=== PATIENT | male | born 1940 | race Caucasian/White ===

== ENCOUNTER 2017-08-17 15:50 | Emergency (ER) | payer MEDICARE, OTHER ==
[~2017-08-17] VITALS: Ht 177.8 cm; Wt 61.2 kg
[~2017-08-17 15:50] MED LIST: BUSPIRONE HCL15 MG PO; FISH OIL; FOLIC ACID1 MG PO; IRON TAB PO; LACTULOSE10 GM/15 M PO; OXYCONTIN30 MG PO; PANTOPRAZOLE SO40 MG PO; PROPRANOLOL HCL10 MG PO; SUCRALFATE1 GM; VITAMIN D PO; VITAMIN E; XANAX2 MG PO; XIFAXAN550 MG PO; [UNRECOGNIZED DRUG - OTHER] PO
== END 2017-08-17 17:41 | disposition left against medical advice (07) ==
LOC: ER 15:50
DX: K59.00 Constipation, unspecified (principal)
CPT/HCPCS: 99282

== ENCOUNTER 2019-11-26 18:46 | Inpatient (IN) | payer MEDICARE, OTHER ==
[~2019-11-26] VITALS: Ht 177.8 cm; Wt 61.2 kg
[~2019-11-26 18:46] MED LIST changes: -SUCRALFATE1 GM; +SUCRALFATE1 GM PO
[2019-11-26] MEDS ORDERED: LACTULOSE SYRUP 20 GM/30 ML UDC PO NR (19:00)
--- NOTE | 2019-11-26 19:09 | Emergency Department Note ---
History of Present Illnes History of Present Illness Chief Complaint: Abdominal Complaints History of Present Illness This is a 79 year old male arrives to ED with complaints of abdominal pain for several days, patient unable to be detailed history. Son states patient is on OxyContin and this is happening the past and is taking too much- where he becomes altered and more confused. Chief Complaint Comment LOWER QUADRANT PAIN. UNABLE TO ANSWER QUESTIONS APPROPRIATLY. JUST KEEPS SAYING I AM HURTING AND OH MY GOODNESS Historian: Patient Arrival Mode: Car Additional Treatment CAMPUS COORDINATOR: NONE Past Medical/Family History Physician Review I have reviewed the patient's past medical and family history. Any updates have been documented here. Past Medical History Recent Fever: No Clinical Suspicion of Infectio: No New/Unexplained Change in Ment: No Other Medical History: 1. Melena, resolved. 2. Alcoholic cirrhosis by history. 3. Anemia. 4. Thrombocytopenia. 5. Cancer of stomach by history, status post surgery, Radiation and Chemotherapy in 2007. 6. Dysrhythmia status post permanent pacemaker by history. 7. Right renal mass on CT abdomen detected during this hospitalization. 8. Chronic back pain with lumbar spondylosis. 9. Abnormal thyroid-stimulating hormone level. Other Surgery: REMOVED HALF OF STOMACH ([place]) Other Last Tetanus: UNK Review of Systems Review of Systems Constitutional: Reports no symptoms EENTM: Reports no symptoms Cardiovascular: Reports no symptoms Respiratory: Reports no symptoms Gastrointestinal: Reports as per HPI, Reports abdominal pain Genitourinary: Reports no symptoms Musculoskeletal: Reports no symptoms Integumentary: Reports no symptoms Neurological: Reports no symptoms Psychological: Reports no symptoms Endocrine: Reports no symptoms Hematological/Lymphatic: Reports no symptoms Physical Exam Related Data Allergies: Coded Allergies: No Known Drug Allergies (Verified Allergy, Mild, 01/10/08) Triage Vital Signs Vital Signs Date Time Temp Pulse Resp B/P (MAP) Pulse Ox O2 Delivery O2 Flow Rate FiO2 11/26/19 18:51 99.3 89 18 126/76 Room Air Physical Exam CONSTITUTIONAL Constitutional: Present well-developed, Present well-nourished HENT HENT: Present normocephalic, Present atraumatic, Present oropharynx clear/moist, Present nose normal HENT L/R: Present left ext ear normal, Present right ext ear normal EYES Eyes: Reports PERRL, Reports conjunctivae normal NECK Neck: Present ROM normal PULMONARY Pulmonary: Present effort normal, Present breath sounds normal CARDIOVASCULAR Cardiovascular: Present regular rhythm, Present heart sounds normal, Present capillary refill normal, Present normal rate GASTROINTESTINAL Abdominal: Present soft, Present nontender, Present bowel sounds normal GENITOURINARY Genitourinary: Present exam deferred SKIN Skin: Present warm, Present dry MUSCULOSKELETAL Musculoskeletal: Present ROM normal NEUROLOGICAL Neurological: Present alert, Present oriented x 3, Present no gross motor or sensory deficits PSYCHOLOGICAL Psychological: Present mood/affect normal, Present judgement normal Results Laboratory Lab results reviewed: Yes Laboratory comments Laboratory Tests Test 11/26/19 19:30 11/26/19 19:15 White Blood Count 11.88 x10e3/uL (4.8-10.8) Red Blood Count 3.78 x10e6/uL (4.3-5.7) Hemoglobin 11.6 g/dL (14.0-18.0) Hematocrit 35.2 % (38.2-49.6) Mean Corpuscular Volume 93.1 fL (81-99) Mean Corpuscular Hemoglobin 30.7 pg (28-32) Mean Corpuscular Hemoglobin Concent 33.0 g/dL (31-35) Red Cell Distribution Width 13.9 % (11.7-14.4) Platelet Count 137 x10e3/uL (140-360) Neutrophils (%) (Auto) 86.6 % (38.7-80.0) Lymphocytes (%) (Auto) 4.4 % (18.0-39.1) Monocytes (%) (Auto) 7.9 % (4.4-11.3) Eosinophils (%) (Auto) 0.3 % (0.0-6.0) Basophils (%) (Auto) 0.3 % (0.0-1.0) Neutrophils # (Auto) 10.3 (2.1-6.9) Lymphocytes # (Auto) 0.5 (1.0-3.2) Monocytes # (Auto) 0.9 (0.2-0.8) Eosinophils # (Auto) 0.0 (0.0-0.4) Basophils # (Auto) 0.0 (0.0-0.1) Absolute Immature Granulocyte (auto 0.06 x10e3/uL (0-0.1) Sodium Level 131 mmol/L (136-145) Potassium Level 5.2 mmol/L (3.5-5.1) Chloride Level 98 mmol/L (98-107) Carbon Dioxide Level 22 mmol/L (22-29) Anion Gap 16.2 mmol/L (8-16) Blood Urea Nitrogen 17 mg/dL (7-26) Creatinine 0.95 mg/dL (0.72-1.25) Estimat Glomerular Filtration Rate > 60 ML/MIN (60-) BUN/Creatinine Ratio 18 (6-25) Glucose Level 91 mg/dL (74-118) Calcium Level 8.7 mg/dL (8.4-10.2) Total Bilirubin 0.6 mg/dL (0.2-1.2) Aspartate Amino Transf (AST/SGOT) 45 IU/L (5-34) Alanine Aminotransferase (ALT/SGPT) 20 IU/L (0-55) Alkaline Phosphatase 71 IU/L (40-150) Ammonia 56 UG/DL (31-123) Creatine Kinase 144 IU/L (30-200) Creatine Kinase MB 3.90 ng/mL (0-5.0) Troponin I 0.015 ng/mL (0-0.300) Total Protein 7.0 g/dL (6.5-8.1) Albumin 3.7 g/dL (3.5-5.0) Globulin 3.3 g/dL (2.3-3.5) Albumin/Globulin Ratio 1.1 (0.8-2.0) Lipase 7 U/L (8-78) Urine Color Yellow (YELLOW) Urine Clarity Clear (CLEAR) Urine pH 7 (5 - 7) Urine Specific [place] 1.025 (1.010-1.025) Urine Protein Negative (NEGATIVE) Urine Glucose (UA) Negative (NEGATIVE) Urine Ketones Negative (NEGATIVE) Urine Blood Negative (NEGATIVE) Urine Nitrite Negative (NEGATIVE) Urine Bilirubin Negative (NEGATIVE) Urine Urobilinogen 1 mg/dL (0.2 - 1) Urine Leukocyte Esterase Negative (NEGATIVE) Urine RBC 0-5 /HPF (0-5) Urine WBC 0-5 /HPF (0-5) Urine Epithelial Cells None /LPF (NONE) Urine Bacteria Rare /HPF (NONE) Imaging Imaging results reviewed: Yes Impressions IMPRESSION: 1. Left lower lobe pneumonia. 2. Findings compatible with distal biliary obstruction due to choledocholithiasis in the distal common bile duct, with mild intrahepatic biliary ductal dilation and gallbladder distention. Correlate with lab values. Recommend right upper quadrant. 3. Pancreatic duct dilation can be due to pancreatic atrophy or due to distal pancreatic duct obstruction. 4. Colonic findings compatible with constipation. Assessment & Plan Medical Decision Making MDM 79-year-old male arrives to the ED with a change in mental status. Concerns of possible to much opiate use. Patient's pupils are pinpoint. Patient was admitted for altered mental status and closer monitoring. CT abdomen and pelvis performed given patient's complaints of pain. Concerning for choledocholithiasis. GI consulted and MRCP was ordered. CT shows questionable left lower lobe pneumonia, however, patient does not have a cough and low suspicion for this being a true clinical pneumonia based on patient's physical exam and history. No concerns of infection organ dysfunction at time of admission. Assessment & Plan Final Impression: (1) Choledocholithiasis Depart Disposition: ADMITTED Last Vital Signs Date Time Temp Pulse Resp B/P (MAP) Pulse Ox O2 Delivery O2 Flow Rate FiO2 11/26/19 18:51 99.3 89 18 126/76 Room Air Home Meds Reported Medications Lactulose (LACTULOSE) 10 Gm/15 Ml Solution, 10 GM PO TID 08/07/14 Oxycodone Hcl (OXYCONTIN) 30 Mg Tab.er.12h, 30 MG PO Q8H 08/07/14 Rifaximin (XIFAXAN) 550 Mg Tablet, 550 MG PO BID 04/25/12 Sucralfate (SUCRALFATE) 1 Gm Tablet, 1 GM PO BID 04/25/12 Medications in the ED Lactulose 20 gm ONCE ONCE PO ; Start 11/26/19 at 19:00; Stop 11/26/19 at 19:01; Status MARILYN LUGO, DO Nov 26, 2019 19:09
[2019-11-26 19:40] LABS: BASOPHILS % 0.3 % (0.0-1.0); EOSINOPHILS % 0.3 % (0.0-6.0); HEMATOCRIT 35.2 % (38.2-49.6); HEMOGLOBIN 11.6 g/dL (14.0-18.0); LYMPHOCYTES # (AUTO) 0.5 (1.0-3.2); LYMPHOCYTES % 4.4 % (18.0-39.1); MEAN CORPUSCULAR HEMOGLOBIN 30.7 pg (28-32); MEAN CORPUSCULAR VOLUME 93.1 fL (81-99); MONOCYTES # (AUTO) 0.9 (0.2-0.8); MONOCYTES % 7.9 % (4.4-11.3); NEUTROPHILS # (AUTO) 10.3 (2.1-6.9); NEUTROPHILS % 86.6 % (38.7-80.0); PLATELET COUNT 137 x10e3/uL (140-360); RED BLOOD COUNT 3.78 x10e6/uL (4.3-5.7); RED CELL DISTRIBUTION WIDTH 13.9 % (11.7-14.4)
--- OUTSIDE RECORDS SUMMARY | 2019-11-26 19:51 | XMS REPORT | Continuity of Care Document ---
Author Author [facility] Organization [facility] Address [address] [place] [place] [address] Phone Unavailable Care Team Providers Care Malt House Operator Name Role Phone TG FLOREZ MD PCP Payers Payer Name Policy Type Policy Number Effective Date Expiration Date S josselyn Miscellaneous Ppo [id number] 2004 00:00:00 [facility] Medicare A & B [id number] 2004 00:00:00 [facility] Problems Condition Name Condition Details Condition Category Status Onset Date Resolution Date Last Treatment Date Treating Clinician Comments Source Hepatic encephalopathy Hepatic encephalopathy Problem Active 2014-09-06 00:00:00 [facility] Hepatic cirrhosis Cirrhosis Problem Active 2014-09-05 00:00:00 [facility] Gastrointestinal hemorrhage GI bleed Problem Active 2014-09-05 00:00:00 [facility] Hyperammonemia Hyperammonemia Problem Active 2014-09-05 00:00:00 [facility] Allergies, Adverse Reactions, Alerts Allergy Name Allergy Type Status Severity Reaction(s) Onset Date Inacti ve Date Treating Clinician Comments Source adhesive tape DA Active 2017-04-10 00:00:00 [facility] nut - unspecified FA Active 2017-04-10 00:00:00 [facility] nut - unspecified DA Active 2017-04-10 00:00:00 [facility] Medications Ordered Medication Name Filled Medication Name Start Date Stop Da te Current Medication? Ordering Clinician Indication Dosage Frequency Signature (SIG) Comments Components Source Lactulose 10 Gm/15 Ml Solution Lactulose 10 Gm/15 Ml Solution Yes 1 Three Times A Day [facility] Oxycodone Hcl (Oxycontin) 30 Mg Tab.er.12h Oxycodone H cl (Oxycontin) 30 Mg Tab.er.12h Yes 30 Every 8 Hours C [facility] Rifaximin (Xifaxan) 550 Mg Tablet Rifaximin (Xifaxan) 550 Mg Tablet Yes 550 Twice A Day [facility] Sucralfate 1 Gm Tablet Sucralfate 1 Gm Tablet Yes 1 Twice A Day [facility] Pantoprazole Sodium (Protonix) 40 Mg Tablet., 40 Mg Oral Pantoprazole Sodium (Protonix) 40 Mg Tablet.dr, 40 Mg Oral 2016-09-03 00:00:00 No 40 Daily [facility] Propranolol Hcl 10 Mg Tablet, 10 Mg Oral Propranolol H cl 10 Mg Tablet, 10 Mg Oral 2016-09-03 00:00:00 No 10 Twice A Day [facility] Alprazolam (Xanax) 2 Mg Tablet, 4 Mg Oral Alprazolam ( Xanax) 2 Mg Tablet, 4 Mg Oral 2015-08-06 00:00:00 No 4 As Needed as neede d for Anxiety [facility] Folic Acid 1 Mg Tablet, 1 Mg Oral Folic Acid 1 Mg Tablet, 1 Mg O ral 2015-08-06 00:00:00 No 1 Daily [facility] Propranolol Hcl 10 Mg Tablet, 20 Mg Oral Propranolol H cl 10 Mg Tablet, 20 Mg Oral 2014-10-08 00:00:00 No 20 Twice A Day [facility] Buspirone Hcl 15 Mg Tablet, 15 Mg Oral Buspirone Hcl 15 Mg Table t, 15 Mg Oral 2014-08-07 00:00:00 No 15 Daily [facility] Fish Oil , Fish Oil , 2014-08-07 00:00:00 No Linda ly [facility] Folic Acid 1 Mg Tablet, 1 Mg Oral Folic Acid 1 Mg Tablet, 1 Mg O ral 2014-08-07 00:00:00 No 1 Daily [facility] Iron Tab , Mg Oral Iron Tab , Mg Oral 2014-08-07 00:00:00 No Daily [facility] Lactulo , 15 Mg Oral Lactulo , 15 Mg Oral 2014-08-07 00:00:00 No 15 Three Times A Day [facility] Vitamin D , Oral Vitamin D , Oral 2014-08-07 00:00:00 No Daily [facility] Vitamin E , Vitamin E , 2014-08-07 00:00:00 No D aily [facility] Procedures This patient has no known procedures. Encounters Start Date/Time End Date/Time [facility] ID Source 2017-08-17 15:50:00 2017-08-17 15:50:00 Registered Emergency Room [facility] [id number] [facility] 2016-12-15 10:23:00 2016-12-15 10:23:00 Registered Surgical Day Care [facility] [id number] [facility] Results Test Description Test Time Test Comments Results Result Comments Source - CT CHEST W/O CONTRAST 2019-06-29 10:32:00 Na me: JACK MANZANO [facility] : 1940 Age/S: 79 / M [address] [facility] Unit #: [id number] Loc: [place] [address] Phys: Tg Florez MD Acct: [id number] Dis Date: Status: REG CLI PHONE #: [phone] Exam Date: 06/29/2019927 FAX #: [phone] Reason: LUNG NODULE FU EXAMS: CPT CODE: [id number] CT CHEST W/O CONTRAST 88116 REASON FOR EXAM: LUNG NODULE FU EXAM ORDER DATE: 06/29/2019 9:25 AM Ordering MLuz Maria: Tg Florez MD PROCEDURE: - CT CHEST W/O CONTRAST Comparison:CT chest March 31, [address] images of the chest were obtained without IV contrast. Reconstructed sagittal and coronal images of the chest were provided for interpretation. Dose reduction techniques were applied. FINDINGS: The absence of IV contrast limits the sensitivity of this exam for detecting soft tissue pathology and differentiating atelectasis from consolidations. Visualized neck: Grossly normal Airways, Lungs and Pleura: There is a noncalcified nodule in the middle lobe (series 3 image 66) that measures 6 mm in size and is unchanged from the previous exam. There are a few additional punctate noncalcified nodules scattered throughout the right lung which are unchanged. Calcified granuloma in the left upper lobe abutting major fissure is stable in appearance. Heart, great vessels, pulmonary vessels, mediastinum: Left subclavian pacemaker is present with leads terminating in the right atrium and right ventricle. There is also severe three-vessel coronary atherosclerosis. Atherosclerotic calcifications are also present in the aorta. There is also a fusiform aneurysm of the ascending aorta measuring 4.5 cm in jason meter which is grossly unchanged from the previous examination. Normal caliber of the pulmonary trunk. Lymph nodes: No axillary, internal mammary, or mediastinal adenopathy. Calcified lymph nodes are present in the left hilum. Further evaluation of the hilar lymph nodes is limited due to the absence of IV contrast Musculoskeletal/chest wall: There are degenerative changes in the thoracic spine and there is height loss of the L1 vertebral body that PAGE 1 Signed Report (CONTINUED) Name: JACK MANZANO [facility] : 1940 Age/S: 79 / M [address] [facility] Unit #: [id number] Loc: [place] [address] Phys: Tg Florez MD Acct: [id number] Dis Date: Status: REG CLI PHONE #: [phone] Exam Date: 06/29/2019927 FAX #: [phone] Reason: LUNG NODULE FU EXAMS: CPT CODE: [id number] CT CHEST W/O CONTRAST [address]993 <Continued> is unchanged from the previous exam Visualized upper abdomen: Pancreas is atrophic. Postsurgical changes are present in the stomach. Heavy stool burden in the visualized colon IMPRESSION: Stable noncalcified nodule in the middle lobe of the right lung. This is likely benign. Prior granulomatous disease. Fusiform aneurysm of the ascending aorta is stable in size measuring 4.5 cm in diameter. Location: [facility] at 1032 Reported and signed by: Chiki Amos MD CC: Dr. Tg Florez Technologist:William Yarbrough RT(R),(MR),(CT) CTDI: DLP: Trnscb Date/Time: 06/29/2019 (1032) [id number] Orig Print D/T: S: 06/29/2019 (1467) PAGE 2 Signed Report COMPREHENSIVE METABOLIC PANEL 2019-06-19 17:22:00 Test Item SODIUM (test code = NA) 138 mmol/L 136-145 N POTASSIUM (test code = K) 4.9 mmol/L 3.5-5.1 N CHLORIDE (test code = CL) 104.0 mmol/L 98-107 N CARBON DIOXIDE (test code = CO2) 28.0 mmol/L 21-32 N ANION GAP (test code = GAP) 10.9 10-20 N GLUCOSE (test code = GLU) 91 mg/dL 74-106 N BLOOD UREA NITROGEN (test code = BUN) 10 mg/dL 7-18 N GLOMERULAR FILTRATION RATE (test code = GFR) > 60 mL/min >=60 Estimated GFR by using Modified MDRD formula.Chronic kidney disease is defined as either kidney damageor GFR <60 mL/min/1.73 m2 for >3 months. CREATININE (test code = CREAT) 0.80 mg/dL 0.7-1.3 N BUN/CREATININE RATIO (test code = BUN/CREA) 12.5 10-20 N TOTAL PROTEIN (test code = PROT) 7.0 gram/dL 6.4-8.2 N ALBUMIN (test code = ALB) 3.6 g/dL 3.4-5.0 N GLOBULIN (test code = GLOB) 3.4 gram/dL 2.7-4.2 N ALBUMIN/GLOBULIN RATIO (test code = A/G) 1.1 0.75-1.50 N CALCIUM (test code = CA) 8.9 mg/dL 8.5-10.1 N BILIRUBIN TOTAL (test code = BILT) 0.50 mg/dL 0.0-1.0 N SGOT/AST (test code = AST) 21 IUnit/L 15-37 N SGPT/ALT (test code = ALT) 19 IUnit/L 12-78 N ALKALINE PHOSPHATASE TOTAL (test code = ALKP) 102 IUnit/L 45-117 N Note change in reference range due to change in reagent. [id number] 17:22:00* Test Item Value Reference Range Interpretation Comments MAGNESIUM (test code = MAG) 2.1 mg/dL 1.8-2.4 N THYROID PROFILE [id number] 17:22:00* Test Item Value Reference Range Interpretation Comments T3 UPTAKE (test code = T3UP) 36.0 % 30.0-40.0 N T4 (THYROXINE) (test code = T4) 9.0 ug/dL 4.5-13.9 N T7 (FREE THYROXINE INDEX) (test code = T7) 3.24 FTI 1.3-5.1 N THYROID STIMULATING HORMONE (test code = TSH) 2.940 uIU/mL 0.36-3.7 4 N TSH REFERENCE RANGES: EUTHYROID: 0.35 - 4.3 mIU/mL HYPO : > 5.5 mIU/mL HYPER : < 0.35 mIU/mL COMPREHENSIVE METABOLIC [id number] 17:06:00* Test Item Value Reference Range Interpretation Comments SODIUM (test code = NA) 138 mmol/L 136-145 N POTASSIUM (test code = K) 4.9 mmol/L 3.5-5.1 N CHLORIDE (test code = CL) 104.0 mmol/L 98-107 N CARBON DIOXIDE (test code = CO2) mmol/L 21-32 ANION GAP (test code = GAP) 10-20 GLUCOSE (test code = GLU) mg/dL 74-106 BLOOD UREA NITROGEN (test code = BUN) mg/dL 7-18 GLOMERULAR FILTRATION RATE (test code = GFR) mL/min >=60 CREATININE (test code = CREAT) mg/dL 0.7-1.3 BUN/CREATININE RATIO (test code = BUN/CREA) 10-20 TOTAL PROTEIN (test code = PROT) gram/dL 6.4-8.2 ALBUMIN (test code = ALB) g/dL 3.4-5.0 GLOBULIN (test code = GLOB) gram/dL 2.7-4.2 ALBUMIN/GLOBULIN RATIO (test code = A/G) 0.75-1.50 CALCIUM (test code = CA) mg/dL 8.5-10.1 BILIRUBIN TOTAL (test code = BILT) mg/dL 0.0-1.0 SGOT/AST (test code = AST) IUnit/L 15-37 SGPT/ALT (test code = ALT) IUnit/L 12-78 ALKALINE PHOSPHATASE TOTAL (test code = ALKP) IUnit/L 45-117 [id number] 17:06:00* Test Item Value Reference Range Interpretation Comments MAGNESIUM (test code = MAG) mg/dL 1.8-2.4 THYROID PROFILE [id number] 17:06:00* Test Item Value Reference Range Interpretation Comments T3 UPTAKE (test code = T3UP) % 30.0-40.0 T4 (THYROXINE) (test code = T4) ug/dL 4.5-13.9 T7 (FREE THYROXINE INDEX) (test code = T7) FTI 1.3-5.1 THYROID STIMULATING HORMONE (test code = TSH) uIU/mL 0.36-3.7 4 CBC W/AUTO [id number] 16:41:00* Test Item Value Reference Range Interpretation Comments WHITE BLOOD CELL (test code = WBC) 3.5 K/mm3 4.5-12.5 L RED BLOOD CELL (test code = RBC) 4.23 mill/mm3 4.0-5.8 N HEMOGLOBIN (test code = HGB) 12.4 gram/dL 13.0-17.5 L HEMATOCRIT (test code = HCT) 38.4 % 42.0-52.0 L MEAN CELL VOLUME (test code = MCV) 90.8 fL 80-98 N MEAN CELL HGB (test code = MCH) 29.3 picogram 27.0-33.0 N MEAN CELL HGB CONCETRATION (test code = MCHC) 32.3 gram/dL 33.0-36. 0 L RED CELL DISTRIBUTION WIDTH (test code = RDW) 15.9 % 11.6-16. 2 N RED CELL DISTRIBUTION WIDTH SD (test code = RDW-SD) 53.4 fL 37 .0-51.0 H PLATELET COUNT (test code = PLT) 107 K/mm3 150-450 L MEAN PLATELET VOLUME (test code = MPV) 11.5 fL 6.7-11.0 H NEUTROPHIL % (test code = NT%) 50.8 % 39.0-69.0 N IMMATURE GRANULOCYTE % (test code = IG%) 0.3 % 0.0-5.0 N LYMPHOCYTE % (test code = LY%) 31.0 % 25.0-55.0 N MONOCYTE % (test code = MO%) 14.5 % 0.0-10.0 H EOSINOPHIL % (test code = EO%) 2.3 % 0.0-5.0 N BASOPHIL % (test code = BA%) 1.1 % 0.0-1.0 H NUCLEATED RBC % (test code = NRBC%) 0.0 % 0-0 N NEUTROPHIL # (test code = NT#) 1.79 K/mm3 1.8-7.7 L IMMATURE GRANULOCYTE # (test code = IG#) 0.01 x10 3/uL 0-0.03 N LYMPHOCYTE # (test code = LY#) 1.09 K/mm3 1.0-5.0 N MONOCYTE # (test code = MO#) 0.51 K/mm3 0-0.8 N EOSINOPHIL # (test code = EO#) 0.08 K/mm3 0.0-0.5 N BASOPHIL # (test code = BA#) 0.04 K/mm3 0.0-0.2 N NUCLEATED RBC # (test code = NRBC#) 0.00 K/mm3 0.0-0.1 N MANUAL DIFF REQUIRED (test code = MDIFF) NO BASIC METABOLIC [id number] 17:15:00* Test Item Value Reference Range Interpretation Comments SODIUM (test code = NA) 140 mmol/L 136-145 N POTASSIUM (test code = K) 4.4 mmol/L 3.5-5.1 N CHLORIDE (test code = CL) 108.0 mmol/L 98-107 H CARBON DIOXIDE (test code = CO2) 30.0 mmol/L 21-32 N ANION GAP (test code = GAP) 6.4 10-20 L GLUCOSE (test code = GLU) 93 mg/dL 74-106 N BLOOD UREA NITROGEN (test code = BUN) 13 mg/dL 7-18 N GLOMERULAR FILTRATION RATE (test code = GFR) > 60 mL/min >=60 Estimated GFR by using Modified MDRD formula.Chronic kidney disease is defined as either kidney damageor GFR <60 mL/min/1.73 m2 for >3 months. CREATININE (test code = CREAT) 0.90 mg/dL 0.7-1.3 N BUN/CREATININE RATIO (test code = BUN/CREA) 14.1 10-20 N CALCIUM (test code = CA) 8.8 mg/dL 8.5-10.1 N [id number] 17:15:00* Test Item Value Reference Range Interpretation Comments MAGNESIUM (test code = MAG) 2.2 mg/dL 1.8-2.4 N THYROID PROFILE [id number] 17:15:00* Test Item Value Reference Range Interpretation Comments T3 UPTAKE (test code = T3UP) 35.0 % 30.0-40.0 N T4 (THYROXINE) (test code = T4) 7.4 ug/dL 4.5-13.9 N T7 (FREE THYROXINE INDEX) (test code = T7) 2.59 FTI 1.3-5.1 N THYROID STIMULATING HORMONE (test code = TSH) 5.020 uIU/mL 0.36-3.7 4 H TSH REFERENCE RANGES: EUTHYROID: 0.35 - 4.3 mIU/mL HYPO : > 5.5 mIU/mL HYPER : < 0.35 mIU/mL BASIC METABOLIC [id number] 17:01:00* Test Item Value Reference Range Interpretation Comments SODIUM (test code = NA) 140 mmol/L 136-145 N POTASSIUM (test code = K) 4.4 mmol/L 3.5-5.1 N CHLORIDE (test code = CL) 108.0 mmol/L 98-107 H CARBON DIOXIDE (test code = CO2) mmol/L 21-32 ANION GAP (test code = GAP) 10-20 GLUCOSE (test code = GLU) mg/dL 74-106 BLOOD UREA NITROGEN (test code = BUN) mg/dL 7-18 GLOMERULAR FILTRATION RATE (test code = GFR) mL/min >=60 CREATININE (test code = CREAT) mg/dL 0.7-1.3 BUN/CREATININE RATIO (test code = BUN/CREA) 10-20 CALCIUM (test code = CA) mg/dL 8.5-10.1 [id number] 17:01:00* Test Item Value Reference Range Interpretation Comments MAGNESIUM (test code = MAG) mg/dL 1.8-2.4 THYROID PROFILE [id number] 17:01:00* Test Item Value Reference Range Interpretation Comments T3 UPTAKE (test code = T3UP) % 30.0-40.0 T4 (THYROXINE) (test code = T4) ug/dL 4.5-13.9 T7 (FREE THYROXINE INDEX) (test code = T7) FTI 1.3-5.1 THYROID STIMULATING HORMONE (test code = TSH) uIU/mL 0.36-3.7 4 COMPREHENSIVE METABOLIC [id number] 06:34:00* Test Item Value Reference Range Interpretation Comments SODIUM (test code = NA) 143 mmol/L 136-145 N POTASSIUM (test code = K) 3.6 mmol/L 3.5-5.1 N CHLORIDE (test code = CL) 113.0 mmol/L 98-107 H CARBON DIOXIDE (test code = CO2) 23.0 mmol/L 21-32 N ANION GAP (test code = GAP) 10.6 10-20 N GLUCOSE (test code = GLU) 87 mg/dL 74-106 N BLOOD UREA NITROGEN (test code = BUN) 7 mg/dL 7-18 N GLOMERULAR FILTRATION RATE (test code = GFR) > 60 mL/min >=60 Estimated GFR by using Modified MDRD formula.Chronic kidney disease is defined as either kidney damageor GFR <60 mL/min/1.73 m2 for >3 months. CREATININE (test code = CREAT) 0.60 mg/dL 0.7-1.3 L BUN/CREATININE RATIO (test code = BUN/CREA) 11.1 10-20 N TOTAL PROTEIN (test code = PROT) 4.9 gram/dL 6.4-8.2 L ALBUMIN (test code = ALB) 2.0 g/dL 3.4-5.0 L GLOBULIN (test code = GLOB) 2.9 gram/dL 2.7-4.2 N ALBUMIN/GLOBULIN RATIO (test code = A/G) 0.7 0.75-1.50 L CALCIUM (test code = CA) 7.4 mg/dL 8.5-10.1 L BILIRUBIN TOTAL (test code = BILT) 0.40 mg/dL 0.0-1.0 N SGOT/AST (test code = AST) 11 IUnit/L 15-37 L SGPT/ALT (test code = ALT) 10 IUnit/L 12-78 L ALKALINE PHOSPHATASE TOTAL (test code = ALKP) 46 IUnit/L 45-117 N Note change in reference range due to change in reagent. COMPREHENSIVE METABOLIC [id number] 06:14:00* Test Item Value Reference Range Interpretation Comments SODIUM (test code = NA) 143 mmol/L 136-145 N POTASSIUM (test code = K) 3.6 mmol/L 3.5-5.1 N CHLORIDE (test code = CL) 113.0 mmol/L 98-107 H CARBON DIOXIDE (test code = CO2) mmol/L 21-32 ANION GAP (test code = GAP) 10-20 GLUCOSE (test code = GLU) mg/dL 74-106 BLOOD UREA NITROGEN (test code = BUN) mg/dL 7-18 GLOMERULAR FILTRATION RATE (test code = GFR) mL/min >=60 CREATININE (test code = CREAT) mg/dL 0.7-1.3 BUN/CREATININE RATIO (test code = BUN/CREA) 10-20 TOTAL PROTEIN (test code = PROT) gram/dL 6.4-8.2 ALBUMIN (test code = ALB) g/dL 3.4-5.0 GLOBULIN (test code = GLOB) gram/dL 2.7-4.2 ALBUMIN/GLOBULIN RATIO (test code = A/G) 0.75-1.50 CALCIUM (test code = CA) mg/dL 8.5-10.1 BILIRUBIN TOTAL (test code = BILT) mg/dL 0.0-1.0 SGOT/AST (test code = AST) IUnit/L 15-37 SGPT/ALT (test code = ALT) IUnit/L 12-78 ALKALINE PHOSPHATASE TOTAL (test code = ALKP) IUnit/L 45-117 CBC W/AUTO [id number] 05:33:00* Test Item Value Reference Range Interpretation Comments WHITE BLOOD CELL (test code = WBC) 2.8 K/mm3 4.5-12.5 L RED BLOOD CELL (test code = RBC) 2.85 mill/mm3 4.0-5.8 L HEMOGLOBIN (test code = HGB) 8.7 gram/dL 13.0-17.5 L HEMATOCRIT (test code = HCT) 25.9 % 42.0-52.0 L MEAN CELL VOLUME (test code = MCV) 90.9 fL 80-98 N MEAN CELL HGB (test code = MCH) 30.5 picogram 27.0-33.0 N MEAN CELL HGB CONCETRATION (test code = MCHC) 33.6 gram/dL 33.0-36. 0 N RED CELL DISTRIBUTION WIDTH (test code = RDW) 15.9 % 11.6-16. 2 N RED CELL DISTRIBUTION WIDTH SD (test code = RDW-SD) 52.7 fL 37 .0-51.0 H PLATELET COUNT (test code = PLT) 97 K/mm3 150-450 L RESULT VERIFIED BY REPEAT ANALYSIS MEAN PLATELET VOLUME (test code = MPV) 10.7 fL 6.7-11.0 N NEUTROPHIL % (test code = NT%) 60.9 % 39.0-69.0 N IMMATURE GRANULOCYTE % (test code = IG%) 1.8 % 0.0-5.0 N LYMPHOCYTE % (test code = LY%) 17.0 % 25.0-55.0 L MONOCYTE % (test code = MO%) 16.0 % 0.0-10.0 H EOSINOPHIL % (test code = EO%) 3.2 % 0.0-5.0 N BASOPHIL % (test code = BA%) 1.1 % 0.0-1.0 H NUCLEATED RBC % (test code = NRBC%) 0.0 % 0-0 N NEUTROPHIL # (test code = NT#) 1.72 K/mm3 1.8-7.7 L IMMATURE GRANULOCYTE # (test code = IG#) 0.05 x10 3/uL 0-0.03 H LYMPHOCYTE # (test code = LY#) 0.48 K/mm3 1.0-5.0 L MONOCYTE # (test code = MO#) 0.45 K/mm3 0-0.8 N EOSINOPHIL # (test code = EO#) 0.09 K/mm3 0.0-0.5 N BASOPHIL # (test code = BA#) 0.03 K/mm3 0.0-0.2 N NUCLEATED RBC # (test code = NRBC#) 0.00 K/mm3 0.0-0.1 N MANUAL DIFF REQUIRED (test code = MDIFF) NO CBC W/AUTO [id number] 07:30:00* Test Item Value Reference Range Interpretation Comments WHITE BLOOD CELL (test code = WBC) 4.3 K/mm3 4.5-12.5 L RED BLOOD CELL (test code = RBC) 2.75 mill/mm3 4.0-5.8 L HEMOGLOBIN (test code = HGB) 8.5 gram/dL 13.0-17.5 L HEMATOCRIT (test code = HCT) 25.2 % 42.0-52.0 L MEAN CELL VOLUME (test code = MCV) 91.6 fL 80-98 N MEAN CELL HGB (test code = MCH) 30.9 picogram 27.0-33.0 N MEAN CELL HGB CONCETRATION (test code = MCHC) 33.7 gram/dL 33.0-36. 0 N RED CELL DISTRIBUTION WIDTH (test code = RDW) 15.9 % 11.6-16. 2 N RED CELL DISTRIBUTION WIDTH SD (test code = RDW-SD) 52.7 fL 37 .0-51.0 H PLATELET COUNT (test code = PLT) 74 K/mm3 150-450 L MEAN PLATELET VOLUME (test code = MPV) 10.5 fL 6.7-11.0 N NEUTROPHIL % (test code = NT%) 69.9 % 39.0-69.0 H IMMATURE GRANULOCYTE % (test code = IG%) 1.4 % 0.0-5.0 N LYMPHOCYTE % (test code = LY%) 13.6 % 25.0-55.0 L MONOCYTE % (test code = MO%) 12.7 % 0.0-10.0 H EOSINOPHIL % (test code = EO%) 1.9 % 0.0-5.0 N BASOPHIL % (test code = BA%) 0.5 % 0.0-1.0 N NUCLEATED RBC % (test code = NRBC%) 0.0 % 0-0 N NEUTROPHIL # (test code = NT#) 2.98 K/mm3 1.8-7.7 N IMMATURE GRANULOCYTE # (test code = IG#) 0.06 x10 3/uL 0-0.03 H LYMPHOCYTE # (test code = LY#) 0.58 K/mm3 1.0-5.0 L MONOCYTE # (test code = MO#) 0.54 K/mm3 0-0.8 N EOSINOPHIL # (test code = EO#) 0.08 K/mm3 0.0-0.5 N BASOPHIL # (test code = BA#) 0.02 K/mm3 0.0-0.2 N NUCLEATED RBC # (test code = NRBC#) 0.00 K/mm3 0.0-0.1 N MANUAL DIFF REQUIRED (test code = MDIFF) NO, ONLY SCAN NEEDED DIFFERENTIAL [id number] 07:30:00* Test Item Value Reference Range Interpretation Comments STAIN ACCEPTABILITY (test code = STN ACCEPTABLE) STAIN ACCEPTABLE POIKILOCYTOSIS (test code = POIK) 3+ ANISOCYTOSIS (test code = ANISO) 1+ MACROCYTOSIS (test code = MACR) 1+ TARGET CELLS (test code = TGT) 1+ ELLIPTOCYTES (test code = ELL) 1+ CRENATED CELLS (test code = CREN) 2+ PLATELET ESTIMATE (test code = PLTEST) DECREASED PLATELET MORPHOLOGY (test code = PLTMORPH) SIZE VARIABLE COMPREHENSIVE METABOLIC [id number] 04:36:00* Test Item Value Reference Range Interpretation Comments SODIUM (test code = NA) 146 mmol/L 136-145 H POTASSIUM (test code = K) 3.4 mmol/L 3.5-5.1 L CHLORIDE (test code = CL) 114.0 mmol/L 98-107 H CARBON DIOXIDE (test code = CO2) 24.0 mmol/L 21-32 N ANION GAP (test code = GAP) 11.4 10-20 N GLUCOSE (test code = GLU) 113 mg/dL 74-106 H BLOOD UREA NITROGEN (test code = BUN) 7 mg/dL 7-18 N GLOMERULAR FILTRATION RATE (test code = GFR) > 60 mL/min >=60 Estimated GFR by using Modified MDRD formula.Chronic kidney disease is defined as either kidney damageor GFR <60 mL/min/1.73 m2 for >3 months. CREATININE (test code = CREAT) 0.80 mg/dL 0.7-1.3 N BUN/CREATININE RATIO (test code = BUN/CREA) 9.1 10-20 L TOTAL PROTEIN (test code = PROT) 4.8 gram/dL 6.4-8.2 L ALBUMIN (test code = ALB) 2.1 g/dL 3.4-5.0 L GLOBULIN (test code = GLOB) 2.7 gram/dL 2.7-4.2 N ALBUMIN/GLOBULIN RATIO (test code = A/G) 0.8 0.75-1.50 N CALCIUM (test code = CA) 7.3 mg/dL 8.5-10.1 L BILIRUBIN TOTAL (test code = BILT) 0.50 mg/dL 0.0-1.0 N SGOT/AST (test code = AST) 10 IUnit/L 15-37 L SGPT/ALT (test code = ALT) 13 IUnit/L 12-78 N ALKALINE PHOSPHATASE TOTAL (test code = ALKP) 45 IUnit/L 45-117 N Note change in reference range due to change in reagent. COMPREHENSIVE METABOLIC [id number] 04:23:00* Test Item Value Reference Range Interpretation Comments SODIUM (test code = NA) 146 mmol/L 136-145 H POTASSIUM (test code = K) 3.4 mmol/L 3.5-5.1 L CHLORIDE (test code = CL) 114.0 mmol/L 98-107 H CARBON DIOXIDE (test code = CO2) mmol/L 21-32 ANION GAP (test code = GAP) 10-20 GLUCOSE (test code = GLU) mg/dL 74-106 BLOOD UREA NITROGEN (test code = BUN) mg/dL 7-18 GLOMERULAR FILTRATION RATE (test code = GFR) mL/min >=60 CREATININE (test code = CREAT) mg/dL 0.7-1.3 BUN/CREATININE RATIO (test code = BUN/CREA) 10-20 TOTAL PROTEIN (test code = PROT) gram/dL 6.4-8.2 ALBUMIN (test code = ALB) g/dL 3.4-5.0 GLOBULIN (test code = GLOB) gram/dL 2.7-4.2 ALBUMIN/GLOBULIN RATIO (test code = A/G) 0.75-1.50 CALCIUM (test code = CA) mg/dL 8.5-10.1 BILIRUBIN TOTAL (test code = BILT) mg/dL 0.0-1.0 SGOT/AST (test code = AST) IUnit/L 15-37 SGPT/ALT (test code = ALT) IUnit/L 12-78 ALKALINE PHOSPHATASE TOTAL (test code = ALKP) IUnit/L 45-117 CBC W/AUTO [id number] 04:13:00* Test Item Value Reference Range Interpretation Comments WHITE BLOOD CELL (test code = WBC) 4.3 K/mm3 4.5-12.5 L RED BLOOD CELL (test code = RBC) 2.75 mill/mm3 4.0-5.8 L HEMOGLOBIN (test code = HGB) 8.5 gram/dL 13.0-17.5 L HEMATOCRIT (test code = HCT) 25.2 % 42.0-52.0 L MEAN CELL VOLUME (test code = MCV) 91.6 fL 80-98 N MEAN CELL HGB (test code = MCH) 30.9 picogram 27.0-33.0 N MEAN CELL HGB CONCETRATION (test code = MCHC) 33.7 gram/dL 33.0-36. 0 N RED CELL DISTRIBUTION WIDTH (test code = RDW) 15.9 % 11.6-16. 2 N RED CELL DISTRIBUTION WIDTH SD (test code = RDW-SD) 52.7 fL 37 .0-51.0 H PLATELET COUNT (test code = PLT) 74 K/mm3 150-450 L MEAN PLATELET VOLUME (test code = MPV) 10.5 fL 6.7-11.0 N NEUTROPHIL % (test code = NT%) 69.9 % 39.0-69.0 H IMMATURE GRANULOCYTE % (test code = IG%) 1.4 % 0.0-5.0 N LYMPHOCYTE % (test code = LY%) 13.6 % 25.0-55.0 L MONOCYTE % (test code = MO%) 12.7 % 0.0-10.0 H EOSINOPHIL % (test code = EO%) 1.9 % 0.0-5.0 N BASOPHIL % (test code = BA%) 0.5 % 0.0-1.0 N NUCLEATED RBC % (test code = NRBC%) 0.0 % 0-0 N NEUTROPHIL # (test code = NT#) 2.98 K/mm3 1.8-7.7 N IMMATURE GRANULOCYTE # (test code = IG#) 0.06 x10 3/uL 0-0.03 H LYMPHOCYTE # (test code = LY#) 0.58 K/mm3 1.0-5.0 L MONOCYTE # (test code = MO#) 0.54 K/mm3 0-0.8 N EOSINOPHIL # (test code = EO#) 0.08 K/mm3 0.0-0.5 N BASOPHIL # (test code = BA#) 0.02 K/mm3 0.0-0.2 N NUCLEATED RBC # (test code = NRBC#) 0.00 K/mm3 0.0-0.1 N MANUAL DIFF REQUIRED (test code = MDIFF) NO, ONLY SCAN NEEDED DIFFERENTIAL [id number] 04:13:00* Test Item Value Reference Range Interpretation Comments STAIN ACCEPTABILITY (test code = STN ACCEPTABLE) CABOT RINGS (test code = CAB) MORPHOLOGY COMMENT (test code = MOC) PLATELET ESTIMATE (test code = PLTEST) PLATELET MORPHOLOGY (test code = PLTMORPH) CBC W/AUTO [id number] 04:13:00* Test Item Value Reference Range Interpretation Comments WHITE BLOOD CELL (test code = WBC) 4.3 K/mm3 4.5-12.5 L RED BLOOD CELL (test code = RBC) 2.75 mill/mm3 4.0-5.8 L HEMOGLOBIN (test code = HGB) 8.5 gram/dL 13.0-17.5 L HEMATOCRIT (test code = HCT) 25.2 % 42.0-52.0 L MEAN CELL VOLUME (test code = MCV) 91.6 fL 80-98 N MEAN CELL HGB (test code = MCH) 30.9 picogram 27.0-33.0 N MEAN CELL HGB CONCETRATION (test code = MCHC) 33.7 gram/dL 33.0-36. 0 N RED CELL DISTRIBUTION WIDTH (test code = RDW) 15.9 % 11.6-16. 2 N RED CELL DISTRIBUTION WIDTH SD (test code = RDW-SD) 52.7 fL 37 .0-51.0 H PLATELET COUNT (test code = PLT) 74 K/mm3 150-450 L MEAN PLATELET VOLUME (test code = MPV) 10.5 fL 6.7-11.0 N NEUTROPHIL % (test code = NT%) 69.9 % 39.0-69.0 H IMMATURE GRANULOCYTE % (test code = IG%) 1.4 % 0.0-5.0 N LYMPHOCYTE % (test code = LY%) 13.6 % 25.0-55.0 L MONOCYTE % (test code = MO%) 12.7 % 0.0-10.0 H EOSINOPHIL % (test code = EO%) 1.9 % 0.0-5.0 N BASOPHIL % (test code = BA%) 0.5 % 0.0-1.0 N NUCLEATED RBC % (test code = NRBC%) 0.0 % 0-0 N NEUTROPHIL # (test code = NT#) 2.98 K/mm3 1.8-7.7 N IMMATURE GRANULOCYTE # (test code = IG#) 0.06 x10 3/uL 0-0.03 H LYMPHOCYTE # (test code = LY#) 0.58 K/mm3 1.0-5.0 L MONOCYTE # (test code = MO#) 0.54 K/mm3 0-0.8 N EOSINOPHIL # (test code = EO#) 0.08 K/mm3 0.0-0.5 N BASOPHIL # (test code = BA#) 0.02 K/mm3 0.0-0.2 N NUCLEATED RBC # (test code = NRBC#) 0.00 K/mm3 0.0-0.1 N MANUAL DIFF REQUIRED (test code = MDIFF) NO, ONLY SCAN NEEDED DIFFERENTIAL [id number] 04:13:00* Test Item Value Reference Range Interpretation Comments STAIN ACCEPTABILITY (test code = STN ACCEPTABLE) CABOT RINGS (test code = CAB) MORPHOLOGY COMMENT (test code = MOC) PLATELET ESTIMATE (test code = PLTEST) PLATELET MORPHOLOGY (test code = PLTMORPH) CBC W/AUTO [id number] 04:13:00* Test Item Value Reference Range Interpretation Comments WHITE BLOOD CELL (test code = WBC) 4.3 K/mm3 4.5-12.5 L RED BLOOD CELL (test code = RBC) 2.75 mill/mm3 4.0-5.8 L HEMOGLOBIN (test code = HGB) 8.5 gram/dL 13.0-17.5 L HEMATOCRIT (test code = HCT) 25.2 % 42.0-52.0 L MEAN CELL VOLUME (test code = MCV) 91.6 fL 80-98 N MEAN CELL HGB (test code = MCH) 30.9 picogram 27.0-33.0 N MEAN CELL HGB CONCETRATION (test code = MCHC) 33.7 gram/dL 33.0-36. 0 N RED CELL DISTRIBUTION WIDTH (test code = RDW) 15.9 % 11.6-16. 2 N RED CELL DISTRIBUTION WIDTH SD (test code = RDW-SD) 52.7 fL 37 .0-51.0 H PLATELET COUNT (test code = PLT) 74 K/mm3 150-450 L MEAN PLATELET VOLUME (test code = MPV) 10.5 fL 6.7-11.0 N NEUTROPHIL % (test code = NT%) 69.9 % 39.0-69.0 H IMMATURE GRANULOCYTE % (test code = IG%) 1.4 % 0.0-5.0 N LYMPHOCYTE % (test code = LY%) 13.6 % 25.0-55.0 L MONOCYTE % (test code = MO%) 12.7 % 0.0-10.0 H EOSINOPHIL % (test code = EO%) 1.9 % 0.0-5.0 N BASOPHIL % (test code = BA%) 0.5 % 0.0-1.0 N NUCLEATED RBC % (test code = NRBC%) 0.0 % 0-0 N NEUTROPHIL # (test code = NT#) 2.98 K/mm3 1.8-7.7 N IMMATURE GRANULOCYTE # (test code = IG#) 0.06 x10 3/uL 0-0.03 H LYMPHOCYTE # (test code = LY#) 0.58 K/mm3 1.0-5.0 L MONOCYTE # (test code = MO#) 0.54 K/mm3 0-0.8 N EOSINOPHIL # (test code = EO#) 0.08 K/mm3 0.0-0.5 N BASOPHIL # (test code = BA#) 0.02 K/mm3 0.0-0.2 N NUCLEATED RBC # (test code = NRBC#) 0.00 K/mm3 0.0-0.1 N MANUAL DIFF REQUIRED (test code = MDIFF) NO, ONLY SCAN NEEDED DIFFERENTIAL [id number] 04:13:00* Test Item Value Reference Range Interpretation Comments STAIN ACCEPTABILITY (test code = STN ACCEPTABLE) MORPHOLOGY COMMENT (test code = MOC) PLATELET ESTIMATE (test code = PLTEST) PLATELET MORPHOLOGY (test code = PLTMORPH) CBC W/AUTO [id number] 04:13:00* Test Item Value Reference Range Interpretation Comments WHITE BLOOD CELL (test code = WBC) 4.3 K/mm3 4.5-12.5 L RED BLOOD CELL (test code = RBC) 2.75 mill/mm3 4.0-5.8 L HEMOGLOBIN (test code = HGB) 8.5 gram/dL 13.0-17.5 L HEMATOCRIT (test code = HCT) 25.2 % 42.0-52.0 L MEAN CELL VOLUME (test code = MCV) 91.6 fL 80-98 N MEAN CELL HGB (test code = MCH) 30.9 picogram 27.0-33.0 N MEAN CELL HGB CONCETRATION (test code = MCHC) 33.7 gram/dL 33.0-36. 0 N RED CELL DISTRIBUTION WIDTH (test code = RDW) 15.9 % 11.6-16. 2 N RED CELL DISTRIBUTION WIDTH SD (test code = RDW-SD) 52.7 fL 37 .0-51.0 H PLATELET COUNT (test code = PLT) 74 K/mm3 150-450 L MEAN PLATELET VOLUME (test code = MPV) 10.5 fL 6.7-11.0 N NEUTROPHIL % (test code = NT%) 69.9 % 39.0-69.0 H IMMATURE GRANULOCYTE % (test code = IG%) 1.4 % 0.0-5.0 N LYMPHOCYTE % (test code = LY%) 13.6 % 25.0-55.0 L MONOCYTE % (test code = MO%) 12.7 % 0.0-10.0 H EOSINOPHIL % (test code = EO%) 1.9 % 0.0-5.0 N BASOPHIL % (test code = BA%) 0.5 % 0.0-1.0 N NUCLEATED RBC % (test code = NRBC%) 0.0 % 0-0 N NEUTROPHIL # (test code = NT#) 2.98 K/mm3 1.8-7.7 N IMMATURE GRANULOCYTE # (test code = IG#) 0.06 x10 3/uL 0-0.03 H LYMPHOCYTE # (test code = LY#) 0.58 K/mm3 1.0-5.0 L MONOCYTE # (test code = MO#) 0.54 K/mm3 0-0.8 N EOSINOPHIL # (test code = EO#) 0.08 K/mm3 0.0-0.5 N BASOPHIL # (test code = BA#) 0.02 K/mm3 0.0-0.2 N NUCLEATED RBC # (test code = NRBC#) 0.00 K/mm3 0.0-0.1 N MANUAL DIFF REQUIRED (test code = MDIFF) NO, ONLY SCAN NEEDED DIFFERENTIAL [id number] 04:13:00* Test Item Value Reference Range Interpretation Comments STAIN ACCEPTABILITY (test code = STN ACCEPTABLE) CABOT RINGS (test code = CAB) MORPHOLOGY COMMENT (test code = MOC) PLATELET ESTIMATE (test code = PLTEST) PLATELET MORPHOLOGY (test code = PLTMORPH) CBC W/MANUAL [id number] 06:45:00* Test Item Value Reference Range Interpretation Comments WHITE BLOOD CELL (test code = WBC) 5.9 K/mm3 4.5-12.5 N RED BLOOD CELL (test code = RBC) 2.81 mill/mm3 4.0-5.8 L HEMOGLOBIN (test code = HGB) 8.6 gram/dL 13.0-17.5 L HEMATOCRIT (test code = HCT) 25.8 % 42.0-52.0 L MEAN CELL VOLUME (test code = MCV) 91.8 fL 80-98 N MEAN CELL HGB (test code = MCH) 30.6 picogram 27.0-33.0 N MEAN CELL HGB CONCETRATION (test code = MCHC) 33.3 gram/dL 33.0-36. 0 N RED CELL DISTRIBUTION WIDTH (test code = RDW) 15.8 % 11.6-16. 2 N RED CELL DISTRIBUTION WIDTH SD (test code = RDW-SD) 52.7 fL 37 .0-51.0 H PLATELET COUNT (test code = PLT) 72 K/mm3 150-450 L MEAN PLATELET VOLUME (test code = MPV) 11.2 fL 6.7-11.0 H IMMATURE GRANULOCYTE % (test code = IG%) 0.8 % 0.0-5.0 N NUCLEATED RBC % (test code = NRBC%) 0.0 % 0-0 N NEUTROPHIL # (test code = NT#) 4.80 K/mm3 1.8-7.7 N IMMATURE GRANULOCYTE # (test code = IG#) 0.05 x10 3/uL 0-0.03 H LYMPHOCYTE # (test code = LY#) 0.45 K/mm3 1.0-5.0 L MONOCYTE # (test code = MO#) 0.54 K/mm3 0-0.8 N EOSINOPHIL # (test code = EO#) 0.06 K/mm3 0.0-0.5 N BASOPHIL # (test code = BA#) 0.03 K/mm3 0.0-0.2 N NUCLEATED RBC # (test code = NRBC#) 0.00 K/mm3 0.0-0.1 N MANUAL DIFF REQUIRED (test code = MDIFF) YES STAIN ACCEPTABILITY (test code = STN ACCEPTABLE) STAIN ACCEPTABLE TOTAL CELLS COUNTED (test code = TCC) 115 #CELLS SEGMENTED NEUTROPHILS (test code = SEG) 92.2 % 39-69 H BAND NEUTROPHIL (test code = BAND) 0 % 0-10 N LYMPHOCYTE (test code = LYMPH) 1.7 % 25-55 L REACTIVE LYMPH (test code = RELYMPH) 1.7 % MONOCYTE (test code = MON) 2.6 % 0-10 N EOSINOPHIL (test code = EOS) 1.8 % 0.0-5.0 N BASOPHIL (test code = BASO) 0 % 0-1.0 N METAMYELOCYTE (test code = META) 0 % 0-0 N MYELOCYTE (test code = MYELO) 0 % 0.0-0.0 N PROMYELOCYTE (test code = PROM) 0 % 0-0 N POIKILOCYTOSIS (test code = POIK) 3+ ANISOCYTOSIS (test code = ANISO) 1+ MACROCYTOSIS (test code = MACR) 1+ UZIEL CELLS (test code = UZIEL) 1+ NONE MORPHOLOGY COMMENT (test code = MOC) NORMAL PLATELET ESTIMATE (test code = PLTEST) DECREASED PLATELET MORPHOLOGY (test code = PLTMORPH) NORMAL IMMATURE FORMS (test code = IMMAT) 0 % 0-0 N CBC W/MANUAL [id number] 05:32:00* Test Item Value Reference Range Interpretation Comments WHITE BLOOD CELL (test code = WBC) 5.9 K/mm3 4.5-12.5 N RED BLOOD CELL (test code = RBC) 2.81 mill/mm3 4.0-5.8 L HEMOGLOBIN (test code = HGB) 8.6 gram/dL 13.0-17.5 L HEMATOCRIT (test code = HCT) 25.8 % 42.0-52.0 L MEAN CELL VOLUME (test code = MCV) 91.8 fL 80-98 N MEAN CELL HGB (test code = MCH) 30.6 picogram 27.0-33.0 N MEAN CELL HGB CONCETRATION (test code = MCHC) 33.3 gram/dL 33.0-36. 0 N RED CELL DISTRIBUTION WIDTH (test code = RDW) 15.8 % 11.6-16. 2 N RED CELL DISTRIBUTION WIDTH SD (test code = RDW-SD) 52.7 fL 37 .0-51.0 H PLATELET COUNT (test code = PLT) 72 K/mm3 150-450 L MEAN PLATELET VOLUME (test code = MPV) 11.2 fL 6.7-11.0 H IMMATURE GRANULOCYTE % (test code = IG%) 0.8 % 0.0-5.0 N NUCLEATED RBC % (test code = NRBC%) 0.0 % 0-0 N NEUTROPHIL # (test code = NT#) 4.80 K/mm3 1.8-7.7 N IMMATURE GRANULOCYTE # (test code = IG#) 0.05 x10 3/uL 0-0.03 H LYMPHOCYTE # (test code = LY#) 0.45 K/mm3 1.0-5.0 L MONOCYTE # (test code = MO#) 0.54 K/mm3 0-0.8 N EOSINOPHIL # (test code = EO#) 0.06 K/mm3 0.0-0.5 N BASOPHIL # (test code = BA#) 0.03 K/mm3 0.0-0.2 N NUCLEATED RBC # (test code = NRBC#) 0.00 K/mm3 0.0-0.1 N MANUAL DIFF REQUIRED (test code = MDIFF) YES STAIN ACCEPTABILITY (test code = STN ACCEPTABLE) TOTAL CELLS COUNTED (test code = TCC) #CELLS SEGMENTED NEUTROPHILS (test code = SEG) % 39-69 LYMPHOCYTE (test code = LYMPH) % 25-55 MONOCYTE (test code = MON) % 0-10 EOSINOPHIL (test code = EOS) % 0.0-5.0 CABOT RINGS (test code = CAB) MORPHOLOGY COMMENT (test code = MOC) PLATELET ESTIMATE (test code = PLTEST) PLATELET MORPHOLOGY (test code = PLTMORPH) CBC W/MANUAL [id number] 05:32:00* Test Item Value Reference Range Interpretation Comments WHITE BLOOD CELL (test code = WBC) 5.9 K/mm3 4.5-12.5 N RED BLOOD CELL (test code = RBC) 2.81 mill/mm3 4.0-5.8 L HEMOGLOBIN (test code = HGB) 8.6 gram/dL 13.0-17.5 L HEMATOCRIT (test code = HCT) 25.8 % 42.0-52.0 L MEAN CELL VOLUME (test code = MCV) 91.8 fL 80-98 N MEAN CELL HGB (test code = MCH) 30.6 picogram 27.0-33.0 N MEAN CELL HGB CONCETRATION (test code = MCHC) 33.3 gram/dL 33.0-36. 0 N RED CELL DISTRIBUTION WIDTH (test code = RDW) 15.8 % 11.6-16. 2 N RED CELL DISTRIBUTION WIDTH SD (test code = RDW-SD) 52.7 fL 37 .0-51.0 H PLATELET COUNT (test code = PLT) 72 K/mm3 150-450 L MEAN PLATELET VOLUME (test code = MPV) 11.2 fL 6.7-11.0 H IMMATURE GRANULOCYTE % (test code = IG%) 0.8 % 0.0-5.0 N NUCLEATED RBC % (test code = NRBC%) 0.0 % 0-0 N NEUTROPHIL # (test code = NT#) 4.80 K/mm3 1.8-7.7 N IMMATURE GRANULOCYTE # (test code = IG#) 0.05 x10 3/uL 0-0.03 H LYMPHOCYTE # (test code = LY#) 0.45 K/mm3 1.0-5.0 L MONOCYTE # (test code = MO#) 0.54 K/mm3 0-0.8 N EOSINOPHIL # (test code = EO#) 0.06 K/mm3 0.0-0.5 N BASOPHIL # (test code = BA#) 0.03 K/mm3 0.0-0.2 N NUCLEATED RBC # (test code = NRBC#) 0.00 K/mm3 0.0-0.1 N MANUAL DIFF REQUIRED (test code = MDIFF) YES STAIN ACCEPTABILITY (test code = STN ACCEPTABLE) TOTAL CELLS COUNTED (test code = TCC) #CELLS SEGMENTED NEUTROPHILS (test code = SEG) % 39-69 LYMPHOCYTE (test code = LYMPH) % 25-55 MONOCYTE (test code = MON) % 0-10 EOSINOPHIL (test code = EOS) % 0.0-5.0 CABOT RINGS (test code = CAB) MORPHOLOGY COMMENT (test code = MOC) PLATELET ESTIMATE (test code = PLTEST) PLATELET MORPHOLOGY (test code = PLTMORPH) CBC W/MANUAL [id number] 05:32:00* Test Item Value Reference Range Interpretation Comments WHITE BLOOD CELL (test code = WBC) 5.9 K/mm3 4.5-12.5 N RED BLOOD CELL (test code = RBC) 2.81 mill/mm3 4.0-5.8 L HEMOGLOBIN (test code = HGB) 8.6 gram/dL 13.0-17.5 L HEMATOCRIT (test code = HCT) 25.8 % 42.0-52.0 L MEAN CELL VOLUME (test code = MCV) 91.8 fL 80-98 N MEAN CELL HGB (test code = MCH) 30.6 picogram 27.0-33.0 N MEAN CELL HGB CONCETRATION (test code = MCHC) 33.3 gram/dL 33.0-36. 0 N RED CELL DISTRIBUTION WIDTH (test code = RDW) 15.8 % 11.6-16. 2 N RED CELL DISTRIBUTION WIDTH SD (test code = RDW-SD) 52.7 fL 37 .0-51.0 H PLATELET COUNT (test code = PLT) 72 K/mm3 150-450 L MEAN PLATELET VOLUME (test code = MPV) 11.2 fL 6.7-11.0 H IMMATURE GRANULOCYTE % (test code = IG%) 0.8 % 0.0-5.0 N NUCLEATED RBC % (test code = NRBC%) 0.0 % 0-0 N NEUTROPHIL # (test code = NT#) 4.80 K/mm3 1.8-7.7 N IMMATURE GRANULOCYTE # (test code = IG#) 0.05 x10 3/uL 0-0.03 H LYMPHOCYTE # (test code = LY#) 0.45 K/mm3 1.0-5.0 L MONOCYTE # (test code = MO#) 0.54 K/mm3 0-0.8 N EOSINOPHIL # (test code = EO#) 0.06 K/mm3 0.0-0.5 N BASOPHIL # (test code = BA#) 0.03 K/mm3 0.0-0.2 N NUCLEATED RBC # (test code = NRBC#) 0.00 K/mm3 0.0-0.1 N MANUAL DIFF REQUIRED (test code = MDIFF) YES STAIN ACCEPTABILITY (test code = STN ACCEPTABLE) TOTAL CELLS COUNTED (test code = TCC) #CELLS SEGMENTED NEUTROPHILS (test code = SEG) % 39-69 LYMPHOCYTE (test code = LYMPH) % 25-55 MONOCYTE (test code = MON) % 0-10 EOSINOPHIL (test code = EOS) % 0.0-5.0 MORPHOLOGY COMMENT (test code = MOC) PLATELET ESTIMATE (test code = PLTEST) PLATELET MORPHOLOGY (test code = PLTMORPH) CBC W/MANUAL [id number] 05:32:00* Test Item Value Reference Range Interpretation Comments WHITE BLOOD CELL (test code = WBC) 5.9 K/mm3 4.5-12.5 N RED BLOOD CELL (test code = RBC) 2.81 mill/mm3 4.0-5.8 L HEMOGLOBIN (test code = HGB) 8.6 gram/dL 13.0-17.5 L HEMATOCRIT (test code = HCT) 25.8 % 42.0-52.0 L MEAN CELL VOLUME (test code = MCV) 91.8 fL 80-98 N MEAN CELL HGB (test code = MCH) 30.6 picogram 27.0-33.0 N MEAN CELL HGB CONCETRATION (test code = MCHC) 33.3 gram/dL 33.0-36. 0 N RED CELL DISTRIBUTION WIDTH (test code = RDW) 15.8 % 11.6-16. 2 N RED CELL DISTRIBUTION WIDTH SD (test code = RDW-SD) 52.7 fL 37 .0-51.0 H PLATELET COUNT (test code = PLT) 72 K/mm3 150-450 L MEAN PLATELET VOLUME (test code = MPV) 11.2 fL 6.7-11.0 H IMMATURE GRANULOCYTE % (test code = IG%) 0.8 % 0.0-5.0 N NUCLEATED RBC % (test code = NRBC%) 0.0 % 0-0 N NEUTROPHIL # (test code = NT#) 4.80 K/mm3 1.8-7.7 N IMMATURE GRANULOCYTE # (test code = IG#) 0.05 x10 3/uL 0-0.03 H LYMPHOCYTE # (test code = LY#) 0.45 K/mm3 1.0-5.0 L MONOCYTE # (test code = MO#) 0.54 K/mm3 0-0.8 N EOSINOPHIL # (test code = EO#) 0.06 K/mm3 0.0-0.5 N BASOPHIL # (test code = BA#) 0.03 K/mm3 0.0-0.2 N NUCLEATED RBC # (test code = NRBC#) 0.00 K/mm3 0.0-0.1 N MANUAL DIFF REQUIRED (test code = MDIFF) YES STAIN ACCEPTABILITY (test code = STN ACCEPTABLE) TOTAL CELLS COUNTED (test code = TCC) #CELLS SEGMENTED NEUTROPHILS (test code = SEG) % 39-69 LYMPHOCYTE (test code = LYMPH) % 25-55 MONOCYTE (test code = MON) % 0-10 MORPHOLOGY COMMENT (test code = MOC) PLATELET ESTIMATE (test code = PLTEST) PLATELET MORPHOLOGY (test code = PLTMORPH) CBC W/MANUAL [id number] 05:32:00* Test Item Value Reference Range Interpretation Comments WHITE BLOOD CELL (test code = WBC) 5.9 K/mm3 4.5-12.5 N RED BLOOD CELL (test code = RBC) 2.81 mill/mm3 4.0-5.8 L HEMOGLOBIN (test code = HGB) 8.6 gram/dL 13.0-17.5 L HEMATOCRIT (test code = HCT) 25.8 % 42.0-52.0 L MEAN CELL VOLUME (test code = MCV) 91.8 fL 80-98 N MEAN CELL HGB (test code = MCH) 30.6 picogram 27.0-33.0 N MEAN CELL HGB CONCETRATION (test code = MCHC) 33.3 gram/dL 33.0-36. 0 N RED CELL DISTRIBUTION WIDTH (test code = RDW) 15.8 % 11.6-16. 2 N RED CELL DISTRIBUTION WIDTH SD (test code = RDW-SD) 52.7 fL 37 .0-51.0 H PLATELET COUNT (test code = PLT) 72 K/mm3 150-450 L MEAN PLATELET VOLUME (test code = MPV) 11.2 fL 6.7-11.0 H IMMATURE GRANULOCYTE % (test code = IG%) 0.8 % 0.0-5.0 N NUCLEATED RBC % (test code = NRBC%) 0.0 % 0-0 N NEUTROPHIL # (test code = NT#) 4.80 K/mm3 1.8-7.7 N IMMATURE GRANULOCYTE # (test code = IG#) 0.05 x10 3/uL 0-0.03 H LYMPHOCYTE # (test code = LY#) 0.45 K/mm3 1.0-5.0 L MONOCYTE # (test code = MO#) 0.54 K/mm3 0-0.8 N EOSINOPHIL # (test code = EO#) 0.06 K/mm3 0.0-0.5 N BASOPHIL # (test code = BA#) 0.03 K/mm3 0.0-0.2 N NUCLEATED RBC # (test code = NRBC#) 0.00 K/mm3 0.0-0.1 N MANUAL DIFF REQUIRED (test code = MDIFF) YES STAIN ACCEPTABILITY (test code = STN ACCEPTABLE) TOTAL CELLS COUNTED (test code = TCC) #CELLS SEGMENTED NEUTROPHILS (test code = SEG) % 39-69 LYMPHOCYTE (test code = LYMPH) % 25-55 MONOCYTE (test code = MON) % 0-10 EOSINOPHIL (test code = EOS) % 0.0-5.0 CABOT RINGS (test code = CAB) MORPHOLOGY COMMENT (test code = MOC) PLATELET ESTIMATE (test code = PLTEST) PLATELET MORPHOLOGY (test code = PLTMORPH) COMPREHENSIVE METABOLIC [id number] 05:28:00* Test Item Value Reference Range Interpretation Comments SODIUM (test code = NA) 146 mmol/L 136-145 H POTASSIUM (test code = K) 3.0 mmol/L 3.5-5.1 L CHLORIDE (test code = CL) 116.0 mmol/L 98-107 H CARBON DIOXIDE (test code = CO2) 22.0 mmol/L 21-32 N ANION GAP (test code = GAP) 11.0 10-20 N GLUCOSE (test code = GLU) 107 mg/dL 74-106 H BLOOD UREA NITROGEN (test code = BUN) 8 mg/dL 7-18 N GLOMERULAR FILTRATION RATE (test code = GFR) > 60 mL/min >=60 Estimated GFR by using Modified MDRD formula.Chronic kidney disease is defined as either kidney damageor GFR <60 mL/min/1.73 m2 for >3 months. CREATININE (test code = CREAT) 0.80 mg/dL 0.7-1.3 N BUN/CREATININE RATIO (test code = BUN/CREA) 10.1 10-20 N TOTAL PROTEIN (test code = PROT) 5.0 gram/dL 6.4-8.2 L ALBUMIN (test code = ALB) 2.0 g/dL 3.4-5.0 L GLOBULIN (test code = GLOB) 3.0 gram/dL 2.7-4.2 N ALBUMIN/GLOBULIN RATIO (test code = A/G) 0.7 0.75-1.50 L CALCIUM (test code = CA) 7.7 mg/dL 8.5-10.1 L BILIRUBIN TOTAL (test code = BILT) 0.50 mg/dL 0.0-1.0 N SGOT/AST (test code = AST) 13 IUnit/L 15-37 L SGPT/ALT (test code = ALT) 12 IUnit/L 12-78 N ALKALINE PHOSPHATASE TOTAL (test code = ALKP) 50 IUnit/L 45-117 N Note change in reference range due to change in reagent. COMPREHENSIVE METABOLIC [id number] 05:18:00* Test Item Value Reference Range Interpretation Comments SODIUM (test code = NA) 146 mmol/L 136-145 H POTASSIUM (test code = K) 3.0 mmol/L 3.5-5.1 L CHLORIDE (test code = CL) 116.0 mmol/L 98-107 H CARBON DIOXIDE (test code = CO2) mmol/L 21-32 ANION GAP (test code = GAP) 10-20 GLUCOSE (test code = GLU) mg/dL 74-106 BLOOD UREA NITROGEN (test code = BUN) mg/dL 7-18 GLOMERULAR FILTRATION RATE (test code = GFR) mL/min >=60 CREATININE (test code = CREAT) mg/dL 0.7-1.3 BUN/CREATININE RATIO (test code = BUN/CREA) 10-20 TOTAL PROTEIN (test code = PROT) gram/dL 6.4-8.2 ALBUMIN (test code = ALB) g/dL 3.4-5.0 GLOBULIN (test code = GLOB) gram/dL 2.7-4.2 ALBUMIN/GLOBULIN RATIO (test code = A/G) 0.75-1.50 CALCIUM (test code = CA) mg/dL 8.5-10.1 BILIRUBIN TOTAL (test code = BILT) mg/dL 0.0-1.0 SGOT/AST (test code = AST) IUnit/L 15-37 SGPT/ALT (test code = ALT) IUnit/L 12-78 ALKALINE PHOSPHATASE TOTAL (test code = ALKP) IUnit/L 45-117 URINALYSIS [id number] 19:30:00* Test Item Value Reference Range Interpretation Comments UA COLOR (test code = COLU) YELLOW YELLOW UA APPEARANCE (test code = APPU) CLEAR CLEAR UA GLUCOSE DIPSTICK (test code = DGLUU) NEGATIVE mg/dL NEGATIVE UA BILIRUBIN DIPSTICK (test code = BILU) NEGATIVE mg/dL NEGATIVE UA KETONE DIPSTICK (test code = KETU) NEGATIVE mg/dL NEGATIVE UA SPECIFIC GRAVITY (test code = SGU) 1.023 1.001-1.035 UA BLOOD DIPSTICK (test code = GURMEET) Negative mg/dL NEGATIVE UA PH DIPSTICK (test code = LEXI) 6.0 5.0-8.0 UA PROTEIN DIPSTICK (test code = PROU) 20 (Trace) mg/dL NEGATIVE A UA UROBILINIOGEN DIPSTICK (test code = URO) Normal mg/dL NEGATIVE UA NITRITE DIPSTICK (test code = NI) NEGATIVE NEGATIVE UA LEUKOCYTE ESTERASE W REFLEX (test code = LEUUR) NEGATIVE Sandip/uL NEGATIVE UA WBC (test code = WBCU) 0-5 per HPF 0-5 UA RBC (test code = RBCU) 0-2 #/HPF 0-5 UA EPITHELIAL CELLS (test code = EPIU) FEW per HPF FEW UA BACTERIA (test code = BACU) NONE SEEN #/HPF NONE UA MUCUS (test code = MUCU) FEW #/LPF FEW Urine Source? Clean CatchFE W/TOTAL IRON BINDING CAP.2018-12-30 10:09:00* Test Item Value Reference Range Interpretation Comments SERUM IRON (test code = IRON) 24 ug/dL 50-175 L TOTAL IRON BINDING CAPACITY (test code = TIBC) 153 mcg/dL 250-450 L IRON SATURATION (test code = FESAT) 15.69 % 13-45 N VITAMIN [id number] 10:09:00* Test Item Value Reference Range Interpretation Comments VITAMIN B12 (test code = VITB12) 4023 pg/mL 193-986 H FOLIC [id number] 10:09:00* Test Item Value Reference Range Interpretation Comments FOLIC ACID (test code = FOL) 17.0 ng/mL 3.10-17.50 N [id number] 10:09:00* Test Item Value Reference Range Interpretation Comments FERRITIN (test code = MARIA E) 129 ng/mL 8-388 N CBC W/AUTO [id number] 09:13:00* Test Item Value Reference Range Interpretation Comments WHITE BLOOD CELL (test code = WBC) 9.3 K/mm3 4.5-12.5 N RED BLOOD CELL (test code = RBC) 3.08 mill/mm3 4.0-5.8 L HEMOGLOBIN (test code = HGB) 9.4 gram/dL 13.0-17.5 L HEMATOCRIT (test code = HCT) 27.7 % 42.0-52.0 L MEAN CELL VOLUME (test code = MCV) 89.9 fL 80-98 N MEAN CELL HGB (test code = MCH) 30.5 picogram 27.0-33.0 N MEAN CELL HGB CONCETRATION (test code = MCHC) 33.9 gram/dL 33.0-36. 0 N RED CELL DISTRIBUTION WIDTH (test code = RDW) 15.8 % 11.6-16. 2 N RED CELL DISTRIBUTION WIDTH SD (test code = RDW-SD) 51.4 fL 37 .0-51.0 H PLATELET COUNT (test code = PLT) 92 K/mm3 150-450 L MEAN PLATELET VOLUME (test code = MPV) 11.6 fL 6.7-11.0 H NEUTROPHIL % (test code = NT%) 89.6 % 39.0-69.0 H IMMATURE GRANULOCYTE % (test code = IG%) 0.8 % 0.0-5.0 N LYMPHOCYTE % (test code = LY%) 5.5 % 25.0-55.0 L MONOCYTE % (test code = MO%) 3.6 % 0.0-10.0 N EOSINOPHIL % (test code = EO%) 0.3 % 0.0-5.0 N BASOPHIL % (test code = BA%) 0.2 % 0.0-1.0 N NUCLEATED RBC % (test code = NRBC%) 0.0 % 0-0 N NEUTROPHIL # (test code = NT#) 8.36 K/mm3 1.8-7.7 H IMMATURE GRANULOCYTE # (test code = IG#) 0.07 x10 3/uL 0-0.03 H LYMPHOCYTE # (test code = LY#) 0.51 K/mm3 1.0-5.0 L MONOCYTE # (test code = MO#) 0.34 K/mm3 0-0.8 N EOSINOPHIL # (test code = EO#) 0.03 K/mm3 0.0-0.5 N BASOPHIL # (test code = BA#) 0.02 K/mm3 0.0-0.2 N NUCLEATED RBC # (test code = NRBC#) 0.00 K/mm3 0.0-0.1 N MANUAL DIFF REQUIRED (test code = MDIFF) NO, ONLY SCAN NEEDED DIFFERENTIAL [id number] 09:13:00* Test Item Value Reference Range Interpretation Comments STAIN ACCEPTABILITY (test code = STN ACCEPTABLE) STAIN ACCEPTABLE HYPOCHROMIA (test code = HYPO) 1+ PLATELET ESTIMATE (test code = PLTEST) DECREASED PLATELET MORPHOLOGY (test code = PLTMORPH) NORMAL - XR CHEST 2 [id number] 09:08:00 FAX: Charan Mcneal MD [phone] [place]: St: ADM FAX: Tg [place] [phone] Name: JACK MANZANO [facility] : 1940 Age/S: 78/M [address] [facility] Unit #: [id number] Loc: [place] [address] Phys: Charan Ardon MD Acct: [id number] Dis Date: Status: ADM IN PHONE #: [phone] Exam Date: 12/30/2018 08 FAX #: [phone] Reason: PNMEUMONIA F/U EXAMS: CPT CODE: [id number] XR CHEST 2 V [id number] REASON FOR EXAM: PNMEUMONIA F/U Exam Order Date: 12/30/2018 5:00 AM Ordering M.DJenny: Charan Ardon MD PROCEDURE: - XR CHEST 2 V COMPARISON: Frontal chest x-ray 3 days earlier FINDINGS: There are patchy airspace opacities throughout the right lung and also in the left midlung. Compared to the prior examination the right lower lung and left lung base are better aerated however the opacities in the right upper lung has slightly worsened. Left lung is unchanged. Calcified granuloma is present in the left midlung. No pleural effusion or pneumothorax. Left subclavian dual-lead pacemaker is stable in position. Cardiomediastinal silhouette is normal in size. No acute musculoskeletal abnormality. IMPRESSION: Improved aeration of the right lower lung but worsening opacification of the right upper lung. There is also a patchy opacity in the left midlung. These opacities most likely represent a multifocal pneumonia. at 0908 Reported and signed by: Chiki Amos MD CC: Charan Ardon MD; Dr. Tg Florez Technologist: NIKOLAY GIL JR Trnscrd Date/Time/By: 12/30/2018 (0908) : By: [id number] PAGE 1 Signed Report CBC W/AUTO [id number] 08:43:00* Test Item Value Reference Range Interpretation Comments WHITE BLOOD CELL (test code = WBC) 9.3 K/mm3 4.5-12.5 N RED BLOOD CELL (test code = RBC) 3.08 mill/mm3 4.0-5.8 L HEMOGLOBIN (test code = HGB) 9.4 gram/dL 13.0-17.5 L HEMATOCRIT (test code = HCT) 27.7 % 42.0-52.0 L MEAN CELL VOLUME (test code = MCV) 89.9 fL 80-98 N MEAN CELL HGB (test code = MCH) 30.5 picogram 27.0-33.0 N MEAN CELL HGB CONCETRATION (test code = MCHC) 33.9 gram/dL 33.0-36. 0 N RED CELL DISTRIBUTION WIDTH (test code = RDW) 15.8 % 11.6-16. 2 N RED CELL DISTRIBUTION WIDTH SD (test code = RDW-SD) 51.4 fL 37 .0-51.0 H PLATELET COUNT (test code = PLT) 92 K/mm3 150-450 L MEAN PLATELET VOLUME (test code = MPV) 11.6 fL 6.7-11.0 H NEUTROPHIL % (test code = NT%) 89.6 % 39.0-69.0 H IMMATURE GRANULOCYTE % (test code = IG%) 0.8 % 0.0-5.0 N LYMPHOCYTE % (test code = LY%) 5.5 % 25.0-55.0 L MONOCYTE % (test code = MO%) 3.6 % 0.0-10.0 N EOSINOPHIL % (test code = EO%) 0.3 % 0.0-5.0 N BASOPHIL % (test code = BA%) 0.2 % 0.0-1.0 N NUCLEATED RBC % (test code = NRBC%) 0.0 % 0-0 N NEUTROPHIL # (test code = NT#) 8.36 K/mm3 1.8-7.7 H IMMATURE GRANULOCYTE # (test code = IG#) 0.07 x10 3/uL 0-0.03 H LYMPHOCYTE # (test code = LY#) 0.51 K/mm3 1.0-5.0 L MONOCYTE # (test code = MO#) 0.34 K/mm3 0-0.8 N EOSINOPHIL # (test code = EO#) 0.03 K/mm3 0.0-0.5 N BASOPHIL # (test code = BA#) 0.02 K/mm3 0.0-0.2 N NUCLEATED RBC # (test code = NRBC#) 0.00 K/mm3 0.0-0.1 N MANUAL DIFF REQUIRED (test code = MDIFF) NO, ONLY SCAN NEEDED DIFFERENTIAL [id number] 08:43:00* Test Item Value Reference Range Interpretation Comments STAIN ACCEPTABILITY (test code = STN ACCEPTABLE) CABOT RINGS (test code = CAB) MORPHOLOGY COMMENT (test code = MOC) PLATELET ESTIMATE (test code = PLTEST) PLATELET MORPHOLOGY (test code = PLTMORPH) CBC W/AUTO [id number] 08:43:00* Test Item Value Reference Range Interpretation Comments WHITE BLOOD CELL (test code = WBC) 9.3 K/mm3 4.5-12.5 N RED BLOOD CELL (test code = RBC) 3.08 mill/mm3 4.0-5.8 L HEMOGLOBIN (test code = HGB) 9.4 gram/dL 13.0-17.5 L HEMATOCRIT (test code = HCT) 27.7 % 42.0-52.0 L MEAN CELL VOLUME (test code = MCV) 89.9 fL 80-98 N MEAN CELL HGB (test code = MCH) 30.5 picogram 27.0-33.0 N MEAN CELL HGB CONCETRATION (test code = MCHC) 33.9 gram/dL 33.0-36. 0 N RED CELL DISTRIBUTION WIDTH (test code = RDW) 15.8 % 11.6-16. 2 N RED CELL DISTRIBUTION WIDTH SD (test code = RDW-SD) 51.4 fL 37 .0-51.0 H PLATELET COUNT (test code = PLT) 92 K/mm3 150-450 L MEAN PLATELET VOLUME (test code = MPV) 11.6 fL 6.7-11.0 H NEUTROPHIL % (test code = NT%) 89.6 % 39.0-69.0 H IMMATURE GRANULOCYTE % (test code = IG%) 0.8 % 0.0-5.0 N LYMPHOCYTE % (test code = LY%) 5.5 % 25.0-55.0 L MONOCYTE % (test code = MO%) 3.6 % 0.0-10.0 N EOSINOPHIL % (test code = EO%) 0.3 % 0.0-5.0 N BASOPHIL % (test code = BA%) 0.2 % 0.0-1.0 N NUCLEATED RBC % (test code = NRBC%) 0.0 % 0-0 N NEUTROPHIL # (test code = NT#) 8.36 K/mm3 1.8-7.7 H IMMATURE GRANULOCYTE # (test code = IG#) 0.07 x10 3/uL 0-0.03 H LYMPHOCYTE # (test code = LY#) 0.51 K/mm3 1.0-5.0 L MONOCYTE # (test code = MO#) 0.34 K/mm3 0-0.8 N EOSINOPHIL # (test code = EO#) 0.03 K/mm3 0.0-0.5 N BASOPHIL # (test code = BA#) 0.02 K/mm3 0.0-0.2 N NUCLEATED RBC # (test code = NRBC#) 0.00 K/mm3 0.0-0.1 N MANUAL DIFF REQUIRED (test code = MDIFF) NO, ONLY SCAN NEEDED DIFFERENTIAL [id number] 08:43:00* Test Item Value Reference Range Interpretation Comments STAIN ACCEPTABILITY (test code = STN ACCEPTABLE) CABOT RINGS (test code = CAB) MORPHOLOGY COMMENT (test code = MOC) PLATELET ESTIMATE (test code = PLTEST) PLATELET MORPHOLOGY (test code = PLTMORPH) CBC W/AUTO [id number] 08:43:00* Test Item Value Reference Range Interpretation Comments WHITE BLOOD CELL (test code = WBC) 9.3 K/mm3 4.5-12.5 N RED BLOOD CELL (test code = RBC) 3.08 mill/mm3 4.0-5.8 L HEMOGLOBIN (test code = HGB) 9.4 gram/dL 13.0-17.5 L HEMATOCRIT (test code = HCT) 27.7 % 42.0-52.0 L MEAN CELL VOLUME (test code = MCV) 89.9 fL 80-98 N MEAN CELL HGB (test code = MCH) 30.5 picogram 27.0-33.0 N MEAN CELL HGB CONCETRATION (test code = MCHC) 33.9 gram/dL 33.0-36. 0 N RED CELL DISTRIBUTION WIDTH (test code = RDW) 15.8 % 11.6-16. 2 N RED CELL DISTRIBUTION WIDTH SD (test code = RDW-SD) 51.4 fL 37 .0-51.0 H PLATELET COUNT (test code = PLT) 92 K/mm3 150-450 L MEAN PLATELET VOLUME (test code = MPV) 11.6 fL 6.7-11.0 H NEUTROPHIL % (test code = NT%) 89.6 % 39.0-69.0 H IMMATURE GRANULOCYTE % (test code = IG%) 0.8 % 0.0-5.0 N LYMPHOCYTE % (test code = LY%) 5.5 % 25.0-55.0 L MONOCYTE % (test code = MO%) 3.6 % 0.0-10.0 N EOSINOPHIL % (test code = EO%) 0.3 % 0.0-5.0 N BASOPHIL % (test code = BA%) 0.2 % 0.0-1.0 N NUCLEATED RBC % (test code = NRBC%) 0.0 % 0-0 N NEUTROPHIL # (test code = NT#) 8.36 K/mm3 1.8-7.7 H IMMATURE GRANULOCYTE # (test code = IG#) 0.07 x10 3/uL 0-0.03 H LYMPHOCYTE # (test code = LY#) 0.51 K/mm3 1.0-5.0 L MONOCYTE # (test code = MO#) 0.34 K/mm3 0-0.8 N EOSINOPHIL # (test code = EO#) 0.03 K/mm3 0.0-0.5 N BASOPHIL # (test code = BA#) 0.02 K/mm3 0.0-0.2 N NUCLEATED RBC # (test code = NRBC#) 0.00 K/mm3 0.0-0.1 N MANUAL DIFF REQUIRED (test code = MDIFF) NO, ONLY SCAN NEEDED DIFFERENTIAL [id number] 08:43:00* Test Item Value Reference Range Interpretation Comments STAIN ACCEPTABILITY (test code = STN ACCEPTABLE) MORPHOLOGY COMMENT (test code = MOC) PLATELET ESTIMATE (test code = PLTEST) PLATELET MORPHOLOGY (test code = PLTMORPH) CBC W/AUTO [id number] 08:43:00* Test Item Value Reference Range Interpretation Comments WHITE BLOOD CELL (test code = WBC) 9.3 K/mm3 4.5-12.5 N RED BLOOD CELL (test code = RBC) 3.08 mill/mm3 4.0-5.8 L HEMOGLOBIN (test code = HGB) 9.4 gram/dL 13.0-17.5 L HEMATOCRIT (test code = HCT) 27.7 % 42.0-52.0 L MEAN CELL VOLUME (test code = MCV) 89.9 fL 80-98 N MEAN CELL HGB (test code = MCH) 30.5 picogram 27.0-33.0 N MEAN CELL HGB CONCETRATION (test code = MCHC) 33.9 gram/dL 33.0-36. 0 N RED CELL DISTRIBUTION WIDTH (test code = RDW) 15.8 % 11.6-16. 2 N RED CELL DISTRIBUTION WIDTH SD (test code = RDW-SD) 51.4 fL 37 .0-51.0 H PLATELET COUNT (test code = PLT) 92 K/mm3 150-450 L MEAN PLATELET VOLUME (test code = MPV) 11.6 fL 6.7-11.0 H NEUTROPHIL % (test code = NT%) 89.6 % 39.0-69.0 H IMMATURE GRANULOCYTE % (test code = IG%) 0.8 % 0.0-5.0 N LYMPHOCYTE % (test code = LY%) 5.5 % 25.0-55.0 L MONOCYTE % (test code = MO%) 3.6 % 0.0-10.0 N EOSINOPHIL % (test code = EO%) 0.3 % 0.0-5.0 N BASOPHIL % (test code = BA%) 0.2 % 0.0-1.0 N NUCLEATED RBC % (test code = NRBC%) 0.0 % 0-0 N NEUTROPHIL # (test code = NT#) 8.36 K/mm3 1.8-7.7 H IMMATURE GRANULOCYTE # (test code = IG#) 0.07 x10 3/uL 0-0.03 H LYMPHOCYTE # (test code = LY#) 0.51 K/mm3 1.0-5.0 L MONOCYTE # (test code = MO#) 0.34 K/mm3 0-0.8 N EOSINOPHIL # (test code = EO#) 0.03 K/mm3 0.0-0.5 N BASOPHIL # (test code = BA#) 0.02 K/mm3 0.0-0.2 N NUCLEATED RBC # (test code = NRBC#) 0.00 K/mm3 0.0-0.1 N MANUAL DIFF REQUIRED (test code = MDIFF) NO, ONLY SCAN NEEDED DIFFERENTIAL [id number] 08:43:00* Test Item Value Reference Range Interpretation Comments STAIN ACCEPTABILITY (test code = STN ACCEPTABLE) CABOT RINGS (test code = CAB) MORPHOLOGY COMMENT (test code = MOC) PLATELET ESTIMATE (test code = PLTEST) PLATELET MORPHOLOGY (test code = PLTMORPH) BASIC METABOLIC [id number] 08:21:00* Test Item Value Reference Range Interpretation Comments SODIUM (test code = NA) 147 mmol/L 136-145 H POTASSIUM (test code = K) 3.3 mmol/L 3.5-5.1 L CHLORIDE (test code = CL) 116.0 mmol/L 98-107 H CARBON DIOXIDE (test code = CO2) 22.0 mmol/L 21-32 N ANION GAP (test code = GAP) 12.3 10-20 N GLUCOSE (test code = GLU) 109 mg/dL 74-106 H BLOOD UREA NITROGEN (test code = BUN) 10 mg/dL 7-18 N GLOMERULAR FILTRATION RATE (test code = GFR) > 60 mL/min >=60 Estimated GFR by using Modified MDRD formula.Chronic kidney disease is defined as either kidney damageor GFR <60 mL/min/1.73 m2 for >3 months. CREATININE (test code = CREAT) 0.80 mg/dL 0.7-1.3 N BUN/CREATININE RATIO (test code = BUN/CREA) 13.2 10-20 N CALCIUM (test code = CA) 7.7 mg/dL 8.5-10.1 L [id number] 08:21:00* Test Item Value Reference Range Interpretation Comments MAGNESIUM (test code = MAG) 1.9 mg/dL 1.8-2.4 N [id number] 10:52:00* Test Item Value Reference Range Interpretation Comments AMMONIA (test code = AMM) 14 umol/L 11-32 N LACTIC [id number] 05:53:00* Test Item Value Reference Range Interpretation Comments LACTIC ACID (test code = LACT) 1.5 mmol/L 0.4-1.9 N CBC W/MANUAL [id number] 03:52:00* Test Item Value Reference Range Interpretation Comments WHITE BLOOD CELL (test code = WBC) 14.2 K/mm3 4.5-12.5 H RED BLOOD CELL (test code = RBC) 3.22 mill/mm3 4.0-5.8 L HEMOGLOBIN (test code = HGB) 9.9 gram/dL 13.0-17.5 L HEMATOCRIT (test code = HCT) 29.2 % 42.0-52.0 L MEAN CELL VOLUME (test code = MCV) 90.7 fL 80-98 N MEAN CELL HGB (test code = MCH) 30.7 picogram 27.0-33.0 N MEAN CELL HGB CONCETRATION (test code = MCHC) 33.9 gram/dL 33.0-36. 0 N RED CELL DISTRIBUTION WIDTH (test code = RDW) 15.6 % 11.6-16. 2 N RED CELL DISTRIBUTION WIDTH SD (test code = RDW-SD) 52.1 fL 37 .0-51.0 H PLATELET COUNT (test code = PLT) 86 K/mm3 150-450 L MEAN PLATELET VOLUME (test code = MPV) 11.0 fL 6.7-11.0 N IMMATURE GRANULOCYTE % (test code = IG%) 3.9 % 0.0-5.0 N NUCLEATED RBC % (test code = NRBC%) 0.0 % 0-0 N NEUTROPHIL # (test code = NT#) 12.40 K/mm3 1.8-7.7 H IMMATURE GRANULOCYTE # (test code = IG#) 0.55 x10 3/uL 0-0.03 H LYMPHOCYTE # (test code = LY#) 0.72 K/mm3 1.0-5.0 L MONOCYTE # (test code = MO#) 0.50 K/mm3 0-0.8 N EOSINOPHIL # (test code = EO#) 0.02 K/mm3 0.0-0.5 N BASOPHIL # (test code = BA#) 0.03 K/mm3 0.0-0.2 N NUCLEATED RBC # (test code = NRBC#) 0.00 K/mm3 0.0-0.1 N MANUAL DIFF REQUIRED (test code = MDIFF) YES STAIN ACCEPTABILITY (test code = STN ACCEPTABLE) STAIN ACCEPTABLE TOTAL CELLS COUNTED (test code = TCC) 115 #CELLS SEGMENTED NEUTROPHILS (test code = SEG) 79.1 % 39-69 H BAND NEUTROPHIL (test code = BAND) 7.8 % 0-10 N LYMPHOCYTE (test code = LYMPH) 10.4 % 25-55 L REACTIVE LYMPH (test code = RELYMPH) 0 % MONOCYTE (test code = MON) 1.8 % 0-10 N EOSINOPHIL (test code = EOS) 0 % 0.0-5.0 N BASOPHIL (test code = BASO) 0 % 0-1.0 N METAMYELOCYTE (test code = META) 0.9 % 0-0 H MYELOCYTE (test code = MYELO) 0 % 0.0-0.0 N PROMYELOCYTE (test code = PROM) 0 % 0-0 N POIKILOCYTOSIS (test code = POIK) 2+ ANISOCYTOSIS (test code = ANISO) 1+ MICROCYTOSIS (test code = MICR) 1+ CRENATED CELLS (test code = CREN) 2+ PLATELET ESTIMATE (test code = PLTEST) DECREASED PLATELET MORPHOLOGY (test code = PLTMORPH) NORMAL IMMATURE FORMS (test code = IMMAT) 0 % 0-0 N CPK-MB [id number] 03:18:00* Test Item Value Reference Range Interpretation Comments CREATINE KINASE (CK) (test code = CK) 119 IUnit/L 26-208 N CKMB (test code = CKMBT) 1.9 ng/mL 0-6.0 N RELATIVE % INDEX (test code = REL%) 1.60 % 0.00-2.50 N "If the total CK is elevated, the CKMB Fraction must beinterpreted as a Relative % Index, Normal is less than 2.5%"NOTE: Relative % Index is not valid with a normal total CK. [facility] 12/29/18 [id number] 03:18:00* Test Item Value Reference Range Interpretation Comments TROPONIN-I (test code = TROPI) 0.145 ng/mL 0-0.045 HH RESULT VERIFIED BY REPEAT ANALYSIS [facility] 12/29/18 [id number] METABOLIC [id number] 03:17:00* Test Item Value Reference Range Interpretation Comments SODIUM (test code = NA) 149 mmol/L 136-145 H RESU LT VERIFIED BY REPEAT ANALYSIS POTASSIUM (test code = K) 3.3 mmol/L 3.5-5.1 L CHLORIDE (test code = CL) 118.0 mmol/L 98-107 H CARBON DIOXIDE (test code = CO2) 20.0 mmol/L 21-32 L ANION GAP (test code = GAP) 14.3 10-20 N GLUCOSE (test code = GLU) 122 mg/dL 74-106 H BLOOD UREA NITROGEN (test code = BUN) 17 mg/dL 7-18 N GLOMERULAR FILTRATION RATE (test code = GFR) > 60 mL/min >=60 Estimated GFR by using Modified MDRD formula.Chronic kidney disease is defined as either kidney damageor GFR <60 mL/min/1.73 m2 for >3 months. CREATININE (test code = CREAT) 0.90 mg/dL 0.7-1.3 N BUN/CREATININE RATIO (test code = BUN/CREA) 18.1 10-20 N TOTAL PROTEIN (test code = PROT) 4.7 gram/dL 6.4-8.2 L ALBUMIN (test code = ALB) 2.4 g/dL 3.4-5.0 L GLOBULIN (test code = GLOB) 2.3 gram/dL 2.7-4.2 L ALBUMIN/GLOBULIN RATIO (test code = A/G) 1.0 0.75-1.50 N CALCIUM (test code = CA) 7.5 mg/dL 8.5-10.1 L BILIRUBIN TOTAL (test code = BILT) 0.50 mg/dL 0.0-1.0 N SGOT/AST (test code = AST) 30 IUnit/L 15-37 N SGPT/ALT (test code = ALT) 19 IUnit/L 12-78 N ALKALINE PHOSPHATASE TOTAL (test code = ALKP) 69 IUnit/L 45-117 N Note change in reference range due to change in reagent. CBC W/MANUAL [id number] 02:45:00* Test Item Value Reference Range Interpretation Comments WHITE BLOOD CELL (test code = WBC) 14.2 K/mm3 4.5-12.5 H RED BLOOD CELL (test code = RBC) 3.22 mill/mm3 4.0-5.8 L HEMOGLOBIN (test code = HGB) 9.9 gram/dL 13.0-17.5 L HEMATOCRIT (test code = HCT) 29.2 % 42.0-52.0 L MEAN CELL VOLUME (test code = MCV) 90.7 fL 80-98 N MEAN CELL HGB (test code = MCH) 30.7 picogram 27.0-33.0 N MEAN CELL HGB CONCETRATION (test code = MCHC) 33.9 gram/dL 33.0-36. 0 N RED CELL DISTRIBUTION WIDTH (test code = RDW) 15.6 % 11.6-16. 2 N RED CELL DISTRIBUTION WIDTH SD (test code = RDW-SD) 52.1 fL 37 .0-51.0 H PLATELET COUNT (test code = PLT) 86 K/mm3 150-450 L MEAN PLATELET VOLUME (test code = MPV) 11.0 fL 6.7-11.0 N IMMATURE GRANULOCYTE % (test code = IG%) 3.9 % 0.0-5.0 N NUCLEATED RBC % (test code = NRBC%) 0.0 % 0-0 N NEUTROPHIL # (test code = NT#) 12.40 K/mm3 1.8-7.7 H IMMATURE GRANULOCYTE # (test code = IG#) 0.55 x10 3/uL 0-0.03 H LYMPHOCYTE # (test code = LY#) 0.72 K/mm3 1.0-5.0 L MONOCYTE # (test code = MO#) 0.50 K/mm3 0-0.8 N EOSINOPHIL # (test code = EO#) 0.02 K/mm3 0.0-0.5 N BASOPHIL # (test code = BA#) 0.03 K/mm3 0.0-0.2 N NUCLEATED RBC # (test code = NRBC#) 0.00 K/mm3 0.0-0.1 N MANUAL DIFF REQUIRED (test code = MDIFF) YES STAIN ACCEPTABILITY (test code = STN ACCEPTABLE) TOTAL CELLS COUNTED (test code = TCC) #CELLS SEGMENTED NEUTROPHILS (test code = SEG) % 39-69 LYMPHOCYTE (test code = LYMPH) % 25-55 MONOCYTE (test code = MON) % 0-10 MORPHOLOGY COMMENT (test code = MOC) PLATELET ESTIMATE (test code = PLTEST) PLATELET MORPHOLOGY (test code = PLTMORPH) CBC W/MANUAL [id number] 02:43:00* Test Item Value Reference Range Interpretation Comments WHITE BLOOD CELL (test code = WBC) 14.2 K/mm3 4.5-12.5 H RED BLOOD CELL (test code = RBC) 3.22 mill/mm3 4.0-5.8 L HEMOGLOBIN (test code = HGB) 9.9 gram/dL 13.0-17.5 L HEMATOCRIT (test code = HCT) 29.2 % 42.0-52.0 L MEAN CELL VOLUME (test code = MCV) 90.7 fL 80-98 N MEAN CELL HGB (test code = MCH) 30.7 picogram 27.0-33.0 N MEAN CELL HGB CONCETRATION (test code = MCHC) 33.9 gram/dL 33.0-36. 0 N RED CELL DISTRIBUTION WIDTH (test code = RDW) 15.6 % 11.6-16. 2 N RED CELL DISTRIBUTION WIDTH SD (test code = RDW-SD) 52.1 fL 37 .0-51.0 H PLATELET COUNT (test code = PLT) 86 K/mm3 150-450 L MEAN PLATELET VOLUME (test code = MPV) 11.0 fL 6.7-11.0 N IMMATURE GRANULOCYTE % (test code = IG%) 3.9 % 0.0-5.0 N NUCLEATED RBC % (test code = NRBC%) 0.0 % 0-0 N NEUTROPHIL # (test code = NT#) 12.40 K/mm3 1.8-7.7 H IMMATURE GRANULOCYTE # (test code = IG#) 0.55 x10 3/uL 0-0.03 H LYMPHOCYTE # (test code = LY#) 0.72 K/mm3 1.0-5.0 L MONOCYTE # (test code = MO#) 0.50 K/mm3 0-0.8 N EOSINOPHIL # (test code = EO#) 0.02 K/mm3 0.0-0.5 N BASOPHIL # (test code = BA#) 0.03 K/mm3 0.0-0.2 N NUCLEATED RBC # (test code = NRBC#) 0.00 K/mm3 0.0-0.1 N MANUAL DIFF REQUIRED (test code = MDIFF) YES STAIN ACCEPTABILITY (test code = STN ACCEPTABLE) TOTAL CELLS COUNTED (test code = TCC) #CELLS SEGMENTED NEUTROPHILS (test code = SEG) % 39-69 LYMPHOCYTE (test code = LYMPH) % 25-55 MONOCYTE (test code = MON) % 0-10 EOSINOPHIL (test code = EOS) % 0.0-5.0 CABOT RINGS (test code = CAB) MORPHOLOGY COMMENT (test code = MOC) PLATELET ESTIMATE (test code = PLTEST) PLATELET MORPHOLOGY (test code = PLTMORPH) CBC W/MANUAL [id number] 02:43:00* Test Item Value Reference Range Interpretation Comments WHITE BLOOD CELL (test code = WBC) 14.2 K/mm3 4.5-12.5 H RED BLOOD CELL (test code = RBC) 3.22 mill/mm3 4.0-5.8 L HEMOGLOBIN (test code = HGB) 9.9 gram/dL 13.0-17.5 L HEMATOCRIT (test code = HCT) 29.2 % 42.0-52.0 L MEAN CELL VOLUME (test code = MCV) 90.7 fL 80-98 N MEAN CELL HGB (test code = MCH) 30.7 picogram 27.0-33.0 N MEAN CELL HGB CONCETRATION (test code = MCHC) 33.9 gram/dL 33.0-36. 0 N RED CELL DISTRIBUTION WIDTH (test code = RDW) 15.6 % 11.6-16. 2 N RED CELL DISTRIBUTION WIDTH SD (test code = RDW-SD) 52.1 fL 37 .0-51.0 H PLATELET COUNT (test code = PLT) 86 K/mm3 150-450 L MEAN PLATELET VOLUME (test code = MPV) 11.0 fL 6.7-11.0 N IMMATURE GRANULOCYTE % (test code = IG%) 3.9 % 0.0-5.0 N NUCLEATED RBC % (test code = NRBC%) 0.0 % 0-0 N NEUTROPHIL # (test code = NT#) 12.40 K/mm3 1.8-7.7 H IMMATURE GRANULOCYTE # (test code = IG#) 0.55 x10 3/uL 0-0.03 H LYMPHOCYTE # (test code = LY#) 0.72 K/mm3 1.0-5.0 L MONOCYTE # (test code = MO#) 0.50 K/mm3 0-0.8 N EOSINOPHIL # (test code = EO#) 0.02 K/mm3 0.0-0.5 N BASOPHIL # (test code = BA#) 0.03 K/mm3 0.0-0.2 N NUCLEATED RBC # (test code = NRBC#) 0.00 K/mm3 0.0-0.1 N MANUAL DIFF REQUIRED (test code = MDIFF) YES STAIN ACCEPTABILITY (test code = STN ACCEPTABLE) TOTAL CELLS COUNTED (test code = TCC) #CELLS SEGMENTED NEUTROPHILS (test code = SEG) % 39-69 LYMPHOCYTE (test code = LYMPH) % 25-55 MONOCYTE (test code = MON) % 0-10 EOSINOPHIL (test code = EOS) % 0.0-5.0 CABOT RINGS (test code = CAB) MORPHOLOGY COMMENT (test code = MOC) PLATELET ESTIMATE (test code = PLTEST) PLATELET MORPHOLOGY (test code = PLTMORPH) CBC W/MANUAL [id number] 02:43:00* Test Item Value Reference Range Interpretation Comments WHITE BLOOD CELL (test code = WBC) 14.2 K/mm3 4.5-12.5 H RED BLOOD CELL (test code = RBC) 3.22 mill/mm3 4.0-5.8 L HEMOGLOBIN (test code = HGB) 9.9 gram/dL 13.0-17.5 L HEMATOCRIT (test code = HCT) 29.2 % 42.0-52.0 L MEAN CELL VOLUME (test code = MCV) 90.7 fL 80-98 N MEAN CELL HGB (test code = MCH) 30.7 picogram 27.0-33.0 N MEAN CELL HGB CONCETRATION (test code = MCHC) 33.9 gram/dL 33.0-36. 0 N RED CELL DISTRIBUTION WIDTH (test code = RDW) 15.6 % 11.6-16. 2 N RED CELL DISTRIBUTION WIDTH SD (test code = RDW-SD) 52.1 fL 37 .0-51.0 H PLATELET COUNT (test code = PLT) 86 K/mm3 150-450 L MEAN PLATELET VOLUME (test code = MPV) 11.0 fL 6.7-11.0 N IMMATURE GRANULOCYTE % (test code = IG%) 3.9 % 0.0-5.0 N NUCLEATED RBC % (test code = NRBC%) 0.0 % 0-0 N NEUTROPHIL # (test code = NT#) 12.40 K/mm3 1.8-7.7 H IMMATURE GRANULOCYTE # (test code = IG#) 0.55 x10 3/uL 0-0.03 H LYMPHOCYTE # (test code = LY#) 0.72 K/mm3 1.0-5.0 L MONOCYTE # (test code = MO#) 0.50 K/mm3 0-0.8 N EOSINOPHIL # (test code = EO#) 0.02 K/mm3 0.0-0.5 N BASOPHIL # (test code = BA#) 0.03 K/mm3 0.0-0.2 N NUCLEATED RBC # (test code = NRBC#) 0.00 K/mm3 0.0-0.1 N MANUAL DIFF REQUIRED (test code = MDIFF) YES STAIN ACCEPTABILITY (test code = STN ACCEPTABLE) TOTAL CELLS COUNTED (test code = TCC) #CELLS SEGMENTED NEUTROPHILS (test code = SEG) % 39-69 LYMPHOCYTE (test code = LYMPH) % 25-55 MONOCYTE (test code = MON) % 0-10 EOSINOPHIL (test code = EOS) % 0.0-5.0 MORPHOLOGY COMMENT (test code = MOC) PLATELET ESTIMATE (test code = PLTEST) PLATELET MORPHOLOGY (test code = PLTMORPH) CBC W/MANUAL [id number] 02:43:00* Test Item Value Reference Range Interpretation Comments WHITE BLOOD CELL (test code = WBC) 14.2 K/mm3 4.5-12.5 H RED BLOOD CELL (test code = RBC) 3.22 mill/mm3 4.0-5.8 L HEMOGLOBIN (test code = HGB) 9.9 gram/dL 13.0-17.5 L HEMATOCRIT (test code = HCT) 29.2 % 42.0-52.0 L MEAN CELL VOLUME (test code = MCV) 90.7 fL 80-98 N MEAN CELL HGB (test code = MCH) 30.7 picogram 27.0-33.0 N MEAN CELL HGB CONCETRATION (test code = MCHC) 33.9 gram/dL 33.0-36. 0 N RED CELL DISTRIBUTION WIDTH (test code = RDW) 15.6 % 11.6-16. 2 N RED CELL DISTRIBUTION WIDTH SD (test code = RDW-SD) 52.1 fL 37 .0-51.0 H PLATELET COUNT (test code = PLT) 86 K/mm3 150-450 L MEAN PLATELET VOLUME (test code = MPV) 11.0 fL 6.7-11.0 N IMMATURE GRANULOCYTE % (test code = IG%) 3.9 % 0.0-5.0 N NUCLEATED RBC % (test code = NRBC%) 0.0 % 0-0 N NEUTROPHIL # (test code = NT#) 12.40 K/mm3 1.8-7.7 H IMMATURE GRANULOCYTE # (test code = IG#) 0.55 x10 3/uL 0-0.03 H LYMPHOCYTE # (test code = LY#) 0.72 K/mm3 1.0-5.0 L MONOCYTE # (test code = MO#) 0.50 K/mm3 0-0.8 N EOSINOPHIL # (test code = EO#) 0.02 K/mm3 0.0-0.5 N BASOPHIL # (test code = BA#) 0.03 K/mm3 0.0-0.2 N NUCLEATED RBC # (test code = NRBC#) 0.00 K/mm3 0.0-0.1 N MANUAL DIFF REQUIRED (test code = MDIFF) YES STAIN ACCEPTABILITY (test code = STN ACCEPTABLE) TOTAL CELLS COUNTED (test code = TCC) #CELLS SEGMENTED NEUTROPHILS (test code = SEG) % 39-69 LYMPHOCYTE (test code = LYMPH) % 25-55 MONOCYTE (test code = MON) % 0-10 EOSINOPHIL (test code = EOS) % 0.0-5.0 CABOT RINGS (test code = CAB) MORPHOLOGY COMMENT (test code = MOC) PLATELET ESTIMATE (test code = PLTEST) PLATELET MORPHOLOGY (test code = PLTMORPH) CPK-MB [id number] 17:00:00* Test Item Value Reference Range Interpretation Comments CREATINE KINASE (CK) (test code = CK) 192 IUnit/L 26-208 N CKMB (test code = CKMBT) 2.8 ng/mL 0-6.0 N RELATIVE % INDEX (test code = REL%) 1.46 % 0.00-2.50 N "If the total CK is elevated, the CKMB Fraction must beinterpreted as a Relative % Index, Normal is less than 2.5%"NOTE: Relative % Index is not valid with a normal total CK. [id number] 17:00:00* Test Item Value Reference Range Interpretation Comments TROPONIN-I (test code = TROPI) 0.123 ng/mL 0-0.045 HH Results called to [id number] by [email or web address] 12/28/18 1700Critical results verified and read back by Nurse? Y CBC W/MANUAL [id number] 13:34:00* Test Item Value Reference Range Interpretation Comments WHITE BLOOD CELL (test code = WBC) 14.5 K/mm3 4.5-12.5 H RED BLOOD CELL (test code = RBC) 3.28 mill/mm3 4.0-5.8 L HEMOGLOBIN (test code = HGB) 10.2 gram/dL 13.0-17.5 L HEMATOCRIT (test code = HCT) 30.1 % 42.0-52.0 L MEAN CELL VOLUME (test code = MCV) 91.8 fL 80-98 N MEAN CELL HGB (test code = MCH) 31.1 picogram 27.0-33.0 N MEAN CELL HGB CONCETRATION (test code = MCHC) 33.9 gram/dL 33.0-36. 0 N RED CELL DISTRIBUTION WIDTH (test code = RDW) 15.7 % 11.6-16. 2 N RED CELL DISTRIBUTION WIDTH SD (test code = RDW-SD) 52.9 fL 37 .0-51.0 H PLATELET COUNT (test code = PLT) 71 K/mm3 150-450 L RESULT VERIFIED BY REPEAT ANALYSIS MEAN PLATELET VOLUME (test code = MPV) 10.6 fL 6.7-11.0 N IMMATURE GRANULOCYTE % (test code = IG%) 7.5 % 0.0-5.0 H "The appearance of immature granulocytes (myelocytes,pro-myelocytes, meta-myelocytes) in the peripheral blood ofnon- individuals can indicate a response toinfection, inflammation, or other stimulus to the bonemarrow" NUCLEATED RBC % (test code = NRBC%) 0.0 % 0-0 N NEUTROPHIL # (test code = NT#) 12.31 K/mm3 1.8-7.7 H IMMATURE GRANULOCYTE # (test code = IG#) 1.09 x10 3/uL 0-0.03 H LYMPHOCYTE # (test code = LY#) 0.47 K/mm3 1.0-5.0 L MONOCYTE # (test code = MO#) 0.60 K/mm3 0-0.8 N EOSINOPHIL # (test code = EO#) 0.02 K/mm3 0.0-0.5 N BASOPHIL # (test code = BA#) 0.05 K/mm3 0.0-0.2 N NUCLEATED RBC # (test code = NRBC#) 0.00 K/mm3 0.0-0.1 N MANUAL DIFF REQUIRED (test code = MDIFF) YES STAIN ACCEPTABILITY (test code = STN ACCEPTABLE) STAIN ACCEPTABLE TOTAL CELLS COUNTED (test code = TCC) 115 #CELLS SEGMENTED NEUTROPHILS (test code = SEG) 82.6 % 39-69 H BAND NEUTROPHIL (test code = BAND) 13.1 % 0-10 H LYMPHOCYTE (test code = LYMPH) 0 % 25-55 L REACTIVE LYMPH (test code = RELYMPH) 0 % MONOCYTE (test code = MON) 2.6 % 0-10 N EOSINOPHIL (test code = EOS) 0 % 0.0-5.0 N BASOPHIL (test code = BASO) 0 % 0-1.0 N METAMYELOCYTE (test code = META) 1.7 % 0-0 H MYELOCYTE (test code = MYELO) 0 % 0.0-0.0 N PROMYELOCYTE (test code = PROM) 0 % 0-0 N POLYCHROMASIA (test code = POLC) 1+ HYPOCHROMIA (test code = HYPO) 1+ POIKILOCYTOSIS (test code = POIK) 1+ ANISOCYTOSIS (test code = ANISO) 1+ ELLIPTOCYTES (test code = ELL) 1+ PLATELET ESTIMATE (test code = PLTEST) DECREASED PLATELET MORPHOLOGY (test code = PLTMORPH) NORMAL IMMATURE FORMS (test code = IMMAT) 0 % 0-0 N [facility] 12/28/18 [id number] W/MANUAL [id number] 11:14:00* Test Item Value Reference Range Interpretation Comments WHITE BLOOD CELL (test code = WBC) 14.5 K/mm3 4.5-12.5 H RED BLOOD CELL (test code = RBC) 3.28 mill/mm3 4.0-5.8 L HEMOGLOBIN (test code = HGB) 10.2 gram/dL 13.0-17.5 L HEMATOCRIT (test code = HCT) 30.1 % 42.0-52.0 L MEAN CELL VOLUME (test code = MCV) 91.8 fL 80-98 N MEAN CELL HGB (test code = MCH) 31.1 picogram 27.0-33.0 N MEAN CELL HGB CONCETRATION (test code = MCHC) 33.9 gram/dL 33.0-36. 0 N RED CELL DISTRIBUTION WIDTH (test code = RDW) 15.7 % 11.6-16. 2 N RED CELL DISTRIBUTION WIDTH SD (test code = RDW-SD) 52.9 fL 37 .0-51.0 H PLATELET COUNT (test code = PLT) 71 K/mm3 150-450 L RESULT VERIFIED BY REPEAT ANALYSIS MEAN PLATELET VOLUME (test code = MPV) 10.6 fL 6.7-11.0 N IMMATURE GRANULOCYTE % (test code = IG%) 7.5 % 0.0-5.0 H "The appearance of immature granulocytes (myelocytes,pro-myelocytes, meta-myelocytes) in the peripheral blood ofnon- individuals can indicate a response toinfection, inflammation, or other stimulus to the bonemarrow" NUCLEATED RBC % (test code = NRBC%) 0.0 % 0-0 N NEUTROPHIL # (test code = NT#) 12.31 K/mm3 1.8-7.7 H IMMATURE GRANULOCYTE # (test code = IG#) 1.09 x10 3/uL 0-0.03 H LYMPHOCYTE # (test code = LY#) 0.47 K/mm3 1.0-5.0 L MONOCYTE # (test code = MO#) 0.60 K/mm3 0-0.8 N EOSINOPHIL # (test code = EO#) 0.02 K/mm3 0.0-0.5 N BASOPHIL # (test code = BA#) 0.05 K/mm3 0.0-0.2 N NUCLEATED RBC # (test code = NRBC#) 0.00 K/mm3 0.0-0.1 N MANUAL DIFF REQUIRED (test code = MDIFF) YES STAIN ACCEPTABILITY (test code = STN ACCEPTABLE) TOTAL CELLS COUNTED (test code = TCC) #CELLS SEGMENTED NEUTROPHILS (test code = SEG) % 39-69 LYMPHOCYTE (test code = LYMPH) % 25-55 MONOCYTE (test code = MON) % 0-10 EOSINOPHIL (test code = EOS) % 0.0-5.0 CABOT RINGS (test code = CAB) MORPHOLOGY COMMENT (test code = MOC) PLATELET ESTIMATE (test code = PLTEST) PLATELET MORPHOLOGY (test code = PLTMORPH) [facility] 12/28/18 0324CBC W/MANUAL [id number] 11:14:00* Test Item Value Reference Range Interpretation Comments WHITE BLOOD CELL (test code = WBC) 14.5 K/mm3 4.5-12.5 H RED BLOOD CELL (test code = RBC) 3.28 mill/mm3 4.0-5.8 L HEMOGLOBIN (test code = HGB) 10.2 gram/dL 13.0-17.5 L HEMATOCRIT (test code = HCT) 30.1 % 42.0-52.0 L MEAN CELL VOLUME (test code = MCV) 91.8 fL 80-98 N MEAN CELL HGB (test code = MCH) 31.1 picogram 27.0-33.0 N MEAN CELL HGB CONCETRATION (test code = MCHC) 33.9 gram/dL 33.0-36. 0 N RED CELL DISTRIBUTION WIDTH (test code = RDW) 15.7 % 11.6-16. 2 N RED CELL DISTRIBUTION WIDTH SD (test code = RDW-SD) 52.9 fL 37 .0-51.0 H PLATELET COUNT (test code = PLT) 71 K/mm3 150-450 L RESULT VERIFIED BY REPEAT ANALYSIS MEAN PLATELET VOLUME (test code = MPV) 10.6 fL 6.7-11.0 N IMMATURE GRANULOCYTE % (test code = IG%) 7.5 % 0.0-5.0 H "The appearance of immature granulocytes (myelocytes,pro-myelocytes, meta-myelocytes) in the peripheral blood ofnon- individuals can indicate a response toinfection, inflammation, or other stimulus to the bonemarrow" NUCLEATED RBC % (test code = NRBC%) 0.0 % 0-0 N NEUTROPHIL # (test code = NT#) 12.31 K/mm3 1.8-7.7 H IMMATURE GRANULOCYTE # (test code = IG#) 1.09 x10 3/uL 0-0.03 H LYMPHOCYTE # (test code = LY#) 0.47 K/mm3 1.0-5.0 L MONOCYTE # (test code = MO#) 0.60 K/mm3 0-0.8 N EOSINOPHIL # (test code = EO#) 0.02 K/mm3 0.0-0.5 N BASOPHIL # (test code = BA#) 0.05 K/mm3 0.0-0.2 N NUCLEATED RBC # (test code = NRBC#) 0.00 K/mm3 0.0-0.1 N MANUAL DIFF REQUIRED (test code = MDIFF) YES STAIN ACCEPTABILITY (test code = STN ACCEPTABLE) TOTAL CELLS COUNTED (test code = TCC) #CELLS SEGMENTED NEUTROPHILS (test code = SEG) % 39-69 LYMPHOCYTE (test code = LYMPH) % 25-55 MONOCYTE (test code = MON) % 0-10 EOSINOPHIL (test code = EOS) % 0.0-5.0 CABOT RINGS (test code = CAB) MORPHOLOGY COMMENT (test code = MOC) PLATELET ESTIMATE (test code = PLTEST) PLATELET MORPHOLOGY (test code = PLTMORPH) [facility] 12/28/18 0324CBC W/MANUAL [id number] 11:14:00* Test Item Value Reference Range Interpretation Comments WHITE BLOOD CELL (test code = WBC) 14.5 K/mm3 4.5-12.5 H RED BLOOD CELL (test code = RBC) 3.28 mill/mm3 4.0-5.8 L HEMOGLOBIN (test code = HGB) 10.2 gram/dL 13.0-17.5 L HEMATOCRIT (test code = HCT) 30.1 % 42.0-52.0 L MEAN CELL VOLUME (test code = MCV) 91.8 fL 80-98 N MEAN CELL HGB (test code = MCH) 31.1 picogram 27.0-33.0 N MEAN CELL HGB CONCETRATION (test code = MCHC) 33.9 gram/dL 33.0-36. 0 N RED CELL DISTRIBUTION WIDTH (test code = RDW) 15.7 % 11.6-16. 2 N RED CELL DISTRIBUTION WIDTH SD (test code = RDW-SD) 52.9 fL 37 .0-51.0 H PLATELET COUNT (test code = PLT) 71 K/mm3 150-450 L RESULT VERIFIED BY REPEAT ANALYSIS MEAN PLATELET VOLUME (test code = MPV) 10.6 fL 6.7-11.0 N IMMATURE GRANULOCYTE % (test code = IG%) 7.5 % 0.0-5.0 H "The appearance of immature granulocytes (myelocytes,pro-myelocytes, meta-myelocytes) in the peripheral blood ofnon- individuals can indicate a response toinfection, inflammation, or other stimulus to the bonemarrow" NUCLEATED RBC % (test code = NRBC%) 0.0 % 0-0 N NEUTROPHIL # (test code = NT#) 12.31 K/mm3 1.8-7.7 H IMMATURE GRANULOCYTE # (test code = IG#) 1.09 x10 3/uL 0-0.03 H LYMPHOCYTE # (test code = LY#) 0.47 K/mm3 1.0-5.0 L MONOCYTE # (test code = MO#) 0.60 K/mm3 0-0.8 N EOSINOPHIL # (test code = EO#) 0.02 K/mm3 0.0-0.5 N BASOPHIL # (test code = BA#) 0.05 K/mm3 0.0-0.2 N NUCLEATED RBC # (test code = NRBC#) 0.00 K/mm3 0.0-0.1 N MANUAL DIFF REQUIRED (test code = MDIFF) YES STAIN ACCEPTABILITY (test code = STN ACCEPTABLE) TOTAL CELLS COUNTED (test code = TCC) #CELLS SEGMENTED NEUTROPHILS (test code = SEG) % 39-69 LYMPHOCYTE (test code = LYMPH) % 25-55 MONOCYTE (test code = MON) % 0-10 EOSINOPHIL (test code = EOS) % 0.0-5.0 MORPHOLOGY COMMENT (test code = MOC) PLATELET ESTIMATE (test code = PLTEST) PLATELET MORPHOLOGY (test code = PLTMORPH) BY [facility] 12/28/18 0324CBC W/MANUAL [id number] 11:14:00* Test Item Value Reference Range Interpretation Comments WHITE BLOOD CELL (test code = WBC) 14.5 K/mm3 4.5-12.5 H RED BLOOD CELL (test code = RBC) 3.28 mill/mm3 4.0-5.8 L HEMOGLOBIN (test code = HGB) 10.2 gram/dL 13.0-17.5 L HEMATOCRIT (test code = HCT) 30.1 % 42.0-52.0 L MEAN CELL VOLUME (test code = MCV) 91.8 fL 80-98 N MEAN CELL HGB (test code = MCH) 31.1 picogram 27.0-33.0 N MEAN CELL HGB CONCETRATION (test code = MCHC) 33.9 gram/dL 33.0-36. 0 N RED CELL DISTRIBUTION WIDTH (test code = RDW) 15.7 % 11.6-16. 2 N RED CELL DISTRIBUTION WIDTH SD (test code = RDW-SD) 52.9 fL 37 .0-51.0 H PLATELET COUNT (test code = PLT) 71 K/mm3 150-450 L RESULT VERIFIED BY REPEAT ANALYSIS MEAN PLATELET VOLUME (test code = MPV) 10.6 fL 6.7-11.0 N IMMATURE GRANULOCYTE % (test code = IG%) 7.5 % 0.0-5.0 H "The appearance of immature granulocytes (myelocytes,pro-myelocytes, meta-myelocytes) in the peripheral blood ofnon- individuals can indicate a response toinfection, inflammation, or other stimulus to the bonemarrow" NUCLEATED RBC % (test code = NRBC%) 0.0 % 0-0 N NEUTROPHIL # (test code = NT#) 12.31 K/mm3 1.8-7.7 H IMMATURE GRANULOCYTE # (test code = IG#) 1.09 x10 3/uL 0-0.03 H LYMPHOCYTE # (test code = LY#) 0.47 K/mm3 1.0-5.0 L MONOCYTE # (test code = MO#) 0.60 K/mm3 0-0.8 N EOSINOPHIL # (test code = EO#) 0.02 K/mm3 0.0-0.5 N BASOPHIL # (test code = BA#) 0.05 K/mm3 0.0-0.2 N NUCLEATED RBC # (test code = NRBC#) 0.00 K/mm3 0.0-0.1 N MANUAL DIFF REQUIRED (test code = MDIFF) YES STAIN ACCEPTABILITY (test code = STN ACCEPTABLE) TOTAL CELLS COUNTED (test code = TCC) #CELLS SEGMENTED NEUTROPHILS (test code = SEG) % 39-69 LYMPHOCYTE (test code = LYMPH) % 25-55 MONOCYTE (test code = MON) % 0-10 MORPHOLOGY COMMENT (test code = MOC) PLATELET ESTIMATE (test code = PLTEST) PLATELET MORPHOLOGY (test code = PLTMORPH) [facility] 12/28/18 0324CBC W/MANUAL [id number] 11:14:00* Test Item Value Reference Range Interpretation Comments WHITE BLOOD CELL (test code = WBC) 14.5 K/mm3 4.5-12.5 H RED BLOOD CELL (test code = RBC) 3.28 mill/mm3 4.0-5.8 L HEMOGLOBIN (test code = HGB) 10.2 gram/dL 13.0-17.5 L HEMATOCRIT (test code = HCT) 30.1 % 42.0-52.0 L MEAN CELL VOLUME (test code = MCV) 91.8 fL 80-98 N MEAN CELL HGB (test code = MCH) 31.1 picogram 27.0-33.0 N MEAN CELL HGB CONCETRATION (test code = MCHC) 33.9 gram/dL 33.0-36. 0 N RED CELL DISTRIBUTION WIDTH (test code = RDW) 15.7 % 11.6-16. 2 N RED CELL DISTRIBUTION WIDTH SD (test code = RDW-SD) 52.9 fL 37 .0-51.0 H PLATELET COUNT (test code = PLT) 71 K/mm3 150-450 L RESULT VERIFIED BY REPEAT ANALYSIS MEAN PLATELET VOLUME (test code = MPV) 10.6 fL 6.7-11.0 N IMMATURE GRANULOCYTE % (test code = IG%) 7.5 % 0.0-5.0 H "The appearance of immature granulocytes (myelocytes,pro-myelocytes, meta-myelocytes) in the peripheral blood ofnon- individuals can indicate a response toinfection, inflammation, or other stimulus to the bonemarrow" NUCLEATED RBC % (test code = NRBC%) 0.0 % 0-0 N NEUTROPHIL # (test code = NT#) 12.31 K/mm3 1.8-7.7 H IMMATURE GRANULOCYTE # (test code = IG#) 1.09 x10 3/uL 0-0.03 H LYMPHOCYTE # (test code = LY#) 0.47 K/mm3 1.0-5.0 L MONOCYTE # (test code = MO#) 0.60 K/mm3 0-0.8 N EOSINOPHIL # (test code = EO#) 0.02 K/mm3 0.0-0.5 N BASOPHIL # (test code = BA#) 0.05 K/mm3 0.0-0.2 N NUCLEATED RBC # (test code = NRBC#) 0.00 K/mm3 0.0-0.1 N MANUAL DIFF REQUIRED (test code = MDIFF) YES STAIN ACCEPTABILITY (test code = STN ACCEPTABLE) TOTAL CELLS COUNTED (test code = TCC) #CELLS SEGMENTED NEUTROPHILS (test code = SEG) % 39-69 LYMPHOCYTE (test code = LYMPH) % 25-55 MONOCYTE (test code = MON) % 0-10 EOSINOPHIL (test code = EOS) % 0.0-5.0 CABOT RINGS (test code = CAB) MORPHOLOGY COMMENT (test code = MOC) PLATELET ESTIMATE (test code = PLTEST) PLATELET MORPHOLOGY (test code = PLTMORPH) BY [facility] 12/28/18 [id number] 11:09:00* Test Item Value Reference Range Interpretation Comments AMMONIA (test code = AMM) 11 umol/L 11-32 N LACTIC [id number] 09:29:00* Test Item Value Reference Range Interpretation Comments LACTIC ACID (test code = LACT) 2.6 mmol/L 0.4-1.9 Results called to [id number] by V.LABJennyDRP 12/28/18 0929Critical results verified and read back by Nurse? Y COMPREHENSIVE METABOLIC [id number] 09:26:00* Test Item Value Reference Range Interpretation Comments SODIUM (test code = NA) 143 mmol/L 136-145 N POTASSIUM (test code = K) 3.7 mmol/L 3.5-5.1 N CHLORIDE (test code = CL) 113.0 mmol/L 98-107 H CARBON DIOXIDE (test code = CO2) 22.0 mmol/L 21-32 N ANION GAP (test code = GAP) 11.7 10-20 N GLUCOSE (test code = GLU) 82 mg/dL 74-106 N BLOOD UREA NITROGEN (test code = BUN) 17 mg/dL 7-18 N GLOMERULAR FILTRATION RATE (test code = GFR) 58 mL/min >=60 Estimated GFR by using Modified MDRD formula.Chronic kidney disease is defined as either kidney damageor GFR <60 mL/min/1.73 m2 for >3 months. CREATININE (test code = CREAT) 1.20 mg/dL 0.7-1.3 N BUN/CREATININE RATIO (test code = BUN/CREA) 14.8 10-20 N TOTAL PROTEIN (test code = PROT) 5.1 gram/dL 6.4-8.2 L ALBUMIN (test code = ALB) 2.3 g/dL 3.4-5.0 L GLOBULIN (test code = GLOB) 2.8 gram/dL 2.7-4.2 N ALBUMIN/GLOBULIN RATIO (test code = A/G) 0.8 0.75-1.50 N CALCIUM (test code = CA) 7.6 mg/dL 8.5-10.1 L BILIRUBIN TOTAL (test code = BILT) 0.90 mg/dL 0.0-1.0 N SGOT/AST (test code = AST) 32 IUnit/L 15-37 N SGPT/ALT (test code = ALT) 19 IUnit/L 12-78 N ALKALINE PHOSPHATASE TOTAL (test code = ALKP) 61 IUnit/L 45-117 N Note change in reference range due to change in reagent. [id number] 09:26:00* Test Item Value Reference Range Interpretation Comments LIPASE (test code = LIP) 14 U/L 73.0-393.0 L COMPREHENSIVE METABOLIC [id number] 09:20:00* Test Item Value Reference Range Interpretation Comments SODIUM (test code = NA) 143 mmol/L 136-145 N POTASSIUM (test code = K) 3.7 mmol/L 3.5-5.1 N CHLORIDE (test code = CL) 113.0 mmol/L 98-107 H CARBON DIOXIDE (test code = CO2) mmol/L 21-32 ANION GAP (test code = GAP) 10-20 GLUCOSE (test code = GLU) mg/dL 74-106 BLOOD UREA NITROGEN (test code = BUN) mg/dL 7-18 GLOMERULAR FILTRATION RATE (test code = GFR) mL/min >=60 CREATININE (test code = CREAT) mg/dL 0.7-1.3 BUN/CREATININE RATIO (test code = BUN/CREA) 10-20 TOTAL PROTEIN (test code = PROT) gram/dL 6.4-8.2 ALBUMIN (test code = ALB) g/dL 3.4-5.0 GLOBULIN (test code = GLOB) gram/dL 2.7-4.2 ALBUMIN/GLOBULIN RATIO (test code = A/G) 0.75-1.50 CALCIUM (test code = CA) mg/dL 8.5-10.1 BILIRUBIN TOTAL (test code = BILT) mg/dL 0.0-1.0 SGOT/AST (test code = AST) IUnit/L 15-37 SGPT/ALT (test code = ALT) IUnit/L 12-78 ALKALINE PHOSPHATASE TOTAL (test code = ALKP) IUnit/L 45-117 [id number] 09:20:00* Test Item Value Reference Range Interpretation Comments LIPASE (test code = LIP) U/L 73.0-393.0 [id number] 17:09:00* Test Item Value Reference Range Interpretation Comments TROPONIN-I (test code = TROPI) 0.056 ng/mL 0-0.045 HH Results called to ELIZA/[id number] V.LAB.SPR 12/27/18 1709Critical results verified and read back by Nurse? Y COMMENTS TO REAMER HAND: COLLECT 3 HOURS AFTER PREVIOUS SAMPLE- US ABDOMEN [id number] 16:45:00 Name: JACK MANZANO [facility] : 1940 Age/S: 78 / M [address] [facility] Unit #: [id number] Loc: [place] [address] Phys: Charan Ardon MD Acct: [id number] Dis Date: Status: ADM IN PHONE #: [phone] Exam Date: 12/27/2018 1635 FAX #: [phone] Reason: CHOLELITHIASIS? VOMITTING EXAMS: CPT CODE: [id number] US ABDOMEN COMPLETE 51029 EXAM: Ultrasound of the abdomen; INFORMATION: Vomiting, gallstones; FINDINGS: COMPARISON patient, difficulty exam; The liver is of normal size and shape; no obvious focal lesions but coarse echotexture. The gallbladder is slightly distended and shows normal wall thickness. It contains sludge but there is no evidence of stones. The common bile duct is prominent, measuring 8 mm in diameter. No dilatation of intrahepatic bile ducts. The pancreas is obscured by bowel gas. The spleen is of normal size and shape and without focal lesions. The kidneys are of normal size and shape; no hydronephrosis; no parenchymal abnormalities. The left kidney measures 8.9 x 4.3 x 4.1 cm. There is a 3 x 5 mm echogenic structure in t he left kidney, consistent with a peripheral, nonobstructing calyceal ston e or a parenchymal calcification. The right kidney measures 8.3 x 4.1 x 3. 1 cm. No right-sided hydronephrosis, stones or parenchymal abnormalities. No ascites. Imaged portions of the IVC and abdominal aorta are unrem arkable. IMPRESSION: 1. Sludge within a slightly distend ed gallbladder but no evidence of gallstones. 2. Mild dilatation of extrahepatic bile ducts; the cause is not clear. If there is clinical suspicion of choledocholithiasis and would recommend MRCP, in case the patient is able to cooperate. 3. Right renal calcification which may be parenchymal or may represent a nonobstructing peripheral calyceal stone. at 0321 Repor chelsea and signed by: Sebas Edwards M.D. CC: Charan Ardon MD; Dr. Gidoen Florez Technologist: Berenice Chávez RDMS [facility] Date/Time: 12/27/2018 (9680) tCOLTON Orig Print D/T: S: 12/27/2018 (7630) Probe: PAGE 1 Signed Report PROCALCITONIN (PCT)2018-12-27 16:22:00* Test Item Value Reference Range Interpretation Comments PROCALCITONIN (PCT) (test code = PROCAL) 14.14 ng/ml Concentration Interpretation (ng/mL) <0.51 Sepsis is not likely. Local bacterial infection is possible. (LOW RISK for progression to Sepsis) 0.51 - 2.00 Sepsis is possible, but other conditions are known to elevate PCT as well. (MODERATE RISK for progression to Sepsis) > 2.00 Sepsis is likely, unless other causes are known. (HIGH RISK for progression to Severe Sepsis or Septic Shock) 10.00 High likelihood of Severe Sepsis or Septic or higher Shock. *Increased PCT levels may not always be related to systemic bacterial infection.*Low PCT levels do not automatically exclude the presence of bacterial infection.*All results should be interpreted taking into account the patients history. SPECIMEN COMMENTS: ADD ONLACTIC [id number] 15:30:00* Test Item Value Reference Range Interpretation Comments LACTIC ACID (test code = LACT) 2.3 mmol/L 0.4-1.9 HH Results called to by V.LAB.SPR 12/27/18 1530Critical results verified and read back by Nurse? Y [id number] 15:26:00* Test Item Value Reference Range Interpretation Comments TROPONIN-I (test code = TROPI) 0.043 ng/mL 0-0.045 N COMMENTS TO REAMER HAND: COLLECT 3 HOURS AFTER PREVIOUS SAMPLELACTIC [id number] 11:49:00* Test Item Value Reference Range Interpretation Comments LACTIC ACID (test code = LACT) 2.0 mmol/L 0.4-1.9 H Results called to MANJIT [id number] V.LAB.GP 12/27/18 1148Critical results verified and read back by Nurse? Y URINALYSIS [id number] 11:37:00* Test Item Value Reference Range Interpretation Comments UA COLOR (test code = COLU) Light-Yellow YELLOW UA APPEARANCE (test code = APPU) CLEAR CLEAR UA GLUCOSE DIPSTICK (test code = DGLUU) NEGATIVE mg/dL NEGATIVE UA BILIRUBIN DIPSTICK (test code = BILU) NEGATIVE mg/dL NEGATIVE UA KETONE DIPSTICK (test code = KETU) NEGATIVE mg/dL NEGATIVE UA SPECIFIC GRAVITY (test code = SGU) 1.022 1.001-1.035 UA BLOOD DIPSTICK (test code = GURMEET) Negative mg/dL NEGATIVE UA PH DIPSTICK (test code = LEXI) 5.5 5.0-8.0 UA PROTEIN DIPSTICK (test code = PROU) NEGATIVE mg/dL NEGATIVE UA UROBILINIOGEN DIPSTICK (test code = URO) Normal mg/dL NEGATIVE UA NITRITE DIPSTICK (test code = NI) NEGATIVE NEGATIVE UA LEUKOCYTE ESTERASE W REFLEX (test code = LEUUR) NEGATIVE Sandip/uL NEGATIVE UA WBC (test code = WBCU) 0-5 per HPF 0-5 UA RBC (test code = RBCU) 0-2 #/HPF 0-5 UA EPITHELIAL CELLS (test code = EPIU) FEW per HPF FEW UA BACTERIA (test code = BACU) NONE SEEN #/HPF NONE Urine Source? Clean CatchURINALYSIS [id number] 11:36:00* Test Item Value Reference Range Interpretation Comments UA COLOR (test code = COLU) Light-Yellow YELLOW UA APPEARANCE (test code = APPU) CLEAR CLEAR UA GLUCOSE DIPSTICK (test code = DGLUU) NEGATIVE mg/dL NEGATIVE UA BILIRUBIN DIPSTICK (test code = BILU) NEGATIVE mg/dL NEGATIVE UA KETONE DIPSTICK (test code = KETU) NEGATIVE mg/dL NEGATIVE UA SPECIFIC GRAVITY (test code = SGU) 1.022 1.001-1.035 UA BLOOD DIPSTICK (test code = GURMEET) Negative mg/dL NEGATIVE UA PH DIPSTICK (test code = LEXI) 5.5 5.0-8.0 UA PROTEIN DIPSTICK (test code = PROU) NEGATIVE mg/dL NEGATIVE UA UROBILINIOGEN DIPSTICK (test code = URO) Normal mg/dL NEGATIVE UA NITRITE DIPSTICK (test code = NI) NEGATIVE NEGATIVE UA LEUKOCYTE ESTERASE W REFLEX (test code = LEUUR) NEGATIVE Sandip/uL NEGATIVE UA WBC (test code = WBCU) per HPF 0-5 UA RBC (test code = RBCU) per HPF 0-5 UA EPITHELIAL CELLS (test code = EPIU) per HPF Few UA BACTERIA (test code = BACU) per HPF NONE Urine Source? Clean Catch- CT ABD PELVIS [id number] 10:47:00 Name: JACK MANZANO [facility] : 1940 Age/S: 78 / M [address] [facility] Unit #: [id number] Loc: [place] [address] Phys: Ronald Bonilla MD Acct: [id number] Di s Date: Status: REG ER PHONE #: [phone] Exam Date: 12/27/2018 1020 FAX #: Reason: vomiting EXAMS: CPT CODE: [id number] CT ABD PELVIS W/CONT [id number] REASON FOR EXAM: vomiting EXAM ORDER DATE: 12/27/2018 10:07 AM Ordering M.DJenny: Tawnya oBnilla MD PROCEDURE: - CT ABD PELVIS W/CONT contrast -enhanced axial CT images were acquired through the abdomen/pelvis at 5 mm intervals. Sagittal and coronal reformatted images were generated. Auto mated exposure control was utilized for this reduction. Phas es of contrast: venous and delayed COMPARISON: CT abdomen and pelv is December 12, 2015. CT chest March 31, 2017 was also reviewed. FINDINGS: Visualized thorax: There are nodular and consol idative opacities in the lung bases with interlobular septal thickening. L arlet from a cardiac device terminate in the right atrium and right ventric le. Atherosclerotic disease is present in the coronary arteries and thoracic aorta. Hepatobiliary system: Scattered hepatic cysts are unchanged from the prior exam. Gallbladder is markedly distended but no ca lcified stones are seen within its lumen Pancreas: Atrophic. Spleen: There are a few calcified granulomas in the parenchyma. Adrenal glands: Normal Genitourinary system: Normal Gastrointestinal tract and appendix: There is fluid within the visualized esophagus. Postsurgical changes in the stomach may represent a distal gastrectomy. Small bowel is grossly within normal limits. There is a copious amount of stool within the colon. And there is a ball of stool in the rectum that measures up to 8 cm in diameter and up to 11 cm in domonique gth. The appendix is within normal limits. Abdominal vascular stru ctures: Atherosclerotic disease is scattered throughout the abdominal aort a and iliac arteries. PAGE 1 Signed Report (CONTINUED) Name: JACK MANZANO [facility] : 1940 Age/S: 78 / M [address] [facility] Unit #: [id number] Loc: [place] [address] Phys: Tawnya Bonilla MD Acct: [id number] Dis Date: Status: REG ER PHONE #: [phone] Exam Date: 12/27/2018 1020 FAX #: [phone] Reason: vomiting EXAMS: CPT CODE: [id number] ABD PELVIS W/CONT 75188 < Continued> Peritoneum and retroperitoneum: No free fluid or free air. No omental or mesenteric masses. No abnormal lymph nodes. Musculoskeletal structures and abdominal wall: There is chronic height loss of the L1 vertebral body that is unchanged from 2016. 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 Degenerative changes are also present in the hips. IMPRESSION: Heavy colonic stool burden with large rectal stool ball as described above is consistent with constipation and possibly fecal impaction. Airspace disease and intralobular septal thickening in the visualized lung bases may represent any combination of aspiration and pneumonia. Marked distention of the gallbladder but no calcified gallbladder stones are present. This may be secondary to decreased by mouth intake. This can be further evaluated with abdominal ultrasound if clinically warranted. Chronic compression fracture of the L1 vertebral body as well as grade 1 anterolisthesis of L5-S1 are unchanged from 2016. at 1047 Reported and signed by: Chiki Amos MD CC: Dr. Tg Florez; Tawnya Bonilla MD Technologist:William Yarbrough RT(R),(MR),(CT); CTDI: DLP: Trnscb Date/Time: 12/27/2018 (0767) t.[email or web address].[email or web address] Orig Print D/T: S: 12/27/2018 (2921) PAGE 2 Signed Report - CT C-SPINE W/O CONTRAST 2018-12-27 10:26:00 Name: JACK MANZANO [facility] : 1940 Age/S: 78 / M [address] [facility] Unit #: [id number] Loc: [place] [address] Phys: Tawnya Bonilla MD Acct: [id number] Dis Date: Status: REG ER PHONE #: [phone] Exam Date: 12/27/2018 1020 FAX #: [phone] Reason: fall EXAMS: CPT CODE: [id number] CT C-SPINE W/O CONTRAST [id number] REASON FOR EXAM: fall EXAM ORDER DATE: 12/27/2018 9:59 AM Ordering Jael: Tawnya Bonilla MD PROCEDURE: - CT C- SPINE W/O CONTRAST FINDINGS: CT images of the cervical spine were obtained without IV contrast at 2.5mm. Reconstructed coronal and sagittal images were also provided. Dose modulation, iterative reconstruction, and/or weight based adjustment of the MA/KV was utilized to reduce the radiation dose to as low as reasonably achievable. The osseous structures are intact. Osteophytes are seen at C2-C6 The central canal is patent. Severe narrowing of the disc spaces at C3-4 and C4-5. Mild narrowing of C6-7 IMPRESSION: Degenerative changes and disc disease. No acute osseous abnormality at 1026 Reported and signed by: Omid Villalba M.D. CC: Dr. Tg Florez; Tawnya Bonilla MD Technologist:William Yarbrough RT(R),(MR),(CT); CTDI: DLP: Trnscb Date/Time: 12/27/2018 (1026) [email or web address] Orig Print D/T: S: 12/27/2018 (3320) PAGE 1 Signed Report - CT HEAD/BRAIN W/O [id number] 10:25:00 Name: JACK MANZANO [facility] : 1940 Age/S: 78 / M [address] [facility] Unit #: [id number] Loc: [place] [address] Phys: Tawnya Bonilla MD Acct: [id number] Dis Date: Status: REG ER PHONE #: [phone] Exam Date: 12/27/2018 1020 FAX #: [phone] Reason: fall EXAMS: CPT CODE: [id number] CT HEAD/BRAIN W/O CONT 37588 REASON FOR EXAM: fall EXAM ORDER DATE: 12/27/2018 9:59 AM Ordering Jael: Tawnya Bonilla MD PROCEDURE: - CT HEAD/BRAIN W/O CONT COMPARISON: 07/20/2015 FINDINGS: CT images of the brain were obtained without IV contrast. Dose modulation, iterative reconstruction, and/or weight based adjustment of the MA/KV was utilized to reduce the radiation dose to as low as reasonably achievable. Mild patchy low densities appearance of the paraventricular region noted consistent with nonspecific white matter disease. The fernandez-white matter delineation is unremarkable. The ventricles, cisterns, and sulci are unremarkable. There is no evidence of hemorrhage, mass, mass effect. There is no evidence of acute or old infarct. The calvarium is intact. IMPRESSION: Unremarkable brain. at 1025 Reported and signed by: Omid Villalba M.D. CC: Dr. Tg Florez; Tawnya Bonilla MD Technologist:William Yarbrough RT(R),(MR),(CT); CTDI: DLP: Trnscb Date/Time: 12/27/2018 (6134) t.SDR.VTL Orig Print D/T: S: 12/27/2018 (4593) PAGE 1 Signed Report B-TYPE NATRIURETIC [id number] 10:22:00* Test Item Value Reference Range Interpretation Comments B-TYPE NATRIURETIC PEPTIDE (test code = BNP) 172.93 pgram/mL 0-100 H - XR CHEST 1 [id number] 10:10:00 FAX: Tg Pierre [phone] [place]: B St: REG FAX: Tawnya Christina [phone] Name: JACK MANZANO [facility] : 1940 Age/S: 78/M [address] [facility] Unit #: [id number] Loc: [place] [address] Phys: Tawnya Bonilla MD Acct: [id number] Dis Date: Status: REG ER PHONE #: [phone] Exam Date: 12/27/2018 1005 FAX #: [phone] Reason: CODE SEPSIS EXAMS: CPT CODE: [id number] XR CHEST 1 V [id number] REASON FOR EXAM: CODE SEPSIS Exam Order Date: 12/27/2018 9:13 AM Ordering M.D.: Tawnya Bonilla MD PROCEDURE: - XR CHEST 1 V COMPARISON: Frontal chest x-ray April 11, 2017 FINDINGS: Left subclavian dual-lead pacemaker is redemonstrated with leads terminating in the right atrium and right ventricle. There are patchy airspace opacities in the mid to lower lungs bilaterally which may represent any combination of asymmetric pulmonary edema and pneumonia. The upper lungs are relatively clear. Cardiomediastinal silhouette is normal in size for technique. The med iastinal contours are within normal limits. There are mild degener ative changes in the spine. Prior cholecystectomy. IMPRESSION: Airspace opacities in the mid to lower lungs bilate rally, worse on the right side, may represent any combination of asymmet avery pulmonary edema and pneumonia. at 1010 Reported and signed by: Chiki Amos MD CC: Dr. Tg Florez; Tawnya Bonilla MD Technologist: Yajaira Barnes RT(R) Trnscrd Date/Time/By: 12/27/2018 (1010) : By: [email or web address] Orig Print D/T: S: 12/27/2018 (1014) PAGE 1 Signed Report PROTHROMBIN [id number] 09:58:00* Test Item Value Reference Range Interpretation Comments PROTHROMBIN TIME PATIENT (test code = PTP) 13.1 seconds 9.0-14.0 N INTERNATIONAL NORMAL RATIO (test code = INR) 1.1 0.8-1.2 N The therapeutic range for oral anticoagulant therapy formost indications is an international normalized ratio (INR)of between 2.0 and 3.0. The recommended therapeutic INRrange for various clinical situations is listed below: Clinical Situation INR range Pulmonary e mbolism treatment (2.0-3.0)Venous thrombosis treatmentVenous thrombosis prophylaxis (high risk surgery)Prevention of systemic embolism from: Acute myocardial infarction Valvular heart disease Atrial fibrillation Mechanical prosthetic heart valves (2.5-3.5) IS PATIENT ON ANTICOAGULANTS? NTHROMBOPLASTIN TIME [id number] 09:58:00* Test Item Value Reference Range Interpretation Comments THROMBOPLASTIN TIME PARTIAL (test code = PTT) 26.7 seconds 25.0-36. 5 N IS PATIENT ON ANTICOAGULANTS? NBASIC METABOLIC [id number] 09:52:00* Test Item Value Reference Range Interpretation Comments SODIUM (test code = NA) 144 mmol/L 136-145 N POTASSIUM (test code = K) 5.5 mmol/L 3.5-5.1 H CHLORIDE (test code = CL) 110.0 mmol/L 98-107 H CARBON DIOXIDE (test code = CO2) 23.0 mmol/L 21-32 N ANION GAP (test code = GAP) 16.5 10-20 N GLUCOSE (test code = GLU) 113 mg/dL 74-106 H BLOOD UREA NITROGEN (test code = BUN) 20 mg/dL 7-18 H GLOMERULAR FILTRATION RATE (test code = GFR) > 60 mL/min >=60 Estimated GFR by using Modified MDRD formula.Chronic kidney disease is defined as either kidney damageor GFR <60 mL/min/1.73 m2 for >3 months. CREATININE (test code = CREAT) 1.00 mg/dL 0.7-1.3 N BUN/CREATININE RATIO (test code = BUN/CREA) 19.0 10-20 N CALCIUM (test code = CA) 8.3 mg/dL 8.5-10.1 L HEPATIC FUNCTION [id number] 09:52:00* Test Item Value Reference Range Interpretation Comments TOTAL PROTEIN (test code = PROT) 6.0 gram/dL 6.4-8.2 L ALBUMIN (test code = ALB) 3.0 g/dL 3.4-5.0 L GLOBULIN (test code = GLOB) 3.0 gram/dL 2.7-4.2 N ALBUMIN/GLOBULIN RATIO (test code = A/G) 1.0 0.75-1.50 N BILIRUBIN TOTAL (test code = BILT) 0.50 mg/dL 0.0-1.0 N BILIRUBIN DIRECT (test code = BILD) 0.10 mg/dL 0.0-0.20 N SGOT/AST (test code = AST) 37 IUnit/L 15-37 N SGPT/ALT (test code = ALT) 22 IUnit/L 12-78 N ALKALINE PHOSPHATASE TOTAL (test code = ALKP) 89 IUnit/L 45-117 N Note change in reference range due to change in reagent. [id number] 09:52:00* Test Item Value Reference Range Interpretation Comments LIPASE (test code = LIP) 143 U/L 73.0-393.0 N [id number] 09:52:00* Test Item Value Reference Range Interpretation Comments TROPONIN-I (test code = TROPI) <0.015 ng/mL 0-0.045 N LACTIC [id number] 09:51:00* Test Item Value Reference Range Interpretation Comments LACTIC ACID (test code = LACT) 4.5 mmol/L 0.4-1.9 HH Results called to DR BONILLA by HALLE 12/27/18 0951Critical results verified and read back by Nurse? Y [id number] 09:43:00* Test Item Value Reference Range Interpretation Comments AMMONIA (test code = AMM) 33 umol/L 11-32 H BASIC METABOLIC [id number] 09:42:00* Test Item Value Reference Range Interpretation Comments SODIUM (test code = NA) 144 mmol/L 136-145 N POTASSIUM (test code = K) 5.5 mmol/L 3.5-5.1 H CHLORIDE (test code = CL) 110.0 mmol/L 98-107 H CARBON DIOXIDE (test code = CO2) mmol/L 21-32 ANION GAP (test code = GAP) 10-20 GLUCOSE (test code = GLU) mg/dL 74-106 BLOOD UREA NITROGEN (test code = BUN) mg/dL 7-18 GLOMERULAR FILTRATION RATE (test code = GFR) mL/min >=60 CREATININE (test code = CREAT) mg/dL 0.7-1.3 BUN/CREATININE RATIO (test code = BUN/CREA) 10-20 CALCIUM (test code = CA) mg/dL 8.5-10.1 HEPATIC FUNCTION [id number] 09:42:00* Test Item Value Reference Range Interpretation Comments TOTAL PROTEIN (test code = PROT) gram/dL 6.4-8.2 ALBUMIN (test code = ALB) g/dL 3.4-5.0 GLOBULIN (test code = GLOB) gram/dL 2.7-4.2 ALBUMIN/GLOBULIN RATIO (test code = A/G) 0.75-1.50 BILIRUBIN TOTAL (test code = BILT) mg/dL 0.0-1.0 BILIRUBIN DIRECT (test code = BILD) mg/dL 0.0-0.20 SGOT/AST (test code = AST) IUnit/L 15-37 SGPT/ALT (test code = ALT) IUnit/L 12-78 ALKALINE PHOSPHATASE TOTAL (test code = ALKP) IUnit/L 45-117 [id number] 09:42:00* Test Item Value Reference Range Interpretation Comments LIPASE (test code = LIP) U/L 73.0-393.0 [id number] 09:42:00* Test Item Value Reference Range Interpretation Comments TROPONIN-I (test code = TROPI) ng/mL 0-0.045 CBC W/AUTO [id number] 09:31:00* Test Item Value Reference Range Interpretation Comments WHITE BLOOD CELL (test code = WBC) 3.6 K/mm3 4.5-12.5 L RED BLOOD CELL (test code = RBC) 3.91 mill/mm3 4.0-5.8 L HEMOGLOBIN (test code = HGB) 12.0 gram/dL 13.0-17.5 L HEMATOCRIT (test code = HCT) 37.0 % 42.0-52.0 L MEAN CELL VOLUME (test code = MCV) 94.6 fL 80-98 N MEAN CELL HGB (test code = MCH) 30.7 picogram 27.0-33.0 N MEAN CELL HGB CONCETRATION (test code = MCHC) 32.4 gram/dL 33.0-36. 0 L RED CELL DISTRIBUTION WIDTH (test code = RDW) 16.0 % 11.6-16. 2 N RED CELL DISTRIBUTION WIDTH SD (test code = RDW-SD) 54.9 fL 37 .0-51.0 H PLATELET COUNT (test code = PLT) 113 K/mm3 150-450 L MEAN PLATELET VOLUME (test code = MPV) 10.3 fL 6.7-11.0 N NEUTROPHIL % (test code = NT%) 77.1 % 39.0-69.0 H IMMATURE GRANULOCYTE % (test code = IG%) 0.3 % 0.0-5.0 N LYMPHOCYTE % (test code = LY%) 20.0 % 25.0-55.0 L MONOCYTE % (test code = MO%) 1.7 % 0.0-10.0 N EOSINOPHIL % (test code = EO%) 0.6 % 0.0-5.0 N BASOPHIL % (test code = BA%) 0.3 % 0.0-1.0 N NUCLEATED RBC % (test code = NRBC%) 0.0 % 0-0 N NEUTROPHIL # (test code = NT#) 2.78 K/mm3 1.8-7.7 N IMMATURE GRANULOCYTE # (test code = IG#) 0.01 x10 3/uL 0-0.03 N LYMPHOCYTE # (test code = LY#) 0.72 K/mm3 1.0-5.0 L MONOCYTE # (test code = MO#) 0.06 K/mm3 0-0.8 N EOSINOPHIL # (test code = EO#) 0.02 K/mm3 0.0-0.5 N BASOPHIL # (test code = BA#) 0.01 K/mm3 0.0-0.2 N NUCLEATED RBC # (test code = NRBC#) 0.00 K/mm3 0.0-0.1 N POC LACTIC [id number] 09:26:00* Test Item Value Reference Range Interpretation Comments POC LACTIC ACID (test code = POCLAC) 4.57 MMOL/L 0.4-2.2 H - XR HAND 3 + V [id number] 15:44:00 FAX: Tg Pierre [phone] [place]: O St: REG Name: JACK ABARCA [facility] : [birth year] Age/S: 78/M [address] Unit #: [id number] Loc: [place] [address] Phys: Tg Florez MD Acct: [id number] Dis Date: Status: REG CLI PHONE #: [phone] Exam Date: 09/27/2018 1521 FAX #: [phone] Reason: INJURY EXAMS: CPT CODE: [id number] XR HAND 3 + V LT [id number] REASON FOR EXAM: INJURY EXAM ORDER DATE: 09/27/2018 3:08 PM Or whitney Elder: Tg Florez MD PROCEDURE: - XR HAND 3 + V LT FINDINGS: 3 views of the left hand were obtained. Severe narrowi ng of the 1st MCP and at the 5th PIP joint spaces. Mild sclerosis of the capitate and scaphoid. Small osteophytes in the head of the left 5th proximal phalanx. 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 No acute osseous abnormality at 5844 Reported and signed by: Omid Villalba M.D. CC: Dr. Tg Florez Technologist: Lea Lao RT(R) Trnscrd Date/Time/By: 09/27/2018 (3003) : By: Alana Orig Print D/T: S: 09/27/2018 (5533) PAGE 1 Signed Report - XR WRIST 3 + V [id number] 15:42:00 FAX: Tg Pierre [phone] [place]: O St: REG Name: JACK ABARCA [facility] : [birth year] Age/S: 78/M [address] Unit #: [id number] Loc: [place] [address] Phys: Tg Florez MD Acct: [id number] Dis Date: Status: REG CLI PHONE #: [phone] Exam Date: 09/27/2018 1521 FAX #: [phone] Reason: EXAMS: CPT CODE: [id number] XR WRIST 3 + [place] [address] REASON FOR EXAM: EXAM ORDER DATE: 09/27/2018 3:08 PM Ordering M .D.: Tg Florez MD PROCEDURE: - XR WRIST 3 + V LT FINDINGS: 3 views of the left wrist were obtained. Severe narrowing of the radiocarpal joint space with minimal impaction of the scaphoid. Chondrocalcinosis of the ulnocarpal joint space. Moderate sclerosis of th e 1st MCP joint. 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 No evidence for acute fracture IMPRESSION: Severe d egenerative changes most pronounced in the radiocarpal joint space with mild sclerosis of the scaphoid and mild chondrocalcinosis of the ulnocar pal joint space. No acute osseous abnormality Electronicall y Signed by Jael Villalba on 09/27/2018 at 1543 Reported and signed by: Omid Villalba M.D. CC: Dr. Tg Florez Technologist: RT Berry(David) Trnmicorey Date/Time/By: 09/27/2018 (3482) : By: Alana Orig Print D/T: S: 09/27/2018 (8127) PAGE 1 Signed Report - XR WRIST 3 + V LT 2018-05-02 12:17:00 FAX: Tg Pierre [phone] [place]: O St: REG FAX: Y Ashwin Elder MD [phone] Name: JACK MANZANO [facility] : 1940 Age/S: 78/M [address] [facility] Unit #: [id number] Loc: [place] [address] Phys: Ashwin Elder MD Acct: [id number] Dis Date: Status: REG RCR PHONE #: [phone] Exam Date: 05/02/2018 1207 FAX #: [phone] Reason: LT HAND CYST EXAMS: CPT CODE: [id number] XR WRIST 3 + V LT [address]41 HISTORY: Left hand cyst. COMPARISON: None available. 3 views of the left hand and wrist: No acute fracture or dislocation. Mild polyarticular joint space narrowing with dorsal angulation at the 5th MCP joint. Subchondral cysts within the distal end of the 2nd metacarpal bone. No erosive or destructive change. Mild osteopenia. Moderate narrowing of the wrist joint with marked narrowing of the radiocarpal joints. No AVN of the lunate and scaphoid bones. Chondrocalcinosis is noted. Vascular calcifications. No cyst is visible on this exam. IMPRESSION: Ganglion cyst or other cyst are not visible. No erosive or destructive change. Polyart icular joint space narrowing suggestive of advanced osteoarthritis. Mil d chronic appearing dorsal angulation at the 5th MCP joint. at 1217 Reported and signed by: Porter Perry M.D. CC: Dr. Susan Florez; Ashwin Elder MD Technologist: David Smart(David) Trnscrd Date/Time/By: 05/02/2018 (1217) : B y: [email or web address] Orig Print D/T: S: 05/02/2018 (7471) PAGE 1 Signed Report - XR HAND 3 + V [id number] 12:17:00 FAX: Tg Pierre [phone] [place]: O St: REG FAX: Ashwin Kent MD [phone] Name: JACK MANZANO [facility] : 1940 Age/S: 78/M [address] [facility] Unit #: [id number] Loc: [place] [address] Phys: Ashwin Elder MD Acct: [id number] Dis Date: Status: REG RCR PHONE #: [phone] Exam Date: 05/02/2018 1207 FAX #: [phone] Reason: LT HAND CYST EXAMS: CPT CODE: [id number] XR HAND 3 + V [place] [address] HISTORY: Left hand cyst. COMPARISON: None available. 3 views of the left hand and wrist: No acute fracture or dislocation. Mild polyarticular joint space narrowing with dorsal angulation at the 5th MCP joint. Subchondral cysts within the distal end of the 2nd metacarpal bone. No erosive or destructive change. Mild oste openia. Moderate narrowing of the wrist joint with marked narrowin g of the radiocarpal joints. No AVN of the lunate and scaphoid bones. Chondrocalcinosis is noted. Vascular calcifications. No cyst is visi ble on this exam. IMPRESSION: Ganglion cyst or other cyst are not visible. No erosive or destructive change. Polyart icular joint space narrowing suggestive of advanced osteoarthritis. Mil d chronic appearing dorsal angulation at the 5th MCP joint. at 1217 Reported and signed by: Porter Perry M.D. CC: Dr. Susan Florez; Ashwin Elder MD Technologist: David Smart(David) Trnscrd Date/Time/By: 05/02/2018 (7792) : B y: [email or web address] Orig Print D/T: S: 05/02/2018 (7538) PAGE 1 Signed Report White Blood [id number] 11:42:00* Test Item Value Reference Range Interpretation Comments White Blood Count (test code = 6690-2) 3.70 4.8-10.8 L [facility] [id number] 11:42:00* Test Item Value Reference Range Interpretation Comments Red Blood Count (test code = 789-8) 4.08 4.3-5.7 L [facility] BrookHemoglobin2017-09-12 11:42:00* Test Item Value Reference Range Interpretation Comments Hemoglobin (test code = 27991-8) 13.3 14.0-18.0 L [facility] BrookHematocrit2017-09-12 11:42:00* Test Item Value Reference Range Interpretation Comments Hematocrit (test code = 4544-3) 38.3 38.2-49.6 [facility] Corpuscular [id number] 11:42:00* Test Item Value Reference Range Interpretation Comments Mean Corpuscular Volume (test code = 787-2) 93.9 81-99 [facility] Corpuscular [id number] 11:42:00* Test Item Value Reference Range Interpretation Comments Mean Corpuscular Hemoglobin (test code = 785-6) 32.6 28-32 H [facility] Corpuscular Hemoglobin Concent 2016-12-15 11:42:00* Test Item Value Reference Range Interpretation Comments Mean Corpuscular Hemoglobin Concent (test code = 786-4) 34.7 31-35 [facility] Cell Distribution [id number] 11:42:00* Test Item Value Reference Range Interpretation Comments Red Cell Distribution Width (test code = 20724-0) 14.4 11.7 -14.4 [facility] BrookPlatelet [id number] 11:42:00* Test Item Value Reference Range Interpretation Comments Platelet Count (test code = 777-3) 135 140-360 L [facility] BrookNeutrophils (%) (Auto)2016-12-15 11:42:00 * Test Item Value Reference Range Interpretation Comments Neutrophils (%) (Auto) (test code = 12534-9) 63.0 38.7-80.0 [facility] BrookLymphocytes (%) (Auto)2016-12-15 11:42:00 * Test Item Value Reference Range Interpretation Comments Lymphocytes (%) (Auto) (test code = 736-9) 19.5 18.0-39.1 [facility] Brook[facility]ocytes (%) (Auto)2016-12-15 11:42:00* Test Item Value Reference Range Interpretation Comments Monocytes (%) (Auto) (test code = 5905-5) 13.8 4.4-11.3 H [facility] BrookEosinophils (%) (Auto)2016-12-15 11:42:00 * Test Item Value Reference Range Interpretation Comments Eosinophils (%) (Auto) (test code = 713-8) 2.4 0.0-6.0 [facility]ophils (%) (Auto)2016-12-15 11:42:00* Test Item Value Reference Range Interpretation Comments Basophils (%) (Auto) (test code = 706-2) 0.8 0.0-1.0 [facility] BrookIM GRANULOCYTES %2016-12-15 11:42:00* Test Item Value Reference Range Interpretation Comments IM GRANULOCYTES % (test code = IM GRANULOCYTES %) 0.5 0.0- 1.0 [facility] BrookNeutrophils # (Auto)2016-12-15 11:42:00* Test Item Value Reference Range Interpretation Comments Neutrophils # (Auto) (test code = 751-8) 2.3 2.1-6.9 [facility] BrookLymphocytes # (Auto)2016-12-15 11:42:00* Test Item Value Reference Range Interpretation Comments Lymphocytes # (Auto) (test code = 72518-9) 0.7 1.0-3.2 L [facility] BrookMonocytes # (Auto)2016-12-15 11:42:00* Test Item Value Reference Range Interpretation Comments Monocytes # (Auto) (test code = 742-7) 0.5 0.2-0.8 [facility] BrookEosinophils # (Auto)2016-12-15 11:42:00* Test Item Value Reference Range Interpretation Comments Eosinophils # (Auto) (test code = 711-2) 0.1 0.0-0.4 [facility]ophils # (Auto)2016-12-15 11:42:00* Test Item Value Reference Range Interpretation Comments Basophils # (Auto) (test code = 704-7) 0.0 0.0-0.1 [facility] BrookAbsolute Immature Granulocyte (auto 2016-12-15 11:42:00* Test Item Value Reference Range Interpretation Comments Absolute Immature Granulocyte (auto (ino t code = Absolute Immature Granulocyte (auto) 0.02 0-0.1 [facility]
[2019-11-26 20:13] LABS: ALANINE AMINOTRANSFERASE 20 IU/L (0-55); ALBUMIN 3.7 g/dL (3.5-5.0); ALBUMIN/GLOBULIN RATIO 1.1 (0.8-2.0); ALKALINE PHOSPHATASE 71 IU/L (40-150); ANION GAP 16.2 mmol/L (8-16); BLOOD UREA NITROGEN 17 mg/dL (7-26); BUN/CREATININE RATIO 18 (6-25); CALCIUM 8.7 mg/dL (8.4-10.2); CARBON DIOXIDE 22 mmol/L (22-29); CHLORIDE 98 mmol/L (98-107); CREATINE KINASE 144 IU/L (30-200); CREATININE, SERUM 0.95 mg/dL (0.72-1.25); EST GLOMERULAR FILTRATION RATE > 60 ML/MIN (60-); GLUCOSE 91 mg/dL (74-118); SODIUM 131 mmol/L (136-145)
[2019-11-26 20:19] LABS: POTASSIUM 5.2 mmol/L (3.5-5.1)
[2019-11-26] MEDS ORDERED: SODIUM CHLORIDE 0.9% 50ML 50 ML ONE (20:37)
[2019-11-26] MEDS ORDERED: IOPAMIDOL 370 MG/ML 200 ML INFUS..BTL INJ ONE (20:37)
--- OUTSIDE RECORDS SUMMARY | 2019-11-26 20:51 | XMS REPORT | Continuity of Care Document ---
Author Author [facility] Organization [facility] Address [address] [place] [address] Phone Unavailable Care Team Providers Care Carpet Weaver Name Role Phone TG FLOREZ MD PCP Payers Payer Name Policy Type Policy Number Effective Date Expiration Date S josselyn Miscellaneous Ppo [id number] 2004 00:00:00 [facility] Medicare A & B [id number] 2004 00:00:00 C [facility] Problems Condition Name Condition Details Condition Category Status Onset Date Resolution Date Last Treatment Date Treating Clinician Comments Source Hepatic encephalopathy Hepatic encephalopathy Problem Active 2014-09-06 00:00:00 [facility] Hepatic cirrhosis Cirrhosis Problem Active 2014-09-05 00:00:00 [facility] Gastrointestinal hemorrhage GI bleed Problem Active 2014-09-05 00:00:00 [facility] Hyperammonemia Hyperammonemia Problem Active 2014-09-05 00:00:00 [facility] Allergies, Adverse Reactions, Alerts Allergy Name Allergy Type Status Severity Reaction(s) Onset Date Inacti ve Date Treating Clinician Comments Source adhesive tape DA Active 2017-04-10 00:00:00 [facility] nut - unspecified FA Active 2017-04-10 00:00:00 [facility] nut - unspecified DA Active 2017-04-10 00:00:00 [facility] Medications Ordered Medication Name Filled Medication Name Start Date Stop Da te Current Medication? Ordering Clinician Indication Dosage Frequency Signature (SIG) Comments Components Source Lactulose 10 Gm/15 Ml Solution Lactulose 10 Gm/15 Ml Solution Yes 1 Three Times A Day [facility] Oxycodone Hcl (Oxycontin) 30 Mg Tab.er.12h Oxycodone H cl (Oxycontin) 30 Mg Tab.er.12h Yes 30 Every 8 Hours C [facility] Rifaximin (Xifaxan) 550 Mg Tablet Rifaximin (Xifaxan) 550 Mg Tablet Yes 550 Twice A Day [facility] Sucralfate 1 Gm Tablet Sucralfate 1 Gm Tablet Yes 1 Twice A Day [facility] Pantoprazole Sodium (Protonix) 40 Mg Tablet., 40 Mg Oral Pantoprazole Sodium (Protonix) 40 Mg Tablet.dr, 40 Mg Oral 2016-09-03 00:00:00 No 40 Daily [facility] Propranolol Hcl 10 Mg Tablet, 10 Mg Oral Propranolol H cl 10 Mg Tablet, 10 Mg Oral 2016-09-03 00:00:00 No 10 Twice A Day [facility] Alprazolam (Xanax) 2 Mg Tablet, 4 Mg Oral Alprazolam ( Xanax) 2 Mg Tablet, 4 Mg Oral 2015-08-06 00:00:00 No 4 As Needed as neede d for Anxiety [facility] Folic Acid 1 Mg Tablet, 1 Mg Oral Folic Acid 1 Mg Tablet, 1 Mg O ral 2015-08-06 00:00:00 No 1 Daily [facility] Propranolol Hcl 10 Mg Tablet, 20 Mg Oral Propranolol H cl 10 Mg Tablet, 20 Mg Oral 2014-10-08 00:00:00 No 20 Twice A Day [facility] Buspirone Hcl 15 Mg Tablet, 15 Mg Oral Buspirone Hcl 15 Mg Table t, 15 Mg Oral 2014-08-07 00:00:00 No 15 Daily [facility] Fish Oil , Fish Oil , 2014-08-07 00:00:00 No Linda ly [facility] Folic Acid 1 Mg Tablet, 1 Mg Oral Folic Acid 1 Mg Tablet, 1 Mg O ral 2014-08-07 00:00:00 No 1 Daily [facility] Iron Tab , Mg Oral Iron Tab , Mg Oral 2014-08-07 00:00:00 No Daily [facility] Lactulo , 15 Mg Oral Lactulo , 15 Mg Oral 2014-08-07 00:00:00 No 15 Three Times A Day [facility] Vitamin D , Oral Vitamin D , Oral 2014-08-07 00:00:00 No Daily [facility] Vitamin E , Vitamin E , 2014-08-07 00:00:00 No D aily [facility] Procedures This patient has no known procedures. Encounters Start Date/Time End Date/Time [facility] ID Source 2017-08-17 15:50:00 2017-08-17 15:50:00 Registered Emergency Room [facility] [id number] [facility] 2016-12-15 10:23:00 2016-12-15 10:23:00 Registered Surgical Day Care [facility] [id number] [facility] Results Test Description Test Time Test Comments Results Result Comments Source - CT CHEST W/O CONTRAST 2019-06-29 10:32:00 Na me: JACK MANZANO [facility] : 1940 Age/S: 79 / M [address] [facility] Unit #: [id number] Loc: [place] [address] Phys: Tg Florez MD Acct: [id number] Dis Date: Status: REG CLI PHONE #: [phone] Exam Date: 06/29/2019927 FAX #: [phone] Reason: LUNG NODULE FU EXAMS: CPT CODE: [id number] CT CHEST W/O CONTRAST 93660 REASON FOR EXAM: LUNG NODULE FU EXAM [...] 1 Signed Report (CONTINUED) Name: JACK MANZANO [facility] : 1940 Age/S: 79 / M [address] [facility] Unit #: [id number] Loc: [place] [address] Phys: Tg Florez MD Acct: [id number] Dis Date: Status: REG CLI PHONE #: [phone] Exam Date: 06/29/2019927 FAX #: [phone] Reason: LUNG NODULE FU EXAMS: CPT CODE: [id number] CT CHEST W/O CONTRAST 74403 <Continued> is unchanged from the previous exam [...] (1032) t.SDR.RR31 Orig Print D/T: S: 06/29/2019 (3978) PAGE 2 Signed Report COMPREHENSIVE METABOLIC PANEL [...] reference range due to change in reagent. [id number] 17:22:00* Test Item Value Reference Range Interpretation Comments MAGNESIUM (test code = MAG) 2.1 mg/dL 1.8-2.4 N THYROID PROFILE [id number] 17:22:00* Test Item Value Reference Range Interpretation [...] HYPER : < 0.35 mIU/mL COMPREHENSIVE METABOLIC [id number] 17:06:00* Test Item Value Reference Range Interpretation [...] TOTAL (test code = ALKP) IUnit/L 45-117 [id number] 17:06:00* Test Item Value Reference Range Interpretation Comments MAGNESIUM (test code = MAG) mg/dL 1.8-2.4 THYROID PROFILE [id number] 17:06:00* Test Item Value Reference Range Interpretation Comments T3 UPTAKE (test code = T3UP) % 30.0-40.0 T4 (THYROXINE) (test code = T4) ug/dL 4.5-13.9 T7 (FREE THYROXINE INDEX) (test code = T7) FTI 1.3-5.1 THYROID STIMULATING HORMONE (test code = TSH) uIU/mL 0.36-3.7 4 CBC W/AUTO [id number] 16:41:00* Test Item Value Reference Range Interpretation [...] (test code = MDIFF) NO BASIC METABOLIC [id number] 17:15:00* Test Item Value Reference Range Interpretation [...] code = CA) 8.8 mg/dL 8.5-10.1 N [id number] 17:15:00* Test Item Value Reference Range Interpretation Comments MAGNESIUM (test code = MAG) 2.2 mg/dL 1.8-2.4 N THYROID PROFILE [id number] 17:15:00* Test Item Value Reference Range Interpretation [...] HYPER : < 0.35 mIU/mL BASIC METABOLIC [id number] 17:01:00* Test Item Value Reference Range Interpretation [...] CALCIUM (test code = CA) mg/dL 8.5-10.1 [id number] 17:01:00* Test Item Value Reference Range Interpretation Comments MAGNESIUM (test code = MAG) mg/dL 1.8-2.4 THYROID PROFILE [id number] 17:01:00* Test Item Value Reference Range Interpretation Comments T3 UPTAKE (test code = T3UP) % 30.0-40.0 T4 (THYROXINE) (test code = T4) ug/dL 4.5-13.9 T7 (FREE THYROXINE INDEX) (test code = T7) FTI 1.3-5.1 THYROID STIMULATING HORMONE (test code = TSH) uIU/mL 0.36-3.7 4 COMPREHENSIVE METABOLIC [id number] 06:34:00* Test Item Value Reference Range Interpretation [...] due to change in reagent. COMPREHENSIVE METABOLIC [id number] 06:14:00* Test Item Value Reference Range Interpretation [...] code = ALKP) IUnit/L 45-117 CBC W/AUTO [id number] 05:33:00* Test Item Value Reference Range Interpretation [...] (test code = MDIFF) NO CBC W/AUTO [id number] 07:30:00* Test Item Value Reference Range Interpretation [...] = MDIFF) NO, ONLY SCAN NEEDED DIFFERENTIAL [id number] 07:30:00* Test Item Value Reference Range Interpretation [...] code = PLTMORPH) SIZE VARIABLE COMPREHENSIVE METABOLIC [id number] 04:36:00* Test Item Value Reference Range Interpretation [...] due to change in reagent. COMPREHENSIVE METABOLIC [id number] 04:23:00* Test Item Value Reference Range Interpretation [...] code = ALKP) IUnit/L 45-117 CBC W/AUTO [id number] 04:13:00* Test Item Value Reference Range Interpretation [...] = MDIFF) NO, ONLY SCAN NEEDED DIFFERENTIAL [id number] 04:13:00* Test Item Value Reference Range Interpretation Comments STAIN ACCEPTABILITY (test code = STN ACCEPTABLE) CABOT RINGS (test code = CAB) MORPHOLOGY COMMENT (test code = MOC) PLATELET ESTIMATE (test code = PLTEST) PLATELET MORPHOLOGY (test code = PLTMORPH) CBC W/AUTO [id number] 04:13:00* Test Item Value Reference Range Interpretation [...] = MDIFF) NO, ONLY SCAN NEEDED DIFFERENTIAL [id number] 04:13:00* Test Item Value Reference Range Interpretation Comments STAIN ACCEPTABILITY (test code = STN ACCEPTABLE) CABOT RINGS (test code = CAB) MORPHOLOGY COMMENT (test code = MOC) PLATELET ESTIMATE (test code = PLTEST) PLATELET MORPHOLOGY (test code = PLTMORPH) CBC W/AUTO [id number] 04:13:00* Test Item Value Reference Range Interpretation [...] = MDIFF) NO, ONLY SCAN NEEDED DIFFERENTIAL [id number] 04:13:00* Test Item Value Reference Range Interpretation Comments STAIN ACCEPTABILITY (test code = STN ACCEPTABLE) MORPHOLOGY COMMENT (test code = MOC) PLATELET ESTIMATE (test code = PLTEST) PLATELET MORPHOLOGY (test code = PLTMORPH) CBC W/AUTO [id number] 04:13:00* Test Item Value Reference Range Interpretation [...] = MDIFF) NO, ONLY SCAN NEEDED DIFFERENTIAL [id number] 04:13:00* Test Item Value Reference Range Interpretation Comments STAIN ACCEPTABILITY (test code = STN ACCEPTABLE) CABOT RINGS (test code = CAB) MORPHOLOGY COMMENT (test code = MOC) PLATELET ESTIMATE (test code = PLTEST) PLATELET MORPHOLOGY (test code = PLTMORPH) CBC W/MANUAL [id number] 06:45:00* Test Item Value Reference Range Interpretation [...] IMMAT) 0 % 0-0 N CBC W/MANUAL [id number] 05:32:00* Test Item Value Reference Range Interpretation [...] MORPHOLOGY (test code = PLTMORPH) CBC W/MANUAL [id number] 05:32:00* Test Item Value Reference Range Interpretation [...] MORPHOLOGY (test code = PLTMORPH) CBC W/MANUAL [id number] 05:32:00* Test Item Value Reference Range Interpretation [...] MORPHOLOGY (test code = PLTMORPH) CBC W/MANUAL [id number] 05:32:00* Test Item Value Reference Range Interpretation [...] MORPHOLOGY (test code = PLTMORPH) CBC W/MANUAL [id number] 05:32:00* Test Item Value Reference Range Interpretation [...] MORPHOLOGY (test code = PLTMORPH) COMPREHENSIVE METABOLIC [id number] 05:28:00* Test Item Value Reference Range Interpretation [...] due to change in reagent. COMPREHENSIVE METABOLIC [id number] 05:18:00* Test Item Value Reference Range Interpretation [...] (test code = ALKP) IUnit/L 45-117 URINALYSIS [id number] 19:30:00* Test Item Value Reference Range Interpretation [...] = FESAT) 15.69 % 13-45 N VITAMIN [id number] 10:09:00* Test Item Value Reference Range Interpretation Comments VITAMIN B12 (test code = VITB12) 4023 pg/mL 193-986 H FOLIC [id number] 10:09:00* Test Item Value Reference Range Interpretation Comments FOLIC ACID (test code = FOL) 17.0 ng/mL 3.10-17.50 N [id number] 10:09:00* Test Item Value Reference Range Interpretation Comments FERRITIN (test code = MARIA E) 129 ng/mL 8-388 N CBC W/AUTO [id number] 09:13:00* Test Item Value Reference Range Interpretation [...] = MDIFF) NO, ONLY SCAN NEEDED DIFFERENTIAL [id number] 09:13:00* Test Item Value Reference Range Interpretation Comments STAIN ACCEPTABILITY (test code = STN ACCEPTABLE) STAIN ACCEPTABLE HYPOCHROMIA (test code = HYPO) 1+ PLATELET ESTIMATE (test code = PLTEST) DECREASED PLATELET MORPHOLOGY (test code = PLTMORPH) NORMAL - XR CHEST 2 [id number] 09:08:00 FAX: Charan Mcneal MD [phone] [place]: St: ADM FAX: Tg [place] [phone] Name: JACK MANZANO [facility] : 1940 Age/S: 78/M [address] [facility] Unit #: [id number] Loc: [place] [address] Phys: Charan Ardon MD Acct: [id number] Dis Date: Status: ADM IN PHONE #: [phone] Exam Date: 12/30/2018 08 FAX #: [phone] Reason: PNMEUMONIA F/U EXAMS: CPT CODE: [id number] XR CHEST 2 V 11650 REASON FOR EXAM: PNMEUMONIA F/U Exam Order [...] MemoRR31 PAGE 1 Signed Report CBC W/AUTO [id number] 08:43:00* Test Item Value Reference Range Interpretation [...] = MDIFF) NO, ONLY SCAN NEEDED DIFFERENTIAL [id number] 08:43:00* Test Item Value Reference Range Interpretation Comments STAIN ACCEPTABILITY (test code = STN ACCEPTABLE) CABOT RINGS (test code = CAB) MORPHOLOGY COMMENT (test code = MOC) PLATELET ESTIMATE (test code = PLTEST) PLATELET MORPHOLOGY (test code = PLTMORPH) CBC W/AUTO [id number] 08:43:00* Test Item Value Reference Range Interpretation [...] = MDIFF) NO, ONLY SCAN NEEDED DIFFERENTIAL [id number] 08:43:00* Test Item Value Reference Range Interpretation Comments STAIN ACCEPTABILITY (test code = STN ACCEPTABLE) CABOT RINGS (test code = CAB) MORPHOLOGY COMMENT (test code = MOC) PLATELET ESTIMATE (test code = PLTEST) PLATELET MORPHOLOGY (test code = PLTMORPH) CBC W/AUTO [id number] 08:43:00* Test Item Value Reference Range Interpretation [...] = MDIFF) NO, ONLY SCAN NEEDED DIFFERENTIAL [id number] 08:43:00* Test Item Value Reference Range Interpretation Comments STAIN ACCEPTABILITY (test code = STN ACCEPTABLE) MORPHOLOGY COMMENT (test code = MOC) PLATELET ESTIMATE (test code = PLTEST) PLATELET MORPHOLOGY (test code = PLTMORPH) CBC W/AUTO [id number] 08:43:00* Test Item Value Reference Range Interpretation [...] = MDIFF) NO, ONLY SCAN NEEDED DIFFERENTIAL [id number] 08:43:00* Test Item Value Reference Range Interpretation Comments STAIN ACCEPTABILITY (test code = STN ACCEPTABLE) CABOT RINGS (test code = CAB) MORPHOLOGY COMMENT (test code = MOC) PLATELET ESTIMATE (test code = PLTEST) PLATELET MORPHOLOGY (test code = PLTMORPH) BASIC METABOLIC [id number] 08:21:00* Test Item Value Reference Range Interpretation [...] code = CA) 7.7 mg/dL 8.5-10.1 L [id number] 08:21:00* Test Item Value Reference Range Interpretation Comments MAGNESIUM (test code = MAG) 1.9 mg/dL 1.8-2.4 N [id number] 10:52:00* Test Item Value Reference Range Interpretation Comments AMMONIA (test code = AMM) 14 umol/L 11-32 N LACTIC [id number] 05:53:00* Test Item Value Reference Range Interpretation Comments LACTIC ACID (test code = LACT) 1.5 mmol/L 0.4-1.9 N CBC W/MANUAL [id number] 03:52:00* Test Item Value Reference Range Interpretation [...] = IMMAT) 0 % 0-0 N CPK-MB [id number] 03:18:00* Test Item Value Reference Range Interpretation [...] not valid with a normal total CK. V.LAB.[facility] 12/29/18 [id number] 03:18:00* Test Item Value Reference Range Interpretation Comments TROPONIN-I (test code = TROPI) 0.145 ng/mL 0-0.045 HH RESULT VERIFIED BY REPEAT ANALYSIS V.LAB.[facility] 12/29/18 0046COMPREHENSIVE METABOLIC [id number] 03:17:00* Test Item Value Reference Range Interpretation [...] due to change in reagent. CBC W/MANUAL [id number] 02:45:00* Test Item Value Reference Range Interpretation [...] MORPHOLOGY (test code = PLTMORPH) CBC W/MANUAL [id number] 02:43:00* Test Item Value Reference Range Interpretation [...] MORPHOLOGY (test code = PLTMORPH) CBC W/MANUAL [id number] 02:43:00* Test Item Value Reference Range Interpretation [...] MORPHOLOGY (test code = PLTMORPH) CBC W/MANUAL [id number] 02:43:00* Test Item Value Reference Range Interpretation [...] MORPHOLOGY (test code = PLTMORPH) CBC W/MANUAL [id number] 02:43:00* Test Item Value Reference Range Interpretation [...] PLATELET MORPHOLOGY (test code = PLTMORPH) CPK-MB [id number] 17:00:00* Test Item Value Reference Range Interpretation [...] not valid with a normal total CK. [id number] 17:00:00* Test Item Value Reference Range Interpretation Comments TROPONIN-I (test code = TROPI) 0.123 ng/mL 0-0.045 HH Results called to [id number] by VConmioLAB.KP1 12/28/18 1700Critical results verified and read back by Nurse? Y CBC W/MANUAL [id number] 13:34:00* Test Item Value Reference Range Interpretation [...] = IMMAT) 0 % 0-0 N [facility] 12/28/18 0324CBC W/MANUAL [id number] 11:14:00* Test Item Value Reference Range Interpretation [...] PLATELET MORPHOLOGY (test code = PLTMORPH) [facility] 12/28/18 0324CBC W/MANUAL [id number] 11:14:00* Test Item Value Reference Range Interpretation [...] PLATELET MORPHOLOGY (test code = PLTMORPH) [facility] 12/28/18 0324CBC W/MANUAL [id number] 11:14:00* Test Item Value Reference Range Interpretation [...] PLATELET MORPHOLOGY (test code = PLTMORPH) BY [facility] 12/28/18 0324CBC W/MANUAL [id number] 11:14:00* Test Item Value Reference Range Interpretation [...] PLATELET MORPHOLOGY (test code = PLTMORPH) [facility] 12/28/18 0324CBC W/MANUAL [id number] 11:14:00* Test Item Value Reference Range Interpretation [...] (test code = PLTMORPH) BY [facility] 12/28/18 [id number] 11:09:00* Test Item Value Reference Range Interpretation Comments AMMONIA (test code = AMM) 11 umol/L 11-32 N LACTIC [id number] 09:29:00* Test Item Value Reference Range Interpretation Comments LACTIC ACID (test code = LACT) 2.6 mmol/L 0.4-1.9 Results called to [id number] by V.LABJennyDRP 12/28/18 0929Critical results verified and read back by Nurse? Y COMPREHENSIVE METABOLIC [id number] 09:26:00* Test Item Value Reference Range Interpretation [...] reference range due to change in reagent. [id number] 09:26:00* Test Item Value Reference Range Interpretation Comments LIPASE (test code = LIP) 14 U/L 73.0-393.0 L COMPREHENSIVE METABOLIC [id number] 09:20:00* Test Item Value Reference Range Interpretation [...] TOTAL (test code = ALKP) IUnit/L 45-117 [id number] 09:20:00* Test Item Value Reference Range Interpretation Comments LIPASE (test code = LIP) U/L 73.0-393.0 [id number] 17:09:00* Test Item Value Reference Range Interpretation Comments TROPONIN-I (test code = TROPI) 0.056 ng/mL 0-0.045 HH Results called to ELIZA/AMO1035ec V.LAB.SPR 12/27/18 1709Critical results verified and read back by Nurse? Y COMMENTS TO METALLURGICAL LAB TECHNICIAN: COLLECT 3 HOURS AFTER PREVIOUS SAMPLE- US ABDOMEN [id number] 16:45:00 Name: JACK MANZANO [facility] : 1940 Age/S: 78 / M [address] [facility] Unit #: [id number] Loc: [place] [address] Phys: Charan Ardon MD Acct: [id number] Dis Date: Status: ADM IN PHONE #: [phone] Exam Date: 12/27/2018 1635 FAX #: [phone] Reason: CHOLELITHIASIS? VOMITTING EXAMS: CPT CODE: [id number] US ABDOMEN COMPLETE 85905 EXAM: Ultrasound of the abdomen; INFORMATION: Vomiting, [...] represent a nonobstructing peripheral calyceal stone. at 6299 Repor chelsea and signed by: Sebas Edwards M.D. CC: Charan Ardon MD; Dr. Gideon Florez Technologist: Berenice Chávez RDMS [facility] Date/Time: 12/27/2018 (2605) tCOLTON Orig Print D/T: S: 12/27/2018 (9360) Probe: PAGE 1 Signed Report PROCALCITONIN (PCT)2018-12-27 [...] the patients history. SPECIMEN COMMENTS: ADD ONLACTIC [id number] 15:30:00* Test Item Value Reference Range Interpretation Comments LACTIC ACID (test code = LACT) 2.3 mmol/L 0.4-1.9 HH Results called to by V.LAB.SPR 12/27/18 1530Critical results verified and read back by Nurse? Y [id number] 15:26:00* Test Item Value Reference Range Interpretation Comments TROPONIN-I (test code = TROPI) 0.043 ng/mL 0-0.045 N COMMENTS TO METALLURGICAL LAB TECHNICIAN: COLLECT 3 HOURS AFTER PREVIOUS SAMPLELACTIC [id number] 11:49:00* Test Item Value Reference Range Interpretation Comments LACTIC ACID (test code = LACT) 2.0 mmol/L 0.4-1.9 H Results called to MANJIT YAH0983fx V.LAB.GP 12/27/18 1148Critical results verified and read back by Nurse? Y URINALYSIS [id number] 11:37:00* Test Item Value Reference Range Interpretation [...] SEEN #/HPF NONE Urine Source? Clean CatchURINALYSIS [id number] 11:36:00* Test Item Value Reference Range Interpretation [...] Urine Source? Clean Catch- CT ABD PELVIS [id number] 10:47:00 Name: JACK MANZANO [facility] : 1940 Age/S: 78 / M [address] [facility] Unit #: [id number] Loc: [place] [address] Phys: Ronald Bonilla MD Acct: [id number] Di s Date: Status: REG ER PHONE #: Exam Date: 12/27/2018 1020 FAX #: Reason: vomiting EXAMS: CPT CODE: [id number] CT ABD PELVIS W/CONT 94934 REASON FOR EXAM: vomiting EXAM ORDER DATE: 12/27/2018 10:07 AM Ordering M.DJenny: Tawnya Bonilla MD PROCEDURE: - CT ABD PELVIS W/CONT [...] 1 Signed Report (CONTINUED) Name: JACK MANZANO [facility] : 1940 Age/S: 78 / M [address] [facility] Unit #: [id number] Loc: [place] [address] Phys: Tawnya Bonilla MD Acct: [id number] Dis Date: Status: REG ER PHONE #: [phone] Exam Date: 12/27/2018 1020 FAX #: [phone] Reason: vomiting EXAMS: CPT CODE: [id number] ABD PELVIS W/CONT 10448 < Continued> Peritoneum and retroperitoneum: No free [...] Yarbrough RT(R),(MR),(CT); CTDI: DLP: Trnscb Date/Time: 12/27/2018 (9567) t.SDR.RR31 Orig Print D/T: S: 12/27/2018 (8637) PAGE 2 Signed Report - CT C-SPINE W/O CONTRAST 2018-12-27 10:26:00 Name: JACK MANZANO [facility] : 1940 Age/S: 78 / M [address] [facility] Unit #: [id number] Loc: [place] [address] Phys: Tawnya Bonilla MD Acct: [id number] Dis Date: Status: REG ER PHONE #: [phone] Exam Date: 12/27/2018 1020 FAX #: [phone] Reason: fall EXAMS: CPT CODE: [id number] CT C-SPINE W/O CONTRAST 36419 REASON FOR EXAM: fall EXAM ORDER DATE: [...] (1026) tEDUARDO Orig Print D/T: S: 12/27/2018 (2674) PAGE 1 Signed Report - CT HEAD/BRAIN W/O [id number] 10:25:00 Name: JACK MANZANO [facility] : 1940 Age/S: 78 / M [address] [facility] Unit #: [id number] Loc: [place] [address] Phys: Tawnya Bonilla MD Acct: [id number] Dis Date: Status: REG ER PHONE #: [phone] Exam Date: 12/27/2018 1020 FAX #: [phone] Reason: fall EXAMS: CPT CODE: [id number] CT HEAD/BRAIN W/O CONT 29767 REASON FOR EXAM: fall EXAM ORDER DATE: [...] Yarbrough RT(R),(MR),(CT); CTDI: DLP: Trnscb Date/Time: 12/27/2018 (0481) t.SDR.VTL Orig Print D/T: S: 12/27/2018 (8493) PAGE 1 Signed Report B-TYPE NATRIURETIC [id number] 10:22:00* Test Item Value Reference Range Interpretation Comments B-TYPE NATRIURETIC PEPTIDE (test code = BNP) 172.93 pgram/mL 0-100 H - XR CHEST 1 [id number] 10:10:00 FAX: Tg Pierre [phone] [place]: B St: REG FAX: Tawnya Christina [phone] Name: JACK MANZANO [facility] : 1940 Age/S: 78/M [address] [facility] Unit #: [id number] Loc: [place] [address] Phys: Tawnya Bonilla MD Acct: [id number] Dis Date: Status: REG ER PHONE #: [phone] Exam Date: 12/27/2018 1005 FAX #: [phone] Reason: CODE SEPSIS EXAMS: CPT CODE: [id number] XR CHEST 1 V 97501 REASON FOR EXAM: CODE SEPSIS Exam Order [...] 12/27/2018 (1014) PAGE 1 Signed Report PROTHROMBIN [id number] 09:58:00* Test Item Value Reference Range Interpretation [...] (2.5-3.5) IS PATIENT ON ANTICOAGULANTS? NTHROMBOPLASTIN TIME [id number] 09:58:00* Test Item Value Reference Range Interpretation Comments THROMBOPLASTIN TIME PARTIAL (test code = PTT) 26.7 seconds 25.0-36. 5 N IS PATIENT ON ANTICOAGULANTS? NBASIC METABOLIC [id number] 09:52:00* Test Item Value Reference Range Interpretation [...] CA) 8.3 mg/dL 8.5-10.1 L HEPATIC FUNCTION [id number] 09:52:00* Test Item Value Reference Range Interpretation [...] reference range due to change in reagent. [id number] 09:52:00* Test Item Value Reference Range Interpretation Comments LIPASE (test code = LIP) 143 U/L 73.0-393.0 N [id number] 09:52:00* Test Item Value Reference Range Interpretation Comments TROPONIN-I (test code = TROPI) <0.015 ng/mL 0-0.045 N LACTIC [id number] 09:51:00* Test Item Value Reference Range Interpretation Comments LACTIC ACID (test code = LACT) 4.5 mmol/L 0.4-1.9 HH Results called to DR BONILLA by HALLE 12/27/18 0951Critical results verified and read back by Nurse? Y [id number] 09:43:00* Test Item Value Reference Range Interpretation Comments AMMONIA (test code = AMM) 33 umol/L 11-32 H BASIC METABOLIC [id number] 09:42:00* Test Item Value Reference Range Interpretation [...] code = CA) mg/dL 8.5-10.1 HEPATIC FUNCTION [id number] 09:42:00* Test Item Value Reference Range Interpretation [...] TOTAL (test code = ALKP) IUnit/L 45-117 [id number] 09:42:00* Test Item Value Reference Range Interpretation Comments LIPASE (test code = LIP) U/L 73.0-393.0 [id number] 09:42:00* Test Item Value Reference Range Interpretation Comments TROPONIN-I (test code = TROPI) ng/mL 0-0.045 CBC W/AUTO [id number] 09:31:00* Test Item Value Reference Range Interpretation [...] NRBC#) 0.00 K/mm3 0.0-0.1 N POC LACTIC [id number] 09:26:00* Test Item Value Reference Range Interpretation Comments POC LACTIC ACID (test code = POCLAC) 4.57 MMOL/L 0.4-2.2 H - XR HAND 3 + V [id number] 15:44:00 FAX: Tg Pierre [phone] [place]: O St: REG Name: JACK ABARCA [facility] : [birth year] Age/S: 78/M [address] Unit #: [id number] Loc: [place] [address] Phys: Tg Florez MD Acct: [id number] Dis Date: Status: REG CLI PHONE #: [phone] Exam Date: 09/27/2018 1521 FAX #: [phone] Reason: INJURY EXAMS: CPT CODE: [id number] XR HAND 3 + [place] [address] REASON FOR EXAM: INJURY EXAM ORDER DATE: [...] 5th PIP. No acute osseous abnormality at 6020 Reported and signed by: Omid Villalba M.D. CC: Dr. Tg Florez Technologist: Lea Lao RT(R) Trnscrd Date/Time/By: 09/27/2018 (8549) : By: Alana Orig Print D/T: S: 09/27/2018 (8757) PAGE 1 Signed Report - XR WRIST 3 + V [id number] 15:42:00 FAX: Tg Pierre [phone] [place]: O St: REG Name: JACK ABARCA [facility] : [birth year] Age/S: 78/M [address] Unit #: [id number] Loc: [place] [address] Phys: Tg Florez MD Acct: [id number] Dis Date: Status: REG CLI PHONE #: [phone] Exam Date: 09/27/2018 1521 FAX #: [phone] Reason: EXAMS: CPT CODE: [id number] XR WRIST 3 + V LT [address] REASON FOR EXAM: EXAM ORDER DATE: 09/27/2018 [...] osseous abnormality Electronicall y Signed by Jael iVllalba on 09/27/2018 at 1548 Reported and signed by: Omid Villalba M.D. CC: Dr. Tg Florez Technologist: RT Berry(David) Trnpacorey Date/Time/By: 09/27/2018 (3305) : By: Alana Orig Print D/T: S: 09/27/2018 (7301) PAGE 1 Signed Report - XR WRIST 3 + V LT 2018-05-02 12:17:00 FAX: Tg Pierre [phone] [place]: O St: REG FAX: Y Ashwin Elder MD [phone] Name: JACK MANZANO [facility] : 1940 Age/S: 78/M [address] [facility] Unit #: [id number] Loc: [place] [address] Phys: Ashwin Elder MD Acct: [id number] Dis Date: Status: REG RCR PHONE #: [phone] Exam Date: 05/02/2018 1207 FAX #: [phone] Reason: LT HAND CYST EXAMS: CPT CODE: [id number] XR WRIST 3 + [place] [address] HISTORY: Left hand cyst. COMPARISON: None available. [...] y: [email or web address] Orig Print D/T: S: 05/02/2018 (6538) PAGE 1 Signed Report - XR HAND 3 + V [id number] 12:17:00 FAX: Tg Pierre [phone] [place]: O St: REG FAX: Ashwin Kent MD [phone] Name: JACK MANZANO [facility] : 1940 Age/S: 78/M [address] [facility] Unit #: [id number] Loc: [place] [address] Phys: Ashwin Elder MD Acct: [id number] Dis Date: Status: REG RCR PHONE #: [phone] Exam Date: 05/02/2018 1207 FAX #: [phone] Reason: LT HAND CYST EXAMS: CPT CODE: [id number] XR HAND 3 + [place] LT [address] HISTORY: Left hand cyst. COMPARISON: None available. [...] MD Technologist: David Smart(David) Trnscrd Date/Time/By: 05/02/2018 (9245) : B y: [email or web address] Orig Print D/T: S: 05/02/2018 (4844) PAGE 1 Signed Report White Blood [id number] 11:42:00* Test Item Value Reference Range Interpretation Comments White Blood Count (test code = 6690-2) 3.70 4.8-10.8 L [facility] [id number] 11:42:00* Test Item Value Reference Range Interpretation Comments Red Blood Count (test code = 789-8) 4.08 4.3-5.7 L [facility]2017-09-12 11:42:00* Test Item Value Reference Range Interpretation Comments Hemoglobin (test code = 31576-4) 13.3 14.0-18.0 L [facility]ematocrit2017-09-12 11:42:00* Test Item Value Reference Range Interpretation Comments Hematocrit (test code = 4544-3) 38.3 38.2-49.6 [facility] Corpuscular [id number] 11:42:00* Test Item Value Reference Range Interpretation Comments Mean Corpuscular Volume (test code = 787-2) 93.9 81-99 [facility] Corpuscular [id number] 11:42:00* Test Item Value Reference Range Interpretation Comments Mean Corpuscular Hemoglobin (test code = 785-6) 32.6 28-32 H [facility] Corpuscular Hemoglobin Concent 2016-12-15 11:42:00* Test Item Value Reference Range Interpretation Comments Mean Corpuscular Hemoglobin Concent (test code = 786-4) 34.7 31-35 [facility] Cell Distribution [id number] 11:42:00* Test Item Value Reference Range Interpretation Comments Red Cell Distribution Width (test code = 74556-6) 14.4 11.7 -14.4 [facility] ArlingtonPlatelet [id number] 11:42:00* Test Item Value Reference Range Interpretation Comments Platelet Count (test code = 777-3) 135 140-360 L [facility] ArlingtonNeutrophils (%) (Auto)2016-12-15 11:42:00 * Test Item Value Reference Range Interpretation Comments Neutrophils (%) (Auto) (test code = 31425-0) 63.0 38.7-80.0 [facility] ArlingtonLymphocytes (%) (Auto)2016-12-15 11:42:00 * Test Item Value Reference Range Interpretation Comments Lymphocytes (%) (Auto) (test code = 736-9) 19.5 18.0-39.1 [facility] (%) (Auto)2016-12-15 11:42:00* Test Item Value Reference Range Interpretation Comments Monocytes (%) (Auto) (test code = 5905-5) 13.8 4.4-11.3 H [facility]Eosinophils (%) (Auto)2016-12-15 11:42:00 * Test Item Value Reference Range Interpretation Comments Eosinophils (%) (Auto) (test code = 713-8) 2.4 0.0-6.0 [facility] (%) (Auto)2016-12-15 11:42:00* Test Item Value Reference Range Interpretation Comments Basophils (%) (Auto) (test code = 706-2) 0.8 0.0-1.0 [facility] GRANULOCYTES %2016-12-15 11:42:00* Test Item Value Reference Range Interpretation Comments IM GRANULOCYTES % (test code = IM GRANULOCYTES %) 0.5 0.0- 1.0 [facility]Neutrophils # (Auto)2016-12-15 11:42:00* Test Item Value Reference Range Interpretation Comments Neutrophils # (Auto) (test code = 751-8) 2.3 2.1-6.9 [facility] ArlingtonLymphocytes # (Auto)2016-12-15 11:42:00* Test Item Value Reference Range Interpretation Comments Lymphocytes # (Auto) (test code = 83518-4) 0.7 1.0-3.2 L [facility]Monocytes # (Auto)2016-12-15 11:42:00* Test Item Value Reference Range Interpretation Comments Monocytes # (Auto) (test code = 742-7) 0.5 0.2-0.8 [facility]Eosinophils # (Auto)2016-12-15 11:42:00* Test Item Value Reference Range Interpretation Comments Eosinophils # (Auto) (test code = 711-2) 0.1 0.0-0.4 [facility]ophils # (Auto)2016-12-15 11:42:00* Test Item Value Reference Range Interpretation Comments Basophils # (Auto) (test code = 704-7) 0.0 0.0-0.1 [facility] ArlingtonAbsolute Immature Granulocyte (auto 2016-12-15 11:42:00* Test Item Value Reference Range Interpretation Comments Absolute Immature Granulocyte (auto (ino t code = Absolute Immature Granulocyte (auto) 0.02 0-0.1 [facility]
--- NOTE | 2019-11-26 21:48 | Diagnostic Imaging Report ---
EXAM: CT Abdomen and Pelvis WITH contrast INDICATION: Abdominal pain, constipation COMPARISON: None. TECHNIQUE: Abdomen and pelvis were scanned utilizing a multidetector helical scanner from the lung base to the pubic symphysis after administration of IV contrast. Coronal and sagittal reformations were obtained. Routine protocol was performed. Scan was performed when during portal venous phase. IV CONTRAST: 100 mL of Isovue 370 ORAL CONTRAST: None COMPLICATIONS: None RADIATION DOSE: Total DLP: 247 mGy*cm Estimated effective dose: (DLP x 0.015 x size factor) mSv CTDIvol has been reviewed. It is below the limits set by the Radiation Protocol Committee (RPC). Dose modulation, iterative reconstruction, and/or weight based adjustment of the mA/kV was utilized to reduce the radiation dose to as low as reasonably achievable. FINDINGS: LINES and TUBES: Partially visualized cardiac device leads in the right atrium and right ventricle. Mitral annular and aortic valve calcifications.. LOWER THORAX: Tree-in-bud and nodular groundglass opacities in the left lung base. HEPATOBILIARY: A dependent round hyperdensity within the distal common bile duct (series 301 image 36, series 300 image 49, series 2 image 21). Proximal to this hyperdensity the common bile duct is 1.3 cm dilated. Mild intrahepatic biliary ductal dilation. Nodular hepatic surface contour. No focal hepatic lesions. GALLBLADDER: Mildly distended. No radio-opaque stones or sludge. No wall thickening. SPLEEN: Mild splenomegaly. PANCREAS: Pancreas atrophy and dilated duct. Pancreatic head calcification. ADRENALS: No adrenal nodules KIDNEYS/URETERS: Kidneys enhance symmetrically. No hydronephrosis. No cystic or solid mass lesions. No stones. GI TRACT: Surgical changes of antecolic Jose F-en-Y gastric bypass. No abnormal distention, wall thickening, or evidence of bowel obstruction. Moderate colonic stool volume. No evidence of appendicitis.. PELVIC ORGANS/BLADDER: Unremarkable. LYMPH NODES: No lymphadenopathy. VESSELS: Arterial calcifications. PERITONEUM / RETROPERITONEUM: No free air or fluid. BONES: Advanced degenerative changes. Stable L1 compression fracture compared to report from 09/05/[address] Bilateral L5 inferior pars defects with mild anterolisthesis of L5 on S1. Osseous demineralization. SOFT TISSUES: Unremarkable. IMPRESSION: 1. Left lower lobe pneumonia. 2. Findings compatible with distal biliary obstruction due to choledocholithiasis in the distal common bile duct, with mild intrahepatic biliary ductal dilation and gallbladder distention. Correlate with lab values. Recommend right upper quadrant. 3. Pancreatic duct dilation can be due to pancreatic atrophy or due to distal pancreatic duct obstruction. 4. Colonic findings compatible with constipation. Signed by: Cain Gonzalez DO on 11/26/2019 9:44 PM
[2019-11-26 23:03] LABS: CLARITY,URINE CLEAR (CLEAR); COLOR,URINE YELLOW (YELLOW)
[2019-11-26 23:04] LABS: BILIRUBIN,URINE NEGATIVE (NEGATIVE); KETONES,URINE NEGATIVE (NEGATIVE); LEUKOCYTE ESTERASE ,URINE NEGATIVE (NEGATIVE); NITRITE,URINE NEGATIVE (NEGATIVE); PROTEIN,URINE DIPSTICK NEGATIVE (NEGATIVE); URINE UROBILINOGEN 1 mg/dL (0.2 - 1)
[2019-11-26 23:06] LABS: BACTERIA,URINE RARE /HPF; RBC,URINE 0-5 /HPF (0-5); WBC,URINE (MAN) 0-5 /HPF (0-5)
[2019-11-27] VITALS (9 sets, daily range): BP systolic 100–128; BP diastolic 60–77
--- NOTE | 2019-11-27 01:00 | NUR ---
RECEIVED PATIENT FROM ER IN STABLE CONDITION, NO SIGNS OF DISTRESS NOTED. PATIENT RESTING COMFORTABLY IN BED AND VITALS ARE STABLE. BED IS IN LOWEST POSITION, BOTH SIDE RAILS ARE UP, BED ALARM IS ON, CALL LIGHT IS WITHIN EASY REACH, WILL CONTINUE TO MONITOR.
[2019-11-27] MEDS ORDERED: SOD POLYSTYRENE SULFONATE SUSP 15 GM/60 ML BTL PO ONE (05:30)
--- NOTE | 2019-11-27 07:00 | NUR ---
received bedside report, pt is sleeping supine in bed, no s/s of distress. respiration even and non labored. call light within reach and bed safety in place
[2019-11-27 08:32] LABS: BASOPHILS % 0.3 % (0.0-1.0); EOSINOPHILS % 0.2 % (0.0-6.0); HEMATOCRIT 35.2 % (38.2-49.6); HEMOGLOBIN 11.7 g/dL (14.0-18.0); LYMPHOCYTES # (AUTO) 0.8 (1.0-3.2); LYMPHOCYTES % 8.5 % (18.0-39.1); MEAN CORPUSCULAR HEMOGLOBIN 30.5 pg (28-32); MEAN CORPUSCULAR HGB CONC 33.2 g/dL (31-35); MEAN CORPUSCULAR VOLUME 91.7 fL (81-99); MONOCYTES # (AUTO) 0.9 (0.2-0.8); MONOCYTES % 9.7 % (4.4-11.3); NEUTROPHILS # (AUTO) 7.8 (2.1-6.9); NEUTROPHILS % 80.9 % (38.7-80.0); PLATELET COUNT 101 x10e3/uL (140-360); RED BLOOD COUNT 3.84 x10e6/uL (4.3-5.7); RED CELL DISTRIBUTION WIDTH 13.9 % (11.7-14.4)
[2019-11-27 09:12] LABS: ALANINE AMINOTRANSFERASE 19 IU/L (0-55); ALBUMIN 3.3 g/dL (3.5-5.0); ALBUMIN/GLOBULIN RATIO 1.1 (0.8-2.0); ALKALINE PHOSPHATASE 69 IU/L (40-150); ANION GAP 13.2 mmol/L (8-16); BLOOD UREA NITROGEN 14 mg/dL (7-26); BUN/CREATININE RATIO 16 (6-25); CALCIUM 8.8 mg/dL (8.4-10.2); CARBON DIOXIDE 25 mmol/L (22-29); CHLORIDE 102 mmol/L (98-107); EST GLOMERULAR FILTRATION RATE > 60 ML/MIN (60-); GLUCOSE 112 mg/dL (74-118); POTASSIUM 4.2 mmol/L (3.5-5.1); SODIUM 136 mmol/L (136-145)
[2019-11-27 09:35] LABS: CREATINE KINASE MB 2.2 ng/mL (0-5.0)
--- NOTE | 2019-11-27 16:54 | Diagnostic Imaging Report ---
EXAM: US ABDOMEN LIMITED DATE: 11/27/2019 3:57 PM INDICATION: Concern for biliary obstruction COMPARISON: CT dated 11/26/2019 TECHNIQUE: Transverse and longitudinal fernandez scale and color doppler sonographic images of the right upper quadrant were obtained. FINDINGS: Limited evaluation. Overlying bowel gas is noted. Patient is not NPO. LIVER 14.6 cm in the right midclavicular line. Coarsened echogenicity with nodular contours. GALLBLADDER No gallbladder wall thickening, distension, stone, or pericholecystic fluid. Negative reported sonographic Goins's sign. BILE DUCTS Moderate central intrahepatic biliary dilatation and central common hepatic duct dilatation. Common bile duct measures 0.7cm PANCREAS: Not well visualized RIGHT KIDNEY: 8.8 cm Echogenicity: Normal Collecting System: No hydronephrosis Stones: None Cyst/Mass: None VESSELS: Aorta: Visualized portions are within normal size limits Inferior Vena Cava: Visualized portions are normal Main Portal Vein: 1.5 cm, normal size with hepatopetal flow. FREE FLUID: None IMPRESSION: Limited evaluation. Moderate central intrahepatic biliary dilatation. CBD measures up to 0.7 cm. No common bile duct stone by ultrasound technique. Signed by: Rony Florez MD on 11/27/2019 4:51 PM
--- NOTE | 2019-11-27 17:46 | NUR ---
RN collected blood for cardiac labs and took to lab
[2019-11-27] MEDS ORDERED: POLYETHYLENE GLYCOL 3350 17 GM PACK PO PRN (18:15)
[2019-11-27] MEDS ORDERED: ONDANSETRON HCL INJ 2MG/ML 2ML 2 MG/ML VIAL IV PRN (18:15)
[2019-11-27] MEDS ORDERED: HYDRALAZINE HCL 20 MG/ML VIAL IV PRN (18:15)
[2019-11-27] MEDS ORDERED: ACETAMINOPHEN 325 MG TAB PO PRN (18:15)
[2019-11-27 18:20] LABS: CREATINE KINASE MB 2.3 ng/mL (0-5.0)
--- NOTE | 2019-11-27 19:47 | NUR ---
Received pt sitting in bed awake, with no c/o at this time. No s/sx of acute distress noted. Bed in low and locked position, with personal items within reach. Notified pt of pending chest xray order per md. Bedside report done. Will cont to monitor patient.
--- NOTE | 2019-11-27 20:45 | Diagnostic Imaging Report ---
EXAMINATION: CHEST 2 VIEWS INDICATION: Left lower lobe pneumonia. COMPARISON: CT abdomen/pelvis on 11/26/2019. FINDINGS: TUBES and LINES: Double lead cardiac pacemaker. LUNGS: There are multifocal patchy airspace opacities throughout both lung bases compatible with multifocal pneumonia. PLEURA: No pleural effusion or pneumothorax. HEART AND MEDIASTINUM: The cardiomediastinal silhouette is unremarkable. Atherosclerotic calcification of the thoracic aortic arch. BONES AND SOFT TISSUES: No acute osseous lesion. Soft tissues are unremarkable. UPPER ABDOMEN: No free air under the diaphragm. IMPRESSION: Multifocal patchy airspace opacities throughout both lung bases compatible with multifocal pneumonia. Recommend follow-up chest radiographs in 6-8 weeks to ensure resolution. Signed by: Vicky Stover MD on 11/27/2019 8:42 PM
[2019-11-27] MEDS: LACTULOSE SYRUP 20 GM/30 ML UDC PO SCH (21:00)
[2019-11-27] MEDS: CEFTRIAXONE SOD 1 GM/NS 50 ML 50 ML IV SCH (21:00)
[2019-11-27] MEDS ORDERED: SODIUM CHLORIDE 0.9% 250ML 250 ML ONE (21:01)
[2019-11-27] MEDS: OXYCODONE HCL 10 MG TAB CR PO SCH (22:05)
[2019-11-27] MEDS: TEMAZEPAM 15 MG CAP PO PRN (22:15)
--- NOTE | 2019-11-27 22:25 | History and Physical ---
CONSULTING PHYSICIAN: Rocky Eagle MD., with Gastroenterology. PRIMARY CARE PHYSICIAN: Tg Florez MD. CHIEF COMPLAINT: Confused, lower quadrant abdominal pain. HISTORY OF PRESENT ILLNESS: The patient is an 79-year-old male, admitted with lower abdominal pain, which he states was pretty severe on admission. He says that the nausea and vomiting has been going on for about one month off and on. He admits to having history of liver cirrhosis and that he was confused when he came to the emergency department. 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 Chronic back pain with lumbar spondylosis, abnormal thyroid-stimulating hormone level. PAST SURGICAL HISTORY: Half of the stomach removed due to stomach cancer, Achilles tendon repair left leg, permanent pacemaker placement. FAMILY HISTORY: Sons and father both had a disorder in which the hemoglobin was consistently high and required persistent therapeutic blood donation. His mother had cancer of the stomach as well. SOCIAL HISTORY: Denies former history of tobacco or illicit drug use. He admits to heavy alcohol use 15 years ago, but states he has not drank in 5-6 years. ALLERGIES: NO KNOWN ALLERGIES. HOME MEDICATIONS: 1. Lactulose 10 g p.o. t.i.d. 2. OxyContin 30 mg extended release tablet every 8 hours. 3. Xifaxan 550 mg tablet p.o. b.i.d. 4. Sucralfate 1 g b.i.d. REVIEW OF SYSTEMS: A 14-point review of systems was completed. The patient denies any recent history of weight loss or fever. Denies any problems with eyes, ears, nose, and throat. No complaints regarding respiratory, genitourinary, psychiatric, integumentary, cardiovascular, musculoskeletal, neurologic, endocrine, or immunological systems. Denies chest pain or palpitations seen. Does have a permanent pacemaker in place. He states he bruises easily and has bruises on both arms. Gastrointestinal, the last time he had nausea and vomiting was 11/25, had lower abdominal pain on admission, but none now. His last bowel movement was 11/23. OBJECTIVE: VITAL SIGNS: Temperature 98.3, T-max 99.3, pulse 61, blood pressure 103/66, respirations 16, oxygen saturation 99%. Height 5 feet 10 inches, weight 135 pounds, BMI 19.36. GENERAL: Supine in bed. No acute distress. LUNGS: Clear to auscultation. Respiratory pattern even and unlabored. No use of supplemental oxygen. HEENT: EOMI. NECK: Supple. No JVD or thyromegaly. CARDIOVASCULAR: Regular rate and rhythm. Bradycardia noted. No murmur. ABDOMEN: Bowel sounds positive. Soft, nontender. No obvious distention. EXTREMITIES: No pitting edema. No clubbing, cyanosis, or notable swelling or signs of DVT. NEUROLOGICAL: GCS 15. Nonfocal. LABORATORY DATA: On admission, WBCs 11.88, hemoglobin 11.6, hematocrit 35.2, platelets 137. Sodium 131, potassium 5.2, chloride 98, CO2 22, anion gap 16.2, BUN 17, creatinine 0.95, estimated GFR greater than 60. Glucose 91, calcium 8.7, total bilirubin 0.6, AST 45, ALT 20, alkaline phosphatase 71, ammonia level 56. Creatine kinase 144, CK-MB 3.9, troponin I 0.015, total protein 7, albumin 3.7, lipase 7. Urinalysis was negative, rare bacteria, negative for leukocyte esterase, negative for nitrites. Coronavirus PCR is pending. Today, WBCs 9.61, hemoglobin 11.7, hematocrit 35.2, platelets 101. Sodium 136, potassium 4.2, chloride 102, CO2 25, anion gap 13.2, BUN 14, creatinine 0.9, estimated GFR greater than 60, glucose 112, calcium 8.8, total bilirubin 0.8, AST 32, ALT 19, alkaline phosphatase 69. Creatine kinase 80, CK-MB 2.2, troponin I 0.031. Total protein 6.2, albumin 3.3. IMAGING: CT of the abdomen and pelvis was completed yesterday evening per radiologist, impression: 1. Left lower lobe pneumonia. 2. Findings compatible with distal biliary obstruction due to choledocholithiasis in the distal common bile duct with mild intrahepatic biliary ductal dilation and gallbladder distention. 3. Pancreatic duct dilation can be due to pancreatic atrophy or due to distal pancreatic duct obstruction. 4. Colonic findings compatible with constipation. Ultrasound of the abdomen done today showed a limited evaluation moderate central intrahepatic biliary dilation. Common bile duct measured up to 0.7 cm. No common bile duct stone by ultrasound technique. ASSESSMENT/PLAN: 1. Lower quadrants abdominal pain, probable distal biliary obstruction due to a choledocholithiasis. No stone noted on abdominal ultrasound. No MRCP due to permanent pacemaker. Gastroenterology has been consulted. The patient takes OxyContin at home for pain over new this for pain control. 2. Sepsis, present on admission, possibly due to left lower lobe pneumonia (per CT). Rocephin started for left lower lobe pneumonia. WBCs 9.61 (11.88). We will get a chest x-ray, consult Dr. Padron with Pulmonology. 3. Hepatic encephalopathy, liver cirrhosis with anemia and thrombocytopenia. Resume home doses of Xifaxan and lactulose. The patient is awake, alert, oriented to person, place, time, and situation. Total bilirubin 0.8, AST 32 (45). Transaminitis resolved. Ammonia level 56, within normal limits. 4. Acute hyperkalemia, improved. Potassium 4.2 (5.2). Monitor potassium level. 5. Acute hyponatremia, improving. Sodium level 136 (131). Monitor sodium level. 6. Permanent pacemaker in situ. 7. History of stomach cancer with radiation/chemotherapy// of stomach removed. Banana bag started by Gastroenterology for supplemental vitamin B12, folic acid, thiamine, as patient had poor absorption. 8. Chronic low back pain with lumbar spondylosis. Resume home dose of OxyContin. 9. Prophylaxis, Pepcid, sucralfate, SCDs. H and P billing code [id number]. Time spent 60 minutes. Dictated by Elvis Seals NP Tim Lu MD HWP/MODL /[id number]
[2019-11-28] VITALS (9 sets, daily range): BP systolic 90–146; BP diastolic 54–87
[2019-11-28] MEDS ORDERED: BISACODYL 5 MG TAB EC PO ONE ×2 (02:45→03:15)
[2019-11-28] MEDS: PANTOPRAZOLE 40 MG 10ML VIAL IV SCH ×2 (03:00→15:00)
[2019-11-28] MEDS ORDERED: CITRATE OF MAGNESIA 300ML BOTTLE PO ONE (05:00)
[2019-11-28] MEDS: METOCLOPRAMIDE HCL 10 MG/2ML VIAL IV SCH ×4 (06:08→23:39)
[2019-11-28] MEDS: OXYCODONE HCL 10 MG TAB CR PO SCH ×3 (06:09→22:00)
[2019-11-28 06:26] LABS: BASOPHILS % 0.2 % (0.0-1.0); EOSINOPHILS # (AUTO) 0.1 (0.0-0.4); EOSINOPHILS % 1.3 % (0.0-6.0); HEMATOCRIT 36.4 % (38.2-49.6); LYMPHOCYTES # (AUTO) 1.1 (1.0-3.2); LYMPHOCYTES % 24.9 % (18.0-39.1); MEAN CORPUSCULAR HEMOGLOBIN 30.5 pg (28-32); MEAN CORPUSCULAR VOLUME 92.4 fL (81-99); MONOCYTES # (AUTO) 0.6 (0.2-0.8); MONOCYTES % 12.6 % (4.4-11.3); NEUTROPHILS # (AUTO) 2.8 (2.1-6.9); NEUTROPHILS % 60.8 % (38.7-80.0); PLATELET COUNT 99 x10e3/uL (140-360); RED BLOOD COUNT 3.94 x10e6/uL (4.3-5.7)
--- NOTE | 2019-11-28 06:55 | NUR ---
BEDSIDE SBAR REPORT RECEIVED FROM AGA CONTRERAS, PM SHIFT. PT FOUND RESTING IN BED EASILY AROUSED IN NO ACUTE DISTRESS. PT IS ABLE TO MAKE NEEDS KNOWN AND WAS EDUCATED ON FALL RISK PRECAUTIONS. PT VERBALIZED UNDERSTANDING. CALL LIGHT AND BELONGINGS PLACED NEARBY. WILL CONTINUE TO MONITOR.
[2019-11-28 07:08] LABS: ALANINE AMINOTRANSFERASE 17 IU/L (0-55); ALBUMIN 3.4 g/dL (3.5-5.0); ALBUMIN/GLOBULIN RATIO 1.1 (0.8-2.0); ALKALINE PHOSPHATASE 74 IU/L (40-150); ANION GAP 16.6 mmol/L (8-16); BLOOD UREA NITROGEN 19 mg/dL (7-26); BUN/CREATININE RATIO 22 (6-25); CALCIUM 8.6 mg/dL (8.4-10.2); CARBON DIOXIDE 21 mmol/L (22-29); CHLORIDE 106 mmol/L (98-107); CREATININE, SERUM 0.86 mg/dL (0.72-1.25); EST GLOMERULAR FILTRATION RATE > 60 ML/MIN (60-); GLUCOSE 106 mg/dL (74-118); MAGNESIUM 2.3 MG/DL (1.3-2.1); POTASSIUM 3.6 mmol/L (3.5-5.1); SODIUM 140 mmol/L (136-145)
[2019-11-28 07:41] LABS: FERRITIN 88.63 ng/mL (21.81-274.66)
[2019-11-28] MEDS: DOCUSATE SODIUM 100 MG CAP PO SCH ×2 (09:00→17:14)
[2019-11-28] MEDS: LACTULOSE SYRUP 20 GM/30 ML UDC PO SCH ×3 (09:00→21:48)
[2019-11-28] MEDS: SUCRALFATE 1 GM TAB PO SCH ×2 (09:00→17:14)
[2019-11-28] MEDS: RIFAXIMIN 550 MG TABLET PO SCH ×2 (09:00→17:14)
[2019-11-28] MEDS: FAMOTIDINE 20 MG/2 ML VIAL IV SCH ×2 (09:53→17:14)
[2019-11-28] MEDS ORDERED: GUAIFENESIN 600MG/DEXTROMETHORPHAN 30MG TABSR PO PRN (11:30)
[2019-11-28] MEDS ORDERED: MINERAL OIL 132 ML BTL PR ONE (12:00)
--- NOTE | 2019-11-28 12:28 | Diagnostic Imaging Report ---
EXAM: CT Chest WITHOUT intravenous contrast 11/28/2019 11:30 AM INDICATION: Pneumonia COMPARISON: Chest radiograph of 11/27/2019 TECHNIQUE: Chest was scanned utilizing a multidetector helical scanner from the lung apex through the level of the adrenal glands without administration of IV contrast. Coronal and sagittal reformations were obtained. Routine protocol was performed. IV CONTRAST: None RADIATION DOSE: Total DLP: 415 mGy*cm. Dose modulation, iterative reconstruction, and/or weight based adjustment of the mA/kV was utilized to reduce the radiation dose to as low as reasonably achievable. COMPLICATIONS: None FINDINGS: LINES/ TUBES: Left chest dual-lead pacer with leads terminating in the right atrium and right ventricle. LUNGS AND AIRWAYS: Small amount of dependent mucus in the distal trachea. Scattered areas of groundglass opacities involve the left greater than right lower lobes and to a lesser extent dependent right upper lobe. 5 mm right middle lobe pulmonary nodule (axial image 73). Posterior left upper lobe calcified granuloma. PLEURA: The pleural spaces are clear. HEART AND MEDIASTINUM: The thyroid gland is normal. No supra clavicular, axillary, mediastinal, or hilar lymphadenopathy. Calcified left hilar and small mediastinal lymph nodes. The heart is not enlarged. No pericardial effusion. Atherosclerotic calcifications involve the thoracic aorta, coronary arteries, and proximal great vessels. UPPER ABDOMEN: Nodular liver surface contour. Unchanged common bile duct dilation with a 7 mm nodule versus calculus in the distal common bile duct. Prominent air and stool-filled loops of transverse colon. BONES: Unchanged L1 compression fracture. No acute osseous injury. No suspicious lytic or blastic lesions. SOFT TISSUES: Unremarkable. IMPRESSION: Small amount of dependent mucus in the distal trachea. Scattered areas of groundglass opacities involving the left greater than right lower lobes and to a lesser extent the dependent portions of the right upper lobe may be related to aspiration. 5 mm right middle lobe pulmonary nodule. If the patient is high risk, follow-up chest CT in 12 months is optional. If the patient is low risk, no further follow-up imaging is necessary. Hepatic cirrhosis. Unchanged common bile duct dilation with a 7 mm nodule versus calculus in the dependent distal common bile duct. Consider ERCP for further evaluation. Signed by: Sal Vinson MD on 11/28/2019 12:25 PM
[2019-11-28] MEDS: AZITHROMYCIN 500MG/NS 250 ML 250 ML IV SCH (12:37)
[2019-11-28] MEDS ORDERED: SOD PHOSPHATE/SOD BIPHOSPHATE ENEMA 132 ML BTL PR ONE ×2 (13:05→13:45)
--- NOTE | 2019-11-28 13:30 | NUR ---
PATIENT HAD A LARGE BOWEL MOVEMENT
--- NOTE | 2019-11-28 14:14 | Consultation ---
DATE OF CONSULTATION: CHIEF COMPLAINT: Abdominal pain, nausea and vomiting with abnormal chest CT. HISTORY OF PRESENT ILLNESS: The patient is an 79-year-old man. He came into the hospital complaining of lower abdominal pain. He noted nausea and vomiting that has been going on for several weeks. He was found to have elevated liver enzymes and probable distal biliary obstruction and choledocholithiasis. He is scheduled for an ERCP. Subsequent CT scan of the chest showed a small amount of scattered ground glass opacities in the right lower lobe and left lower lobe. There is also a 5 mm nodule in the right middle lobe. PAST MEDICAL HISTORY: 1. Cirrhosis. 2. Anemia. 3. Thrombocytopenia. 4. History of prior permanent pacemaker. 5. Chronic back pain. PAST SURGICAL HISTORY: 1. Status post partial gastrectomy for stomach cancer. 2. Achilles tendon repair. 3. Pacemaker placement. SOCIAL HISTORY: The patient is not an active smoker or drinker. He was a prior drinker. FAMILY HISTORY: There is a history of hematologic problems in the family. ALLERGIES: NO KNOWN DRUG ALLERGIES. REVIEW OF SYSTEMS: The patient has no fever. He is not complaining of cough or chest pain. He does have some abdominal pain. He reports severe constipation. He has some nausea and vomiting. PHYSICAL EXAMINATION: VITAL SIGNS: Blood pressure is 108/70, saturation is 100%. HEENT: Shows no facial swelling or erythema. LYMPHATIC: Shows no submandibular, cervical, or supraclavicular adenopathy. CARDIAC: Reveals a regular rate and rhythm with a normal S1 and S2. LUNGS: Auscultation of lungs reveals rhonchorous breath sounds bilaterally. There is no wheezing. ABDOMEN: Soft. There is some mild tenderness. There is no rebound or guarding. EXTREMITIES: Shows no leg edema or calf tenderness. LABORATORY DATA: White blood cell count is 4.53 and hemoglobin is 12. The platelet count is 99. The BUN to creatinine ratio is normal. The carbon dioxide is 21. Other electrolytes are within normal limits. IMPRESSION: 1. Aspiration pneumonia. 2. Choledocholithiasis. 3. Constipation. 4. Cirrhosis. 5. Pulmonary nodule. PLAN: 1. The patient should complete current antibiotics. 2. Repeat CT scan of the chest in 6 months to follow up pulmonary nodule. 3. Proceed with ERCP and treatment of choledocholithiasis. MD NIKO Cabral/JAMAR /[id number]
[2019-11-28] MEDS ORDERED: IRON SUCROSE 100 MG in SODIUM CHLORIDE 0.9% 100 ML 100 ML IV SCH (20:45)
[2019-11-28] MEDS: CEFTRIAXONE SOD 1 GM/NS 50 ML 50 ML IV SCH (21:00)
--- NOTE | 2019-11-28 23:00 | NUR ---
CONSENT OBTAINED .HAD BOWEL MOVEMENT FOR MULTIPLE TIMES.CALL LIGHT WITHIN REACH.INSTRUCTED TO CALL FOR ASSISTANCE NEEDED.
[2019-11-28] MEDS: TEMAZEPAM 15 MG CAP PO PRN (23:15)
[2019-11-29] MEDS: PANTOPRAZOLE 40 MG 10ML VIAL IV SCH ×2 (03:46→16:01)
[2019-11-29 05:12] VITALS: BP 144/87
[2019-11-29] MEDS: OXYCODONE HCL 10 MG TAB CR PO SCH ×2 (05:44→15:25)
[2019-11-29] MEDS: METOCLOPRAMIDE HCL 10 MG/2ML VIAL IV SCH ×2 (05:44→11:55)
[2019-11-29 06:36] LABS: BASOPHILS % 0.7 % (0.0-1.0); EOSINOPHILS # (AUTO) 0.1 (0.0-0.4); EOSINOPHILS % 2.2 % (0.0-6.0); HEMATOCRIT 33.2 % (38.2-49.6); HEMOGLOBIN 10.8 g/dL (14.0-18.0); LYMPHOCYTES # (AUTO) 0.7 (1.0-3.2); MEAN CORPUSCULAR HEMOGLOBIN 30.3 pg (28-32); MEAN CORPUSCULAR HGB CONC 32.5 g/dL (31-35); MONOCYTES # (AUTO) 0.4 (0.2-0.8); MONOCYTES % 14.5 % (4.4-11.3); NEUTROPHILS # (AUTO) 1.5 (2.1-6.9); NEUTROPHILS % 56.2 % (38.7-80.0); PLATELET COUNT 89 x10e3/uL (140-360); RED BLOOD COUNT 3.57 x10e6/uL (4.3-5.7)
[2019-11-29 06:56] LABS: ALANINE AMINOTRANSFERASE 14 IU/L (0-55); ALBUMIN 3.1 g/dL (3.5-5.0); ALBUMIN/GLOBULIN RATIO 1.1 (0.8-2.0); ALKALINE PHOSPHATASE 59 IU/L (40-150); ANION GAP 14.2 mmol/L (8-16); BLOOD UREA NITROGEN 13 mg/dL (7-26); BUN/CREATININE RATIO 17 (6-25); CALCIUM 8.2 mg/dL (8.4-10.2); CARBON DIOXIDE 23 mmol/L (22-29); CHLORIDE 106 mmol/L (98-107); CREATININE, SERUM 0.78 mg/dL (0.72-1.25); EST GLOMERULAR FILTRATION RATE > 60 ML/MIN (60-); GLUCOSE 89 mg/dL (74-118); POTASSIUM 4.2 mmol/L (3.5-5.1); SODIUM 139 mmol/L (136-145)
--- NOTE | 2019-11-29 07:08 | NUR ---
BED SIDE SHIFT REPORT GIVEN TO ONCOMING RN.STABLE CONDITION.
[2019-11-29 07:42] VITALS: BP 126/82
[2019-11-29 08:19] VITALS: BP 126/82
[2019-11-29 08:22] LABS: EOSINOPHILS % (MANUAL) 4 % (0-7); LYMPHOCYTES % (MANUAL) 22 % (19-48); MONOCYTES % (MANUAL) 6 % (3.4-9.0); NEUTROPHILS % (MANUAL) 63 % (40-74)
[2019-11-29 08:23] LABS: RBC MORPHOLOGY COMMENT NORMAL; SMUDGE CELLS FEW
[2019-11-29 08:24] LABS: PLATELET ESTIMATE ADEQUATE; PLATELET MORPHOLOGY COMMENT NORMAL
[2019-11-29] MEDS: RIFAXIMIN 550 MG TABLET PO SCH (09:00)
[2019-11-29] MEDS: DOCUSATE SODIUM 100 MG CAP PO SCH (09:00)
[2019-11-29] MEDS: LACTULOSE SYRUP 20 GM/30 ML UDC PO SCH ×2 (09:00→15:37)
[2019-11-29] MEDS: SUCRALFATE 1 GM TAB PO SCH (09:00)
[2019-11-29] MEDS: FAMOTIDINE 20 MG/2 ML VIAL IV SCH (09:12)
[2019-11-29 11:36] VITALS: BP 142/75
[2019-11-29] MEDS: AZITHROMYCIN 500MG/NS 250 ML 250 ML IV SCH (11:55)
[2019-11-29] MEDS ORDERED: IOPAMIDOL 300MG/ML 50ML INFUS..BTL IV ONE (12:37)
--- NOTE | 2019-11-29 14:01 | Operative Report ---
DATE OF PROCEDURE: 11/29/2019 SURGEON: Leonard Mendoza MD PROCEDURE: ERCP or attempted ERCP. INDICATION: Possible bile duct stone that was not seen on the CAT scan. POSTOPERATIVE DIAGNOSES: 1. Hiatal hernia. 2. Partial gastrectomy. 3. Unable to locate the ampulla because of the post surgical changes before. PROCEDURE IN DETAIL: Risks and benefits were discussed with the patient prior to the procedure. The patient understands the risk of bleeding, infection, perforation, and medication reaction. The patient was brought to the OR without any problem and he was intubated. After the patient was intubated and sedated comfortably, an Olympus duodenoscope was inserted into the mouth. This was passed all the way into the stomach area. A partial gastrectomy was seen. Anastomosed area was noted and hiatal hernia was seen. The scope was then passed into the small bowel. Careful evaluation of the small bowel multiple times was taken and we were unable to locate the ampulla despite of multiple attempts of careful evaluations. The patient was without any problem at the end of the procedure. RECOMMENDATIONS: To resume diet and consider MRCP as well. The patient is going to resume diet. Leonard Mendoza MD DHD/MODL /[id number]
[2019-11-29] MEDS ORDERED: CEFUROXIME250 MG PO (14:36)
[2019-11-29] MEDS ORDERED: AZITHROMYCIN250 MG PO (14:36)
[2019-11-29] MEDS ORDERED: COLACE100 MG PO (14:36)
[2019-11-29] MEDS ORDERED: PANTOPRAZOLE SO40 MG PO (14:36)
[2019-11-29 15:39] VITALS: BP 125/78
--- NOTE | 2019-11-29 16:06 | Discharge Summary ---
PCP: Tg Florez MD. CONSULTING PHYSICIANS: 1. Dr. Fernie Padron with Pulmonology. 2. Dr. Leonard Mendoza with Gastroenterology. CHIEF COMPLAINT: Confused, lower quadrant abdominal pain. HISTORY OF PRESENT ILLNESS: The patient is 79-year-old male who admitted with lower abdominal pain, which he stated was severe on admission. The patient reported that the nausea and vomiting that he had experienced has been going on for about a month off and on. He admitted to having a history of liver cirrhosis and that he was confused when he came to the emergency department. Please see history and physical dictated on 11/27/2019 for past medical history, past surgical history, family history, social history, admitting vital signs and laboratory data. ALLERGIES: NO KNOWN ALLERGIES. ADMITTING DIAGNOSES: 1. Lower quadrants abdominal pain, probable distal biliary obstruction due to choledocholithiasis. 2. Sepsis, POA, possibly due to left lower lobe pneumonia (per CT). 3. Hepatic encephalopathy, liver cirrhosis with anemia and thrombocytopenia. 4. Acute hyperkalemia, improved. 5. Acute hyponatremia, improving. 6. Permanent pacemaker in [place]. 7. History of stomach cancer with radiation/chemotherapy/half of stomach removed. 8. Chronic low back pain with lumbar spondylosis. DISCHARGE DIAGNOSES: 1. Lower quadrants abdominal pain, resolved, hiatal hernia, history of stomach cancer with radiation/chemotherapy/partial gastrectomy with half of stomach removed. 2. Status post sepsis on admission, possibly due to a left lower lobe pneumonia, POA. 3. Status post hepatic encephalopathy, chronic liver cirrhosis with anemia and thrombocytopenia. 4. Permanent pacemaker in situ, unable to do MRCP magnetic resonance, cholangiopancreatography. 5. Chronic low back pain with lumbar spondylosis. CT of the abdomen and pelvis had shown left lower lobe pneumonia. 6. Findings compatible with distal biliary obstruction due to a choledochal cholelithiasis and then distal common bile duct with mild intrahepatic biliary ductal dilation and gallbladder distention. Pancreatic duct dilation can be due to pancreatic atrophy or due to distal pancreatic duct obstruction. 7. Colonic findings compatible with constipation. Ultrasound of the abdomen done showed a limited evaluation, moderate central intrahepatic biliary dilation, common bile duct measured up to 0.7 cm. No common bile duct stone by ultrasound technique. He had a bedside swallow evaluation done by speech therapy on 11/27 and passed. His B type natriuretic peptide was 85. He underwent ERCP today 8/26, which only showed a hiatal hernia and a history of partial gastrectomy. Small bowel was within normal limits. Dr. Mendoza was unable to locate the ampulla and MRCP will not be done due to the permanent pacemaker. The patient has been placed on a GI soft diet and will have dinner prior to leaving per BEN Bailey. The patient has had numerous BMs. The patient takes OxyContin at home for pain control, this will continue. The patient has follow up with Gastroenterology on an outpatient basis as directed. WBCs 2.69 (4.53) and platelets 89 (99), neutrophils 56.2%. We will continue antibiotics. The patient has been on IV azithromycin and Rocephin. We will send him home on Z-Bronson as well as cefuroxime for [address] of the chest done 11/27 showed small amount of dependent mucus in the distal trachea, scattered areas of ground-glass opacities involving the left greater than right lower lobes and to a lesser extent the dependent portions of the right upper lobe may be related to aspiration, 5 mm right middle lobe pulmonary nodule. The patient will need a followup CT in 3-6 months to follow up on the pulmonary nodule, hepatic cirrhosis, unchanged common bile duct dilation with a 7 mm nodule versus calculus in the dependent distal common bile duct. The patient received Venofer iron sucrose due to iron deficiency anemia. He received a banana bag with supplemental vitamin B12, folic acid and thiamine due to probable poor absorption from the partial gastrectomy. Today on the day of discharge, vital signs, temperature 97.1, heart rate 70, blood pressure 126/82, respirations 16, oxygen saturation 100% on room air. The patient states he feels great and is ready for discharge home. We will discharge him on a GI soft diet. Activity level as tolerated. Follow up with PCP in 1-2 weeks. Follow up with Dr. Padron with Pulmonology and Dr. Mendoza as directed. Also send him home on daily Protonix and scheduled Colace. Dictated by Elvis Seals NP MD ANATOLY BennettP/MODL /[id number]
--- NOTE | 2019-11-29 16:57 | NUR ---
Pt discharge home at this time. Pt verbalized understanding of all discharge instructions and follow up appointments. 0 s/s of acute distress noted. Pt discharged with prescriptions and verbalized understanding of all new medications.
[2019-11-29] MEDS ORDERED: FENTANYL CITRATE/PF 100MCG/2 ML INJ ONE (18:49)
[2019-11-29] MEDS ORDERED: PROPOFOL IV EMULSION 10 MG/ML 20 ML VIAL ONE (19:45)
[2019-11-29] MEDS ORDERED: SEVOFLURANE INHAL SOLN 250 ML PEN BTL ONE (19:45)
[2019-11-29] MEDS ORDERED: PHENYLEPHRINE HCL 1% 10 MG/ML VIAL ONE (19:45)
[2019-11-29] MEDS ORDERED: LIDOCAINE HCL 2% LOCAL INJ 5 ML SDV VIAL INJ ONE (19:45)
[2019-11-29] MEDS ORDERED: SUCCINYLCHOLINE CHLORIDE 20 MG/ML 10ML VIAL ONE (19:45)
== END 2019-11-29 16:57 | disposition home or self-care (01) | DRG 871 ==
LOC: ER 18:57 → ERHOLD 20:31 → MED/SURG3 11-27 00:42 → OBSVTOIN 11-27 12:15 → MED/SURG3 11-27 17:22
PROVIDERS: ADMIT Internal Medicine; ATTEND Internal Medicine
PROC: 0FJB8ZZ Inspection of Hepatobiliary Duct, Via Natural or Artificial Opening Endoscopic (ICD-10-PCS; principal; 2019-11-29 11:00)
DX: A41.9 Sepsis, unspecified organism (principal); J15.9 Unspecified bacterial pneumonia; J69.0 Pneumonitis due to inhalation of food and vomit; E87.1 Hypo-osmolality and hyponatremia; K80.51 Calculus of bile duct without cholangitis or cholecystitis with obstruction; K72.90 Hepatic failure, unspecified without coma; E87.5 Hyperkalemia; K59.00 Constipation, unspecified; Z95.0 Presence of cardiac pacemaker; M47.896 Other spondylosis, lumbar region; K44.9 Diaphragmatic hernia without obstruction or gangrene; G89.29 Other chronic pain; Z11.59 Encounter for screening for other viral diseases; R91.1 Solitary pulmonary nodule; K74.60 Unspecified cirrhosis of liver; Z85.028 Personal history of other malignant neoplasm of stomach; K70.30 Alcoholic cirrhosis of liver without ascites; D69.59 Other secondary thrombocytopenia
CPT/HCPCS: 36415; 43260; 71046; 71250; 74177; 76000; 76705; 80053; 81001; 82140; 82550; 82553; 82607; 82728; 82746; 83540; 83690; 83735; 83880; 84466; 84484; 85025; 85045; 97139; 99284; G0378; J0330; J0456; J0696; J1756; J2001; J2370; J2765; J3010; J7050; Q9967; U0002